=== PATIENT | male | born 1955 | race Caucasian/White ===

== ENCOUNTER 2017-04-02 08:38 | Inpatient (IN) | payer MEDICAID ==
[~2017-04-02] VITALS: Ht 185.4 cm; Wt 129.0 kg
[2017-04-02] MEDS ORDERED: SODIUM CHLORIDE 0.9% 1,000 ML IV ONE (10:44)
[2017-04-02] MEDS ORDERED: MORPHINE SULFATE 4 MG/ML SYRG IV ONE (11:00)
[2017-04-02] MEDS ORDERED: ONDANSETRON HCL 4 MG/2 ML VIAL IV ONE (11:00)
[2017-04-02 11:12] LABS: Basophils # (auto) 0 uL; Basophils % (auto) 0.5 % (0.0-2.0); Eosinophils # (auto) 0 uL; Eosinophils % (auto) 0.2 % (0.0-7.0); Hematocrit 55.8 % (41.0-53.0); Hemoglobin 18.6 g/dL (13.5-17.5); Lymphocytes # (auto) 0.9 uL; Lymphocytes % (auto) 9.1 % (10.0-50.0); Mean Corpuscular Hemoglobin 31.9 pg (28.0-32.0); Mean Corpuscular Hgb Conc. 33.4 g/dL (32.0-36.0); Mean Corpuscular Volume 95.6 fL (80.0-100.0); Mean Platelet Volume 10.1 fL (7.4-10.4); Monocytes % (auto) 10.4 % (0.0-12.0); Neutrophils # (auto) 7.5 uL; Neutrophils % (auto) 79.8 % (37.0-80.0); Red Cell Distribution Width 17.1 % (11.6-16.0); SUSPECT VIEW TRANSMISSION; White Blood Cell 9.4 10^3/uL (4.4-10.8)
[2017-04-02 11:14] LABS: Platelet Count (auto) 205 10^3/uL (140-450)
[2017-04-02 11:28] LABS: INR 1.14 (0.9-1.15); Partial Thromboplastin Time 24.6 sec (22.64-33.71)
[2017-04-02 11:29] LABS: Prothrombin Time 12.4 sec (9.37-12.3)
[2017-04-02 11:34] LABS: Albumin 2.7 g/dL (3.4-5.0); BUN/Creatinine Ratio 13.2; Bilirubin, Total 1.6 mg/dL (0.2-1.0); Calcium 8.8 mg/dL (8.5-10.1); Potassium 4.3 mmol/L (3.5-5.1); Total Protein 6.7 g/dL (6.4-8.2)
[2017-04-02 11:37] LABS: B-Type Natriuretic Peptide 574.73 pg/mL (0-100); Temperature: 23.7 C (20.0-25.0)
[2017-04-02] MEDS ORDERED: PIPERACILLIN-TAZOB 3.375GM 100 ML IV ONE (11:45)
[2017-04-02] MEDS ORDERED: NITROGLYCERIN 0.4 MG SL TAB SL PRN (14:45)
[2017-04-02] MEDS ORDERED: MORPHINE SULF INJ 2 MG/ML SYRINGE 1ML IV PRN (14:45)
[2017-04-02] MEDS ORDERED: DEXTROSE (50%) 50ML SYRG IV PRN (14:45)
[2017-04-02] MEDS ORDERED: FUROSEMIDE 40 MG/4 ML VIAL IV ONE (14:45)
[2017-04-02] MEDS ORDERED: ONDANSETRON HCL 4 MG/2 ML VIAL IV PRN (14:45)
[2017-04-02] MEDS ORDERED: POTASSIUM CHLORIDE 8 MEQ TAB PO ONE (14:45)
[2017-04-02] MEDS ORDERED: ENALAPRIL MALEATE 10 MG TAB PO ONE (15:00)
[2017-04-02 15:14] LABS: Allen Test Modified; Base Excess 3.7 mmol/L (-2.0-2.0); Blood 02Sat 98.6 % (96-100); Blood COHb 0.3 % (0.5-1.5); Blood MetHb 0.6 % (0.0-1.5); HCO3 34.4 mmol/L (22-26.0); HHb 1.4 % (0.0-5.0); MODE MASK - NRB; O2Hb 97.7 % (94.0-97.0); PCO2 75.6 mmHg (35.0-45.0); PCO2(T) 75.6 mmHg (35.0-45.0); Sample Type Arterial; pH 7.276 (7.350-7.450)
[2017-04-02] MEDS: ACCU-CHEK COMFORT CURVE STRIP VI SCH ×2 (17:58→23:45)
[2017-04-02 17:59] LABS: Allen Test Yes; Base Excess 2.1 mmol/L (-2.0-2.0); Blood COHb 0.5 % (0.5-1.5); Blood MetHb 0.5 % (0.0-1.5); HCO3 32.2 mmol/L (22-26.0); HHb 6.9 % (0.0-5.0); MODE NASAL CANNULA; O2Hb 92.1 % (94.0-97.0); PCO2 70.5 mmHg (35.0-45.0); PCO2(T) 70.5 mmHg (35.0-45.0); PO2 79.2 mmHg (80.0-100.0); PO2(T) 79.2 mmHg (80.0-100.0); Room 1009-ERT; Sample Type Arterial; pH 7.277 (7.350-7.450)
[2017-04-02] MEDS: InsuLIN REG 1unit/0.01ml Soln (100units/ml) SC SCH ×2 (18:02→23:46)
[2017-04-02 18:33] VITALS: BP 131/44
[2017-04-02 20:00] VITALS: BP 114/70
[2017-04-02] MEDS: HYDROcodone-ACET 5/325MG TAB PO PRN (20:29)
[2017-04-02] MEDS: ENALAPRIL MALEATE 10 MG TAB PO SCH (22:21)
[2017-04-03] VITALS (57 sets, daily range): BP systolic 57–163; BP diastolic 27–101
[2017-04-03] MEDS ORDERED: LEVO175T31 PO (00:41)
[2017-04-03] MEDS ORDERED: METO10TA3 PO (00:41)
[2017-04-03] MEDS ORDERED: [UNRECOGNIZED DRUG - CODE] PO (00:41)
[2017-04-03] MEDS ORDERED: SIMV-8 PO (00:41)
[2017-04-03] MEDS ORDERED: CHOL1TAB42 PO (00:41)
[2017-04-03] MEDS ORDERED: LORA-154 PO (00:41)
[2017-04-03] MEDS ORDERED: ESCI10TA53 PO (00:41)
[2017-04-03] MEDS ORDERED: ENA10T PO (00:41)
[2017-04-03] MEDS ORDERED: METF-372 PO (00:41)
[2017-04-03] MEDS: ACCU-CHEK COMFORT CURVE STRIP VI SCH ×3 (06:00→18:26)
[2017-04-03] MEDS: LEVOTHYROXINE SODIUM 50 MCG TAB PO SCH (06:36)
[2017-04-03] MEDS: HYDROcodone-ACET 5/325MG TAB PO PRN (06:37)
[2017-04-03] MEDS: InsuLIN REG 1unit/0.01ml Soln (100units/ml) SC SCH ×3 (06:37→18:27)
[2017-04-03 07:00] LABS: BUN/Creatinine Ratio 15.2; Calcium 8.8 mg/dL (8.5-10.1); Potassium 4.3 mmol/L (3.5-5.1)
[2017-04-03 07:09] LABS: Basophils # (auto) 0 uL; Eosinophils # (auto) 0.1 uL; Eosinophils % (auto) 0.7 % (0.0-7.0); Hematocrit 55.7 % (41.0-53.0); Hemoglobin 18.2 g/dL (13.5-17.5); Lymphocytes # (auto) 0.9 uL; Lymphocytes % (auto) 9.3 % (10.0-50.0); Mean Corpuscular Hemoglobin 31.9 pg (28.0-32.0); Mean Corpuscular Hgb Conc. 32.8 g/dL (32.0-36.0); Mean Corpuscular Volume 97.4 fL (80.0-100.0); Mean Platelet Volume 9.9 fL (7.4-10.4); Monocytes # (auto) 1.4 uL; Monocytes % (auto) 14.9 % (0.0-12.0); Neutrophils # (auto) 7.2 uL; Neutrophils % (auto) 75.1 % (37.0-80.0); Platelet Count (auto) 245 10^3/uL (140-450); Red Cell Distribution Width 17.8 % (11.6-16.0); White Blood Cell 9.6 10^3/uL (4.4-10.8)
[2017-04-03] MEDS ORDERED: ETOMIDATE (2MG/ML) 20ML VIAL IV ONE (08:29)
[2017-04-03] MEDS ORDERED: SUCCINYLCHOLINE CHLORIDE 20 MG/ML 10ML VIAL IV ONE (08:29)
[2017-04-03] MEDS ORDERED: PROPOFOL 100 ML IV ONE (08:30)
[2017-04-03] MEDS ORDERED: LEVOTHYROXINE SODIUM 100 MCG/5 ML INJ IV ONE ×2 (08:51→09:00)
[2017-04-03] MEDS: PROPOFOL 100 ML IV SCH (08:52)
[2017-04-03] MEDS ORDERED: cefTRIAXone 1GM/50ML D5W 50 ML IV ONE (09:00)
[2017-04-03 09:41] LABS: Allen Test Modified; Base Excess 0.9 mmol/L (-2.0-2.0); Blood 02Sat 96.7 % (96-100); Blood COHb 1.1 % (0.5-1.5); Blood MetHb 0.7 % (0.0-1.5); HCO3 30.8 mmol/L (22-26.0); HHb 3.2 % (0.0-5.0); MODE VENT - A/C; PCO2 69.3 mmHg (35.0-45.0); PCO2(T) 69.3 mmHg (35.0-45.0); PIP 42; PO2 96.1 mmHg (80.0-100.0); PO2(T) 96.1 mmHg (80.0-100.0); Room 0264D; Sample Type Arterial; pH 7.266 (7.350-7.450)
[2017-04-03] MEDS: FUROSEMIDE 40 MG/4 ML VIAL IV SCH (10:00)
[2017-04-03] MEDS: ENALAPRIL MALEATE 10 MG TAB PO SCH ×2 (10:00→22:00)
[2017-04-03] MEDS ORDERED: POTASSIUM CHLORIDE 8 MEQ TAB PO SCH (10:00)
[2017-04-03] MEDS: MIDAZOLAM DRIP 100 mg/100mL NS 100 ML IV SCH (11:33)
[2017-04-03] MEDS: cefTRIAXone 1GM/50ML D5W 50 ML IV SCH (13:20)
[2017-04-03] MEDS: POTASSIUM CHL 10% (20 MEQ/15ML) ORAL SOLN PO SCH (13:30)
[2017-04-03] MEDS: CLINDAMYCIN 600MG IV 50 ML IV SCH ×2 (13:50→23:00)
[2017-04-03] MEDS: NOREPINEPHRINE BITARTRATE 250 ML IV SCH (15:37)
[2017-04-03] MEDS ORDERED: LIDOCAINE 1% HCL (LOCAL ANESTH.) INJ 20ML MDV ID ONE (16:15)
[2017-04-03 18:25] LABS: Allen Test Modified; Base Excess 2.9 mmol/L (-2.0-2.0); Blood 02Sat 90.2 % (96-100); Blood COHb 0.5 % (0.5-1.5); Blood MetHb 0.5 % (0.0-1.5); HCO3 31.5 mmol/L (22-26.0); HHb 9.7 % (0.0-5.0); MODE VENT - A/C; O2Hb 89.3 % (94.0-97.0); PCO2 61.6 mmHg (35.0-45.0); PCO2(T) 61.6 mmHg (35.0-45.0); PO2 61.9 mmHg (80.0-100.0); PO2(T) 61.9 mmHg (80.0-100.0); Sample Type Arterial; pH 7.326 (7.350-7.450)
[2017-04-03] MEDS: IPRATROPIUM BROM 0.5 MG/2.5ML INH SOL NEB SCH (18:39)
[2017-04-03] MEDS: ALBUTEROL SULF 2.5 MG/0.5ML(0.5%) NEB SOLN NEB SCH (18:41)
[2017-04-03] MEDS: SODIUM CHLOR 0.9% PF (SALINE LOCK) 10ML VIAL IV SCH (23:00)
[2017-04-04] VITALS (92 sets, daily range): BP systolic 71–140; BP diastolic 50–99
[2017-04-04] MEDS: ALBUTEROL SULF 2.5 MG/0.5ML(0.5%) NEB SOLN NEB SCH ×3 (00:13→18:32)
[2017-04-04] MEDS: IPRATROPIUM BROM 0.5 MG/2.5ML INH SOL NEB SCH ×3 (00:13→18:32)
[2017-04-04] MEDS: InsuLIN REG 1unit/0.01ml Soln (100units/ml) SC SCH ×5 (00:30→23:56)
[2017-04-04] MEDS: ACCU-CHEK COMFORT CURVE STRIP VI SCH ×5 (00:30→23:56)
[2017-04-04 03:59] LABS: Basophils # (auto) 0 uL; Basophils % (auto) 0.2 % (0.0-2.0); Eosinophils # (auto) 0 uL; Eosinophils % (auto) 0.1 % (0.0-7.0); Hematocrit 55.6 % (41.0-53.0); Hemoglobin 17.9 g/dL (13.5-17.5); Lymphocytes # (auto) 0.8 uL; Lymphocytes % (auto) 6.8 % (10.0-50.0); Mean Corpuscular Hemoglobin 31.4 pg (28.0-32.0); Mean Corpuscular Hgb Conc. 32.2 g/dL (32.0-36.0); Mean Corpuscular Volume 97.5 fL (80.0-100.0); Mean Platelet Volume 9.3 fL (7.4-10.4); Monocytes # (auto) 1.4 uL; Monocytes % (auto) 11.5 % (0.0-12.0); Neutrophils % (auto) 81.4 % (37.0-80.0); Platelet Count (auto) 228 10^3/uL (140-450); Red Cell Distribution Width 17.7 % (11.6-16.0); White Blood Cell 12.3 10^3/uL (4.4-10.8)
[2017-04-04 04:16] LABS: Albumin 2.1 g/dL (3.4-5.0); Calcium 8.9 mg/dL (8.5-10.1); Potassium 4.2 mmol/L (3.5-5.1)
[2017-04-04 04:21] LABS: BUN/Creatinine Ratio 15.8
[2017-04-04 04:34] LABS: Bilirubin, Total 1.6 mg/dL (0.2-1.0); Total Protein 6.2 g/dL (6.4-8.2)
[2017-04-04] MEDS: CLINDAMYCIN 600MG IV 50 ML IV SCH ×3 (06:00→21:36)
[2017-04-04] MEDS: PROPOFOL 100 ML IV SCH (06:14)
[2017-04-04 07:35] LABS: Allen Test Yes; Base Excess 1.7 mmol/L (-2.0-2.0); Blood 02Sat 93.8 % (96-100); Blood COHb 0.8 % (0.5-1.5); Blood MetHb 0.4 % (0.0-1.5); HCO3 27.8 mmol/L (22-26.0); HHb 6.1 % (0.0-5.0); MODE VENT - A/C; O2Hb 92.7 % (94.0-97.0); PO2 72.1 mmHg (80.0-100.0); PO2(T) 72.1 mmHg (80.0-100.0); Sample Type Arterial
[2017-04-04] MEDS: cefTRIAXone 1GM/50ML D5W 50 ML IV SCH (09:06)
[2017-04-04] MEDS: FUROSEMIDE 40 MG/4 ML VIAL IV SCH (09:06)
[2017-04-04] MEDS: SODIUM CHLOR 0.9% PF (SALINE LOCK) 10ML VIAL IV SCH ×2 (09:07→21:37)
[2017-04-04] MEDS: ENALAPRIL MALEATE 10 MG TAB PO SCH (09:07)
[2017-04-04] MEDS: LEVOTHYROXINE SODIUM 50 MCG TAB PO SCH (09:07)
[2017-04-04] MEDS: POTASSIUM CHL 10% (20 MEQ/15ML) ORAL SOLN PO SCH (09:07)
[2017-04-04] MEDS: HYDROmorphone HCL 2 MG/ML VL IV PRN ×3 (09:13→20:09)
[2017-04-04] MEDS: MIDAZOLAM DRIP 100 mg/100mL NS 100 ML IV SCH (10:48)
[2017-04-04] MEDS: NOREPINEPHRINE BITARTRATE 250 ML IV SCH (10:49)
[2017-04-04] MEDS ORDERED: Diabetisource AC 1 Liter GT SCH (11:00)
[2017-04-04] MEDS ORDERED: ENOXAPARIN SOD 40 MG/0.4 ML SYRINGE SC ONE (11:30)
[2017-04-04] MEDS ORDERED: PANTOPRAZOLE SODIUM 40 MG/10 ML VIAL IV ONE (11:45)
[2017-04-05] VITALS (100 sets, daily range): BP systolic 92–146; BP diastolic 58–100
[2017-04-05] MEDS: MIDAZOLAM DRIP 100 mg/100mL NS 100 ML IV SCH
[2017-04-05] MEDS: IPRATROPIUM BROM 0.5 MG/2.5ML INH SOL NEB SCH ×4 (00:27→18:21)
[2017-04-05] MEDS: ALBUTEROL SULF 2.5 MG/0.5ML(0.5%) NEB SOLN NEB SCH ×4 (00:27→18:21)
[2017-04-05] MEDS: HYDROmorphone HCL 2 MG/ML VL IV PRN ×3 (01:33→11:08)
[2017-04-05 01:59] LABS: Allen Test Yes; Base Excess 1.4 mmol/L (-2.0-2.0); Blood 02Sat 89.7 % (96-100); Blood COHb 0.3 % (0.5-1.5); Blood MetHb 0.5 % (0.0-1.5); HCO3 27.3 mmol/L (22-26.0); HHb 10.2 % (0.0-5.0); MODE VENT - A/C; PCO2 46.8 mmHg (35.0-45.0); PCO2(T) 46.8 mmHg (35.0-45.0); PO2 60.2 mmHg (80.0-100.0); PO2(T) 60.2 mmHg (80.0-100.0); Sample Type Arterial; pH 7.384 (7.350-7.450)
[2017-04-05] MEDS: PROPOFOL 100 ML IV SCH (03:36)
[2017-04-05 04:17] LABS: Basophils # (auto) 0 uL; Basophils % (auto) 0.2 % (0.0-2.0); Eosinophils # (auto) 0 uL; Eosinophils % (auto) 0.2 % (0.0-7.0); Hemoglobin 17.8 g/dL (13.5-17.5); Lymphocytes # (auto) 0.7 uL; Lymphocytes % (auto) 6.2 % (10.0-50.0); Mean Corpuscular Hemoglobin 31.6 pg (28.0-32.0); Mean Corpuscular Hgb Conc. 32.3 g/dL (32.0-36.0); Mean Corpuscular Volume 97.9 fL (80.0-100.0); Mean Platelet Volume 8.8 fL (7.4-10.4); Monocytes # (auto) 1.3 uL; Neutrophils # (auto) 8.5 uL; Neutrophils % (auto) 81.4 % (37.0-80.0); Platelet Count (auto) 213 10^3/uL (140-450); Red Cell Distribution Width 17.7 % (11.6-16.0); White Blood Cell 10.5 10^3/uL (4.4-10.8)
[2017-04-05 04:45] LABS: BUN/Creatinine Ratio 21.2; Calcium 8.8 mg/dL (8.5-10.1); Potassium 4.5 mmol/L (3.5-5.1)
[2017-04-05] MEDS: CLINDAMYCIN 600MG IV 50 ML IV SCH ×3 (05:41→21:40)
[2017-04-05] MEDS: ACCU-CHEK COMFORT CURVE STRIP VI SCH ×3 (05:42→17:39)
[2017-04-05] MEDS: InsuLIN REG 1unit/0.01ml Soln (100units/ml) SC SCH ×3 (05:42→18:06)
[2017-04-05] MEDS: LEVOTHYROXINE SODIUM 50 MCG TAB PO SCH (06:30)
[2017-04-05 08:57] LABS: Urine Bilirubin Negative (Negative); Urine Color Yellow (Yellow); Urine Glucose TRACE mg/dL (Normal); Urine Nitrite Negative (Negative); Urine RBC 75 /hpf (0 - 3); Urine Squamous Epithelial Cell FEW /hpf (<5)
[2017-04-05 08:58] LABS: Urine Blood 3+ /uL (Negative); Urine Ketone 1+ (Negative)
[2017-04-05] MEDS ORDERED: ENOXAPARIN SOD 40 MG/0.4 ML SYRINGE SC SCH (10:00)
[2017-04-05] MEDS ORDERED: ENOXAPARIN SOD 100 MG/1 ML SYRINGE SC SCH (10:00)
[2017-04-05] MEDS: cefTRIAXone 1GM/50ML D5W 50 ML IV SCH (10:14)
[2017-04-05] MEDS: PANTOPRAZOLE SODIUM 40 MG/10 ML VIAL IV SCH (10:15)
[2017-04-05] MEDS: FUROSEMIDE 40 MG/4 ML VIAL IV SCH (10:15)
[2017-04-05] MEDS: POTASSIUM CHL 10% (20 MEQ/15ML) ORAL SOLN PO SCH (10:15)
[2017-04-05] MEDS: SODIUM CHLOR 0.9% PF (SALINE LOCK) 10ML VIAL IV SCH ×2 (10:15→21:40)
[2017-04-05 10:45] LABS: Allen Test Yes; Base Excess 4.2 mmol/L (-2.0-2.0); Blood 02Sat 92.3 % (96-100); Blood COHb 0.3 % (0.5-1.5); Blood MetHb 0.5 % (0.0-1.5); HCO3 28.7 mmol/L (22-26.0); HHb 7.6 % (0.0-5.0); MODE VENT - A/C; O2Hb 91.6 % (94.0-97.0); PCO2 41.9 mmHg (35.0-45.0); PCO2(T) 41.9 mmHg (35.0-45.0); PO2 64.9 mmHg (80.0-100.0); PO2(T) 64.9 mmHg (80.0-100.0); Sample Type Arterial; pH 7.453 (7.350-7.450)
[2017-04-05] MEDS ORDERED: ENOXAPARIN SOD 120 MG/0.8 ML SYRINGE SC ONE (12:15)
[2017-04-05] MEDS ORDERED: Diabetisource AC 1 Liter GT SCH ×3 (13:00)
[2017-04-05 14:42] LABS: Allen Test Yes; Base Excess 3.2 mmol/L (-2.0-2.0); Blood 02Sat 91.2 % (96-100); Blood COHb 0.3 % (0.5-1.5); Blood MetHb 0.5 % (0.0-1.5); HCO3 28.7 mmol/L (22-26.0); HHb 8.7 % (0.0-5.0); MODE VENT - A/C; O2Hb 90.5 % (94.0-97.0); PCO2 45.7 mmHg (35.0-45.0); PCO2(T) 45.7 mmHg (35.0-45.0); PO2 63.5 mmHg (80.0-100.0); PO2(T) 63.5 mmHg (80.0-100.0); Sample Type Arterial; pH 7.416 (7.350-7.450)
[2017-04-05] MEDS: INSULIN DETEMIR(LEVEMIR) 1unit/0.01ml Soln (100units/ml) SC SCH ×2 (14:58→21:44)
[2017-04-05] MEDS: NOREPINEPHRINE BITARTRATE 250 ML IV SCH (15:00)
[2017-04-05] MEDS: ENOXAPARIN SOD 120 MG/0.8 ML SYRINGE SC SCH (21:49)
[2017-04-06] VITALS (109 sets, daily range): BP systolic 70–142; BP diastolic 38–98
[2017-04-06] MEDS: MIDAZOLAM DRIP 100 mg/100mL NS 100 ML IV SCH ×3 (00:20→23:00)
[2017-04-06] MEDS: InsuLIN REG 1unit/0.01ml Soln (100units/ml) SC SCH ×5 (00:21→23:43)
[2017-04-06] MEDS: ACCU-CHEK COMFORT CURVE STRIP VI SCH ×5 (00:21→23:42)
[2017-04-06] MEDS: IPRATROPIUM BROM 0.5 MG/2.5ML INH SOL NEB SCH ×4 (00:53→18:55)
[2017-04-06] MEDS: ALBUTEROL SULF 2.5 MG/0.5ML(0.5%) NEB SOLN NEB SCH ×4 (00:53→18:55)
[2017-04-06] MEDS: PROPOFOL 100 ML IV SCH ×2 (00:58→22:20)
[2017-04-06] MEDS: HYDROcodone-ACET 5/325MG TAB PO PRN ×2 (04:42→22:12)
[2017-04-06 04:43] LABS: Basophils # (auto) 0 uL; Basophils % (auto) 0.3 % (0.0-2.0); Eosinophils # (auto) 0 uL; Eosinophils % (auto) 0.5 % (0.0-7.0); Hematocrit 54.1 % (41.0-53.0); Hemoglobin 17.5 g/dL (13.5-17.5); Lymphocytes # (auto) 0.8 uL; Lymphocytes % (auto) 8.3 % (10.0-50.0); Mean Corpuscular Hemoglobin 31.6 pg (28.0-32.0); Mean Corpuscular Hgb Conc. 32.4 g/dL (32.0-36.0); Mean Corpuscular Volume 97.6 fL (80.0-100.0); Mean Platelet Volume 9.6 fL (7.4-10.4); Monocytes # (auto) 1.2 uL; Neutrophils # (auto) 7.1 uL; Neutrophils % (auto) 77.9 % (37.0-80.0); Platelet Count (auto) 177 10^3/uL (140-450); Red Cell Distribution Width 17.3 % (11.6-16.0); White Blood Cell 9.1 10^3/uL (4.4-10.8)
[2017-04-06] MEDS: Diabetisource AC 1 Liter GT SCH (04:43)
[2017-04-06 05:01] LABS: BUN/Creatinine Ratio 22.8; Potassium 4.3 mmol/L (3.5-5.1)
[2017-04-06] MEDS: CLINDAMYCIN 600MG IV 50 ML IV SCH ×3 (06:19→22:07)
[2017-04-06] MEDS: LEVOTHYROXINE SODIUM 50 MCG TAB PO SCH (06:20)
[2017-04-06 07:00] LABS: Base Excess 3.2 mmol/L (-2.0-2.0); Blood 02Sat 97.6 % (96-100); Blood COHb 1.2 % (0.5-1.5); Blood MetHb 0.4 % (0.0-1.5); HCO3 27.4 mmol/L (22-26.0); HHb 2.4 % (0.0-5.0); MODE VENT - A/C; PCO2 40.1 mmHg (35.0-45.0); PCO2(T) 40.1 mmHg (35.0-45.0); PO2 100.8 mmHg (80.0-100.0); PO2(T) 100.8 mmHg (80.0-100.0); Sample Type Arterial; pH 7.452 (7.350-7.450)
[2017-04-06] MEDS: cefTRIAXone 1GM/50ML D5W 50 ML IV SCH (08:54)
[2017-04-06] MEDS: HYDROmorphone HCL 2 MG/ML VL IV PRN ×2 (08:55→14:05)
[2017-04-06] MEDS: PANTOPRAZOLE SODIUM 40 MG/10 ML VIAL IV SCH (10:07)
[2017-04-06] MEDS: ENOXAPARIN SOD 120 MG/0.8 ML SYRINGE SC SCH ×2 (10:07→22:08)
[2017-04-06] MEDS: POTASSIUM CHL 10% (20 MEQ/15ML) ORAL SOLN PO SCH (10:08)
[2017-04-06] MEDS: SODIUM CHLOR 0.9% PF (SALINE LOCK) 10ML VIAL IV SCH ×2 (10:08→22:07)
[2017-04-06] MEDS: FUROSEMIDE 40 MG TAB PO SCH (10:20)
[2017-04-06] MEDS: INSULIN DETEMIR(LEVEMIR) 1unit/0.01ml Soln (100units/ml) SC SCH ×2 (10:30→22:08)
[2017-04-06] MEDS: NOREPINEPHRINE BITARTRATE 250 ML IV SCH (15:40)
[2017-04-06 16:47] LABS: Base Excess 1.2 mmol/L (-2.0-2.0); Blood 02Sat 91.6 % (96-100); Blood COHb 0.9 % (0.5-1.5); Blood MetHb 0.3 % (0.0-1.5); HCO3 26.5 mmol/L (22-26.0); HHb 8.3 % (0.0-5.0); MODE VENT - A/C; O2Hb 90.5 % (94.0-97.0); Sample Type Arterial; pH 7.397 (7.350-7.450)
[2017-04-07] VITALS (96 sets, daily range): BP systolic 76–127; BP diastolic 48–100
[2017-04-07] MEDS: IPRATROPIUM BROM 0.5 MG/2.5ML INH SOL NEB SCH ×4 (00:15→18:11)
[2017-04-07] MEDS: ALBUTEROL SULF 2.5 MG/0.5ML(0.5%) NEB SOLN NEB SCH ×4 (00:15→18:11)
[2017-04-07] MEDS: MIDAZOLAM DRIP 100 mg/100mL NS 100 ML IV SCH ×3 (05:00→23:57)
[2017-04-07] MEDS: Diabetisource AC 1 Liter GT SCH (05:00)
[2017-04-07] MEDS: HYDROcodone-ACET 5/325MG TAB PO PRN ×3 (05:01→22:31)
[2017-04-07 05:40] LABS: Basophils # (auto) 0 uL; Basophils % (auto) 0.3 % (0.0-2.0); Eosinophils # (auto) 0.1 uL; Eosinophils % (auto) 1.6 % (0.0-7.0); Hematocrit 51.3 % (41.0-53.0); Hemoglobin 16.5 g/dL (13.5-17.5); Lymphocytes # (auto) 0.9 uL; Lymphocytes % (auto) 10.6 % (10.0-50.0); Mean Corpuscular Hemoglobin 31.5 pg (28.0-32.0); Mean Corpuscular Hgb Conc. 32.2 g/dL (32.0-36.0); Mean Corpuscular Volume 97.8 fL (80.0-100.0); Mean Platelet Volume 9.9 fL (7.4-10.4); Monocytes # (auto) 1.1 uL; Monocytes % (auto) 13.7 % (0.0-12.0); Neutrophils # (auto) 6.1 uL; Neutrophils % (auto) 73.8 % (37.0-80.0); Platelet Count (auto) 179 10^3/uL (140-450); Red Cell Distribution Width 18.1 % (11.6-16.0); White Blood Cell 8.2 10^3/uL (4.4-10.8)
[2017-04-07 06:01] LABS: Albumin 2.3 g/dL (3.4-5.0); BUN/Creatinine Ratio 24.6; Potassium 4.7 mmol/L (3.5-5.1)
[2017-04-07 06:03] LABS: Bilirubin, Total 1.2 mg/dL (0.2-1.0); Total Protein 6.9 g/dL (6.4-8.2)
[2017-04-07] MEDS: ACCU-CHEK COMFORT CURVE STRIP VI SCH ×3 (06:30→18:26)
[2017-04-07] MEDS: CLINDAMYCIN 600MG IV 50 ML IV SCH ×3 (06:30→21:34)
[2017-04-07] MEDS: InsuLIN REG 1unit/0.01ml Soln (100units/ml) SC SCH ×4 (06:31→23:57)
[2017-04-07] MEDS: LEVOTHYROXINE SODIUM 50 MCG TAB PO SCH (06:32)
[2017-04-07] MEDS: cefTRIAXone 1GM/50ML D5W 50 ML IV SCH (08:43)
[2017-04-07] MEDS: INSULIN DETEMIR(LEVEMIR) 1unit/0.01ml Soln (100units/ml) SC SCH ×2 (10:00→21:36)
[2017-04-07] MEDS: SODIUM CHLOR 0.9% PF (SALINE LOCK) 10ML VIAL IV SCH ×2 (10:12→21:36)
[2017-04-07] MEDS: PANTOPRAZOLE SODIUM 40 MG/10 ML VIAL IV SCH (10:12)
[2017-04-07] MEDS: ENOXAPARIN SOD 120 MG/0.8 ML SYRINGE SC SCH ×2 (10:12→21:34)
[2017-04-07] MEDS: POTASSIUM CHL 10% (20 MEQ/15ML) ORAL SOLN PO SCH (10:12)
[2017-04-07] MEDS: FUROSEMIDE 40 MG TAB PO SCH (10:12)
[2017-04-07 12:50] LABS: Allen Test Modified; Base Excess 6.2 mmol/L (-2.0-2.0); Blood 02Sat 92.9 % (96-100); Blood COHb 0.9 % (0.5-1.5); Blood MetHb 0.3 % (0.0-1.5); HCO3 32.3 mmol/L (22-26.0); MODE VENT - A/C; O2Hb 91.8 % (94.0-97.0); PCO2 50.8 mmHg (35.0-45.0); PCO2(T) 52.6 mmHg (35.0-45.0); PO2 70.1 mmHg (80.0-100.0); Sample Type Arterial; pH 7.421 (7.350-7.450)
[2017-04-07] MEDS: NOREPINEPHRINE BITARTRATE 250 ML IV SCH (15:00)
[2017-04-07 15:56] LABS: BUN/Creatinine Ratio 27.7; Calcium 8.5 mg/dL (8.5-10.1); Potassium 4.1 mmol/L (3.5-5.1)
[2017-04-07] MEDS: FREE WATER GT SCH (18:26)
[2017-04-07] MEDS: PROPOFOL 100 ML IV SCH (19:42)
[2017-04-08] VITALS (105 sets, daily range): BP systolic 83–145; BP diastolic 52–97
[2017-04-08] MEDS: ACCU-CHEK COMFORT CURVE STRIP VI SCH ×4 (00:04→17:59)
[2017-04-08] MEDS: FREE WATER GT SCH ×4 (00:04→18:00)
[2017-04-08] MEDS: ALBUTEROL SULF 2.5 MG/0.5ML(0.5%) NEB SOLN NEB SCH ×4 (00:15→18:24)
[2017-04-08] MEDS: IPRATROPIUM BROM 0.5 MG/2.5ML INH SOL NEB SCH ×4 (00:15→18:24)
[2017-04-08] MEDS: HYDROcodone-ACET 5/325MG TAB PO PRN (05:04)
[2017-04-08] MEDS: CLINDAMYCIN 600MG IV 50 ML IV SCH ×3 (06:22→22:00)
[2017-04-08] MEDS: LEVOTHYROXINE SODIUM 50 MCG TAB PO SCH (06:23)
[2017-04-08] MEDS: InsuLIN REG 1unit/0.01ml Soln (100units/ml) SC SCH ×3 (06:23→17:59)
[2017-04-08 07:29] LABS: Base Excess 6.8 mmol/L (-2.0-2.0); Blood 02Sat 94.6 % (96-100); Blood COHb 1.5 % (0.5-1.5); Blood MetHb 0.3 % (0.0-1.5); HCO3 32.6 mmol/L (22-26.0); HHb 5.3 % (0.0-5.0); MODE VENT - A/C; O2Hb 92.9 % (94.0-97.0); PCO2 49.6 mmHg (35.0-45.0); PCO2(T) 49.6 mmHg (35.0-45.0); PO2 74.6 mmHg (80.0-100.0); PO2(T) 74.6 mmHg (80.0-100.0); Sample Type Arterial; pH 7.435 (7.350-7.450)
[2017-04-08] MEDS: MIDAZOLAM DRIP 100 mg/100mL NS 100 ML IV SCH ×2 (07:32→21:35)
[2017-04-08] MEDS: cefTRIAXone 1GM/50ML D5W 50 ML IV SCH (09:13)
[2017-04-08] MEDS: PANTOPRAZOLE SODIUM 40 MG/10 ML VIAL IV SCH (09:52)
[2017-04-08] MEDS: SODIUM CHLOR 0.9% PF (SALINE LOCK) 10ML VIAL IV SCH ×2 (09:52→22:00)
[2017-04-08] MEDS: FUROSEMIDE 40 MG TAB PO SCH (09:53)
[2017-04-08] MEDS: POTASSIUM CHL 10% (20 MEQ/15ML) ORAL SOLN PO SCH (09:53)
[2017-04-08] MEDS: ENOXAPARIN SOD 120 MG/0.8 ML SYRINGE SC SCH ×2 (09:53→22:00)
[2017-04-08] MEDS: INSULIN DETEMIR(LEVEMIR) 1unit/0.01ml Soln (100units/ml) SC SCH ×2 (10:18→22:00)
[2017-04-08] MEDS ORDERED: FUROSEMIDE 40 MG/4 ML VIAL IV ONE (12:30)
[2017-04-08] MEDS ORDERED: LEVOTHYROXINE SODIUM 100 MCG/5 ML INJ IV ONE (12:30)
[2017-04-08] MEDS ORDERED: POTASSIUM CHL 10% (20 MEQ/15ML) ORAL SOLN PO ONE (12:30)
[2017-04-08] MEDS: NOREPINEPHRINE BITARTRATE 250 ML IV SCH (15:00)
[2017-04-08] MEDS: PROPOFOL 100 ML IV SCH ×2 (17:04→21:35)
[2017-04-09] VITALS (105 sets, daily range): BP systolic 82–156; BP diastolic 48–95
[2017-04-09] MEDS: ALBUTEROL SULF 2.5 MG/0.5ML(0.5%) NEB SOLN NEB SCH ×4 (00:19→18:14)
[2017-04-09] MEDS: IPRATROPIUM BROM 0.5 MG/2.5ML INH SOL NEB SCH ×4 (00:19→18:14)
[2017-04-09 04:01] LABS: Basophils # (auto) 0 uL; Eosinophils # (auto) 0.2 uL; Hematocrit 50.4 % (41.0-53.0); Lymphocytes # (auto) 0.8 uL; Lymphocytes % (auto) 9.9 % (10.0-50.0); Mean Corpuscular Hemoglobin 31.6 pg (28.0-32.0); Mean Corpuscular Hgb Conc. 31.8 g/dL (32.0-36.0); Mean Corpuscular Volume 99.3 fL (80.0-100.0); Mean Platelet Volume 10.2 fL (7.4-10.4); Monocytes % (auto) 12.3 % (0.0-12.0); Neutrophils # (auto) 5.9 uL; Neutrophils % (auto) 75.8 % (37.0-80.0); Platelet Count (auto) 161 10^3/uL (140-450); Red Cell Distribution Width 17.5 % (11.6-16.0); SUSPECT VIEW TRANSMISSION; White Blood Cell 7.8 10^3/uL (4.4-10.8)
[2017-04-09 04:18] LABS: BUN/Creatinine Ratio 27.9; Calcium 9.1 mg/dL (8.5-10.1); Potassium 4.2 mmol/L (3.5-5.1)
[2017-04-09] MEDS: InsuLIN REG 1unit/0.01ml Soln (100units/ml) SC SCH ×4 (06:00→17:58)
[2017-04-09] MEDS: ACCU-CHEK COMFORT CURVE STRIP VI SCH ×4 (06:19→17:58)
[2017-04-09] MEDS: LEVOTHYROXINE SODIUM 50 MCG TAB PO SCH (06:19)
[2017-04-09] MEDS: FREE WATER GT SCH ×5 (06:19→22:02)
[2017-04-09] MEDS: CLINDAMYCIN 600MG IV 50 ML IV SCH ×3 (06:19→22:01)
[2017-04-09] MEDS: PROPOFOL 100 ML IV SCH ×2 (06:58→20:14)
[2017-04-09 07:10] LABS: Allen Test Yes; Base Excess 8.3 mmol/L (-2.0-2.0); Blood 02Sat 92.2 % (96-100); Blood COHb 1.2 % (0.5-1.5); Blood MetHb 0.3 % (0.0-1.5); HCO3 34.1 mmol/L (22-26.0); HHb 7.7 % (0.0-5.0); MODE VENT - A/C; O2Hb 90.8 % (94.0-97.0); PCO2 49.9 mmHg (35.0-45.0); PCO2(T) 49.9 mmHg (35.0-45.0); PO2 64.2 mmHg (80.0-100.0); PO2(T) 64.2 mmHg (80.0-100.0); Sample Type Arterial; pH 7.452 (7.350-7.450)
[2017-04-09] MEDS: cefTRIAXone 1GM/50ML D5W 50 ML IV SCH (09:18)
[2017-04-09] MEDS: SODIUM CHLOR 0.9% PF (SALINE LOCK) 10ML VIAL IV SCH ×2 (09:35→20:14)
[2017-04-09] MEDS: PANTOPRAZOLE SODIUM 40 MG/10 ML VIAL IV SCH (09:35)
[2017-04-09] MEDS: FUROSEMIDE 40 MG TAB PO SCH (09:36)
[2017-04-09] MEDS: ENOXAPARIN SOD 120 MG/0.8 ML SYRINGE SC SCH ×2 (09:36→22:01)
[2017-04-09] MEDS: HYDROcodone-ACET 5/325MG TAB PO PRN ×2 (09:36→16:41)
[2017-04-09] MEDS: POTASSIUM CHL 10% (20 MEQ/15ML) ORAL SOLN PO SCH (09:36)
[2017-04-09] MEDS: INSULIN DETEMIR(LEVEMIR) 1unit/0.01ml Soln (100units/ml) SC SCH ×2 (09:42→22:04)
[2017-04-09] MEDS: Diabetisource AC 1 Liter GT SCH (12:46)
[2017-04-09] MEDS ORDERED: MORPHINE SULF INJ 2 MG/ML SYRINGE 1ML IV PRN (13:00)
[2017-04-09] MEDS ORDERED: FUROSEMIDE 40 MG/4 ML VIAL IV ONE (13:00)
[2017-04-09] MEDS ORDERED: POTASSIUM CHL 10% (20 MEQ/15ML) ORAL SOLN PO ONE (13:00)
[2017-04-09] MEDS ORDERED: LEVOTHYROXINE SODIUM 100 MCG/5 ML INJ IV ONE (13:00)
[2017-04-09] MEDS: NOREPINEPHRINE BITARTRATE 250 ML IV SCH (15:00)
[2017-04-09] MEDS: HYDROmorphone HCL 2 MG/ML VL IV PRN (22:45)
[2017-04-09 23:13] LABS: Allen Test Modified; Base Excess 9.6 mmol/L (-2.0-2.0); Blood 02Sat 96.3 % (96-100); Blood COHb 1.2 % (0.5-1.5); Blood MetHb 0.3 % (0.0-1.5); HCO3 35.5 mmol/L (22-26.0); HHb 3.6 % (0.0-5.0); MODE VENT - A/C; O2Hb 94.9 % (94.0-97.0); PCO2 51.3 mmHg (35.0-45.0); PCO2(T) 51.3 mmHg (35.0-45.0); PO2 86.9 mmHg (80.0-100.0); PO2(T) 86.9 mmHg (80.0-100.0); Sample Type Arterial; pH 7.458 (7.350-7.450)
[2017-04-10] VITALS (105 sets, daily range): BP systolic 79–143; BP diastolic 41–96
[2017-04-10] MEDS: ACCU-CHEK COMFORT CURVE STRIP VI SCH ×4 (00:14→18:28)
[2017-04-10] MEDS: InsuLIN REG 1unit/0.01ml Soln (100units/ml) SC SCH ×4 (00:15→18:28)
[2017-04-10] MEDS: IPRATROPIUM BROM 0.5 MG/2.5ML INH SOL NEB SCH ×4 (00:57→18:24)
[2017-04-10] MEDS: ALBUTEROL SULF 2.5 MG/0.5ML(0.5%) NEB SOLN NEB SCH ×4 (00:57→18:24)
[2017-04-10] MEDS: PROPOFOL 100 ML IV SCH ×3 (02:52→14:38)
[2017-04-10] MEDS: CLINDAMYCIN 600MG IV 50 ML IV SCH ×2 (05:59→14:37)
[2017-04-10] MEDS: LEVOTHYROXINE SODIUM 50 MCG TAB PO SCH (05:59)
[2017-04-10] MEDS: FREE WATER GT SCH ×3 (05:59→18:28)
[2017-04-10 06:33] LABS: Calcium 8.9 mg/dL (8.5-10.1); Potassium 3.9 mmol/L (3.5-5.1)
[2017-04-10 06:35] LABS: BUN/Creatinine Ratio 25.6
[2017-04-10 07:40] LABS: Allen Test Yes; Base Excess 6.8 mmol/L (-2.0-2.0); Blood 02Sat 95.3 % (96-100); Blood COHb 0.9 % (0.5-1.5); Blood MetHb 0.4 % (0.0-1.5); HCO3 32.5 mmol/L (22-26.0); HHb 4.6 % (0.0-5.0); MODE VENT - A/C; O2Hb 94.1 % (94.0-97.0); PCO2 49.5 mmHg (35.0-45.0); PCO2(T) 49.5 mmHg (35.0-45.0); PO2 81.7 mmHg (80.0-100.0); PO2(T) 81.7 mmHg (80.0-100.0); Sample Type Arterial; pH 7.435 (7.350-7.450)
[2017-04-10] MEDS: NOREPINEPHRINE BITARTRATE 250 ML IV SCH ×2 (08:10→14:37)
[2017-04-10] MEDS: HYDROmorphone HCL 2 MG/ML VL IV PRN (08:36)
[2017-04-10] MEDS: MIDAZOLAM DRIP 100 mg/100mL NS 100 ML IV SCH ×2 (08:52→23:19)
[2017-04-10] MEDS: cefTRIAXone 1GM/50ML D5W 50 ML IV SCH (08:56)
[2017-04-10] MEDS: SODIUM CHLOR 0.9% PF (SALINE LOCK) 10ML VIAL IV SCH ×2 (10:08→21:07)
[2017-04-10] MEDS: PANTOPRAZOLE SODIUM 40 MG/10 ML VIAL IV SCH (10:08)
[2017-04-10] MEDS: FUROSEMIDE 40 MG TAB PO SCH (10:09)
[2017-04-10] MEDS: POTASSIUM CHL 10% (20 MEQ/15ML) ORAL SOLN PO SCH (10:09)
[2017-04-10] MEDS: ENOXAPARIN SOD 120 MG/0.8 ML SYRINGE SC SCH (10:09)
[2017-04-10] MEDS: INSULIN DETEMIR(LEVEMIR) 1unit/0.01ml Soln (100units/ml) SC SCH ×2 (10:38→21:10)
[2017-04-10] MEDS: D5W 5% 1,000 ML IV SCH (13:10)
[2017-04-10] MEDS ORDERED: IOHEXOL 350 MG/ML 100ML IJ ONE (16:12)
[2017-04-10] MEDS: LACTULOSE 20Gm/30ML SOLN PO SCH (18:28)
[2017-04-10] MEDS: PIPERACILLIN-TAZOB 3.375GM 100 ML IV SCH (18:28)
[2017-04-10] MEDS: ENOXAPARIN SOD 150 MG/1 ML SYRINGE SC SCH (21:07)
[2017-04-10] MEDS ORDERED: MIDAZOLAM DRIP 100 mg/100mL NS 100 ML IV ONE (23:13)
[2017-04-11] VITALS (104 sets, daily range): BP systolic 84–128; BP diastolic 49–91
[2017-04-11] MEDS: ALBUTEROL SULF 2.5 MG/0.5ML(0.5%) NEB SOLN NEB SCH ×4 (00:10→18:18)
[2017-04-11] MEDS: IPRATROPIUM BROM 0.5 MG/2.5ML INH SOL NEB SCH ×4 (00:10→18:18)
[2017-04-11] MEDS: PROPOFOL 100 ML IV SCH (00:37)
[2017-04-11 04:07] LABS: Basophils # (auto) 0 uL; Basophils % (auto) 0.3 % (0.0-2.0); Eosinophils # (auto) 0.2 uL; Eosinophils % (auto) 2.8 % (0.0-7.0); Hematocrit 48.9 % (41.0-53.0); Hemoglobin 15.6 g/dL (13.5-17.5); Lymphocytes # (auto) 1.2 uL; Lymphocytes % (auto) 17.2 % (10.0-50.0); Mean Corpuscular Hemoglobin 31.5 pg (28.0-32.0); Mean Corpuscular Volume 98.6 fL (80.0-100.0); Mean Platelet Volume 10.9 fL (7.4-10.4); Monocytes # (auto) 0.8 uL; Monocytes % (auto) 12.6 % (0.0-12.0); Neutrophils # (auto) 4.5 uL; Neutrophils % (auto) 67.1 % (37.0-80.0); Platelet Count (auto) 243 10^3/uL (140-450); Red Cell Distribution Width 17.1 % (11.6-16.0); SUSPECT VIEW TRANSMISSION; White Blood Cell 6.7 10^3/uL (4.4-10.8)
[2017-04-11 04:22] LABS: Calcium 8.9 mg/dL (8.5-10.1); Potassium 3.9 mmol/L (3.5-5.1)
[2017-04-11 04:24] LABS: Albumin 2.2 g/dL (3.4-5.0)
[2017-04-11 04:38] LABS: Bilirubin, Total 0.7 mg/dL (0.2-1.0); Total Protein 6.7 g/dL (6.4-8.2)
[2017-04-11] MEDS: HYDROcodone-ACET 5/325MG TAB PO PRN ×2 (05:55→12:53)
[2017-04-11] MEDS: FREE WATER GT SCH ×4 (06:25→17:57)
[2017-04-11] MEDS: PIPERACILLIN-TAZOB 3.375GM 100 ML IV SCH ×4 (06:25→18:00)
[2017-04-11] MEDS: LACTULOSE 20Gm/30ML SOLN PO SCH ×4 (06:25→17:58)
[2017-04-11] MEDS: InsuLIN REG 1unit/0.01ml Soln (100units/ml) SC SCH ×4 (06:26→17:58)
[2017-04-11] MEDS: LEVOTHYROXINE SODIUM 50 MCG TAB PO SCH (06:26)
[2017-04-11] MEDS: ACCU-CHEK COMFORT CURVE STRIP VI SCH ×4 (06:26→17:58)
[2017-04-11 08:04] LABS: Allen Test Modified; Base Excess 3.7 mmol/L (-2.0-2.0); Blood 02Sat 93.4 % (96-100); Blood COHb 1.1 % (0.5-1.5); Blood MetHb 0.4 % (0.0-1.5); HCO3 28.7 mmol/L (22-26.0); HHb 6.5 % (0.0-5.0); MODE VENT - A/C; PIP 31; PO2 70.8 mmHg (80.0-100.0); PO2(T) 70.8 mmHg (80.0-100.0); Sample Type Arterial; pH 7.432 (7.350-7.450)
[2017-04-11] MEDS: INSULIN DETEMIR(LEVEMIR) 1unit/0.01ml Soln (100units/ml) SC SCH ×2 (10:00→21:44)
[2017-04-11] MEDS: ENOXAPARIN SOD 150 MG/1 ML SYRINGE SC SCH ×2 (10:02→21:44)
[2017-04-11] MEDS: SODIUM CHLOR 0.9% PF (SALINE LOCK) 10ML VIAL IV SCH ×2 (10:02→21:33)
[2017-04-11] MEDS: PANTOPRAZOLE SODIUM 40 MG/10 ML VIAL IV SCH (10:02)
[2017-04-11] MEDS: D5W 5% 1,000 ML IV SCH (10:02)
[2017-04-11] MEDS ORDERED: FLUCONAZOLE 200MG/100ML 100 ML IV ONE (11:15)
[2017-04-11] MEDS: NOREPINEPHRINE BITARTRATE 250 ML IV SCH (15:00)
[2017-04-11 19:02] LABS: B-Type Natriuretic Peptide 92.19 pg/mL (0-100)
[2017-04-11] MEDS: ACETAMINOPHEN 500 MG TAB PO PRN (19:20)
[2017-04-11 19:24] LABS: Temperature: 23.1 C (20.0-25.0)
[2017-04-12] VITALS (97 sets, daily range): BP systolic 84–124; BP diastolic 51–80
[2017-04-12] MEDS: PROPOFOL 100 ML IV SCH (00:05)
[2017-04-12] MEDS: D5W 5% 1,000 ML IV SCH (04:13)
[2017-04-12 04:20] LABS: Calcium 8.6 mg/dL (8.5-10.1); Potassium 3.3 mmol/L (3.5-5.1)
[2017-04-12] MEDS: LACTULOSE 20Gm/30ML SOLN PO SCH ×2 (06:00)
[2017-04-12] MEDS: PIPERACILLIN-TAZOB 3.375GM 100 ML IV SCH ×4 (06:00→17:27)
[2017-04-12] MEDS: FREE WATER GT SCH ×5 (06:19→23:21)
[2017-04-12] MEDS: ACCU-CHEK COMFORT CURVE STRIP VI SCH ×4 (06:20→17:27)
[2017-04-12] MEDS: InsuLIN REG 1unit/0.01ml Soln (100units/ml) SC SCH ×4 (06:20→17:27)
[2017-04-12] MEDS: LEVOTHYROXINE SODIUM 50 MCG TAB PO SCH (06:20)
[2017-04-12] MEDS: ALBUTEROL SULF 2.5 MG/0.5ML(0.5%) NEB SOLN NEB SCH ×4 (06:44→18:44)
[2017-04-12] MEDS: IPRATROPIUM BROM 0.5 MG/2.5ML INH SOL NEB SCH ×4 (06:44→18:44)
[2017-04-12 08:14] LABS: Allen Test Yes; Base Excess 6.6 mmol/L (-2.0-2.0); Blood 02Sat 91.8 % (96-100); Blood COHb 1.1 % (0.5-1.5); Blood MetHb 0.1 % (0.0-1.5); HCO3 31.7 mmol/L (22-26.0); HHb 8.1 % (0.0-5.0); MODE VENT - A/C; O2Hb 90.7 % (94.0-97.0); PCO2 46.3 mmHg (35.0-45.0); PCO2(T) 46.3 mmHg (35.0-45.0); PO2 63.2 mmHg (80.0-100.0); PO2(T) 63.2 mmHg (80.0-100.0); Sample Type Arterial; Spont Vt 466; pH 7.453 (7.350-7.450)
[2017-04-12] MEDS: MIDAZOLAM DRIP 100 mg/100mL NS 100 ML IV SCH (08:52)
[2017-04-12] MEDS: SODIUM CHLOR 0.9% PF (SALINE LOCK) 10ML VIAL IV SCH ×2 (10:00→22:00)
[2017-04-12] MEDS: PANTOPRAZOLE SODIUM 40 MG/10 ML VIAL IV SCH (11:21)
[2017-04-12] MEDS: ENOXAPARIN SOD 150 MG/1 ML SYRINGE SC SCH ×2 (11:22→22:00)
[2017-04-12] MEDS: FLUCONAZOLE 200MG/100ML 100 ML IV SCH (11:22)
[2017-04-12] MEDS: INSULIN DETEMIR(LEVEMIR) 1unit/0.01ml Soln (100units/ml) SC SCH ×2 (11:33→22:00)
[2017-04-12] MEDS ORDERED: POTASSIUM CHL 10% (20 MEQ/15ML) ORAL SOLN GT ONE (12:00)
[2017-04-12] MEDS ORDERED: VANCOMYCIN PER PHARMACY 0 MG IV SCH (12:00)
[2017-04-12] MEDS: NOREPINEPHRINE BITARTRATE 250 ML IV SCH (15:00)
[2017-04-12] MEDS: VANCOMYCIN 1GM/250ML D5W 250 ML IV SCH ×2 (15:00→22:00)
[2017-04-13] VITALS (99 sets, daily range): BP systolic 84–124; BP diastolic 45–87
[2017-04-13] MEDS: PROPOFOL 100 ML IV SCH ×3 (00:15→22:15)
[2017-04-13] MEDS: ALBUTEROL SULF 2.5 MG/0.5ML(0.5%) NEB SOLN NEB SCH ×4 (00:20→18:22)
[2017-04-13] MEDS: IPRATROPIUM BROM 0.5 MG/2.5ML INH SOL NEB SCH ×4 (00:20→18:22)
[2017-04-13] MEDS: VANCOMYCIN 1GM/250ML D5W 250 ML IV SCH ×3 (06:00→22:00)
[2017-04-13] MEDS: ACCU-CHEK COMFORT CURVE STRIP VI SCH ×3 (06:00→18:26)
[2017-04-13] MEDS: InsuLIN REG 1unit/0.01ml Soln (100units/ml) SC SCH ×3 (06:00→18:26)
[2017-04-13] MEDS: PIPERACILLIN-TAZOB 3.375GM 100 ML IV SCH ×4 (06:00→18:31)
[2017-04-13] MEDS: FREE WATER GT SCH ×3 (06:00→18:31)
[2017-04-13 06:20] LABS: Basophils # (auto) 0 uL; Basophils % (auto) 0.4 % (0.0-2.0); Eosinophils # (auto) 0.3 uL; Eosinophils % (auto) 3.2 % (0.0-7.0); Hematocrit 45.6 % (41.0-53.0); Hemoglobin 15.1 g/dL (13.5-17.5); Lymphocytes # (auto) 0.9 uL; Lymphocytes % (auto) 10.5 % (10.0-50.0); Mean Corpuscular Hemoglobin 31.9 pg (28.0-32.0); Mean Corpuscular Hgb Conc. 33.1 g/dL (32.0-36.0); Mean Corpuscular Volume 96.5 fL (80.0-100.0); Monocytes # (auto) 0.9 uL; Monocytes % (auto) 10.9 % (0.0-12.0); Neutrophils # (auto) 6.5 uL; Platelet Count (auto) 252 10^3/uL (140-450); SUSPECT VIEW TRANSMISSION; White Blood Cell 8.6 10^3/uL (4.4-10.8)
[2017-04-13] MEDS: LEVOTHYROXINE SODIUM 50 MCG TAB PO SCH (06:31)
[2017-04-13 06:38] LABS: BUN/Creatinine Ratio 21.6; Calcium 8.6 mg/dL (8.5-10.1)
[2017-04-13 07:24] LABS: Allen Test Yes; Base Excess 8.7 mmol/L (-2.0-2.0); Blood 02Sat 89.3 % (96-100); Blood COHb 0.3 % (0.5-1.5); Blood MetHb 0.2 % (0.0-1.5); HCO3 33.6 mmol/L (22-26.0); HHb 10.6 % (0.0-5.0); MODE VENT - A/C; O2Hb 88.9 % (94.0-97.0); PCO2 46.4 mmHg (35.0-45.0); PCO2(T) 46.4 mmHg (35.0-45.0); PO2 54.9 mmHg (80.0-100.0); PO2(T) 54.9 mmHg (80.0-100.0); Sample Type Arterial; pH 7.478 (7.350-7.450)
[2017-04-13] MEDS: MIDAZOLAM DRIP 100 mg/100mL NS 100 ML IV SCH (08:52)
[2017-04-13] MEDS: SODIUM CHLOR 0.9% PF (SALINE LOCK) 10ML VIAL IV SCH ×2 (10:18→22:00)
[2017-04-13] MEDS: PANTOPRAZOLE SODIUM 40 MG/10 ML VIAL IV SCH (10:18)
[2017-04-13] MEDS: FLUCONAZOLE 200MG/100ML 100 ML IV SCH (10:18)
[2017-04-13] MEDS: ENOXAPARIN SOD 150 MG/1 ML SYRINGE SC SCH ×2 (10:18→22:00)
[2017-04-13] MEDS: INSULIN DETEMIR(LEVEMIR) 1unit/0.01ml Soln (100units/ml) SC SCH ×2 (11:12→22:00)
[2017-04-13] MEDS ORDERED: FUROSEMIDE 40 MG/4 ML VIAL ONE (12:23)
[2017-04-13] MEDS ORDERED: DEXTROSE (50%) 50ML SYRG IV PRN (12:30)
[2017-04-13] MEDS: NOREPINEPHRINE BITARTRATE 250 ML IV SCH ×2 (15:00→20:10)
[2017-04-13] MEDS: BUDESONIDE (INHALATION) 0.5 MG/2 ML NEB NEB SCH (18:22)
[2017-04-13] MEDS: FUROSEMIDE 40 MG/4 ML VIAL IV SCH (18:31)
[2017-04-14] VITALS (80 sets, daily range): BP systolic 97–142; BP diastolic 51–94
[2017-04-14] MEDS: IPRATROPIUM BROM 0.5 MG/2.5ML INH SOL NEB SCH ×5 (00:04→23:52)
[2017-04-14] MEDS: ALBUTEROL SULF 2.5 MG/0.5ML(0.5%) NEB SOLN NEB SCH ×5 (00:04→23:52)
[2017-04-14] MEDS: PROPOFOL 100 ML IV SCH ×8 (01:15→21:12)
[2017-04-14 04:51] LABS: BUN/Creatinine Ratio 21.6; Calcium 8.6 mg/dL (8.5-10.1); Potassium 4.1 mmol/L (3.5-5.1)
[2017-04-14 04:54] LABS: Bilirubin, Total 0.6 mg/dL (0.2-1.0); Total Protein 6.6 g/dL (6.4-8.2)
[2017-04-14] MEDS: BUDESONIDE (INHALATION) 0.5 MG/2 ML NEB NEB SCH ×2 (05:50→22:23)
[2017-04-14] MEDS: FREE WATER GT SCH ×4 (05:58→18:04)
[2017-04-14] MEDS: PIPERACILLIN-TAZOB 3.375GM 100 ML IV SCH ×4 (06:00→19:00)
[2017-04-14] MEDS: VANCOMYCIN 1GM/250ML D5W 250 ML IV SCH ×2 (06:00→18:00)
[2017-04-14] MEDS: InsuLIN REG 1unit/0.01ml Soln (100units/ml) SC SCH ×4 (06:00→18:11)
[2017-04-14] MEDS: ACCU-CHEK COMFORT CURVE STRIP VI SCH ×4 (06:00→18:04)
[2017-04-14] MEDS: LEVOTHYROXINE SODIUM 50 MCG TAB PO SCH (06:47)
[2017-04-14 08:51] LABS: Basophils # (auto) 0 uL; Basophils % (auto) 0.2 % (0.0-2.0); Eosinophils # (auto) 0.2 uL; Eosinophils % (auto) 2.9 % (0.0-7.0); Hematocrit 46.9 % (41.0-53.0); Hemoglobin 15.1 g/dL (13.5-17.5); Lymphocytes # (auto) 1.3 uL; Lymphocytes % (auto) 16.2 % (10.0-50.0); Mean Corpuscular Hemoglobin 31.7 pg (28.0-32.0); Mean Corpuscular Hgb Conc. 32.2 g/dL (32.0-36.0); Mean Corpuscular Volume 98.6 fL (80.0-100.0); Mean Platelet Volume 11.4 fL (7.4-10.4); Monocytes # (auto) 0.9 uL; Monocytes % (auto) 11.5 % (0.0-12.0); Neutrophils # (auto) 5.6 uL; Neutrophils % (auto) 69.2 % (37.0-80.0); Platelet Count (auto) 256 10^3/uL (140-450); Red Cell Distribution Width 16.7 % (11.6-16.0); SUSPECT VIEW TRANSMISSION
[2017-04-14] MEDS: MIDAZOLAM DRIP 100 mg/100mL NS 100 ML IV SCH (08:52)
[2017-04-14 09:17] LABS: Allen Test Modified; Base Excess 8.2 mmol/L (-2.0-2.0); Blood 02Sat 92.9 % (96-100); Blood COHb 0.5 % (0.5-1.5); Blood MetHb 0.3 % (0.0-1.5); HCO3 33.1 mmol/L (22-26.0); MODE VENT - A/C; O2Hb 92.2 % (94.0-97.0); PCO2 46.3 mmHg (35.0-45.0); PCO2(T) 46.3 mmHg (35.0-45.0); PO2 66.6 mmHg (80.0-100.0); PO2(T) 66.6 mmHg (80.0-100.0); Sample Type Arterial; pH 7.472 (7.350-7.450)
[2017-04-14] MEDS: FLUCONAZOLE 200MG/100ML 100 ML IV SCH (09:45)
[2017-04-14] MEDS: PANTOPRAZOLE SODIUM 40 MG/10 ML VIAL IV SCH (11:01)
[2017-04-14] MEDS: FUROSEMIDE 40 MG/4 ML VIAL IV SCH (11:01)
[2017-04-14] MEDS: SODIUM CHLOR 0.9% PF (SALINE LOCK) 10ML VIAL IV SCH ×2 (11:02→22:19)
[2017-04-14] MEDS: INSULIN DETEMIR(LEVEMIR) 1unit/0.01ml Soln (100units/ml) SC SCH ×2 (11:06→22:19)
[2017-04-14] MEDS: ENOXAPARIN SOD 150 MG/1 ML SYRINGE SC SCH ×2 (11:07→22:00)
[2017-04-15] VITALS (107 sets, daily range): BP systolic 95–167; BP diastolic 55–118
[2017-04-15] MEDS: PROPOFOL 100 ML IV SCH ×8 (00:30→20:15)
[2017-04-15] MEDS: VANCOMYCIN 1GM/250ML D5W 250 ML IV SCH ×3 (02:30→18:35)
[2017-04-15 04:22] LABS: Basophils # (auto) 0 uL; Basophils % (auto) 0.4 % (0.0-2.0); Eosinophils # (auto) 0.2 uL; Eosinophils % (auto) 2.8 % (0.0-7.0); Hematocrit 44.8 % (41.0-53.0); Hemoglobin 14.5 g/dL (13.5-17.5); Lymphocytes # (auto) 1.2 uL; Lymphocytes % (auto) 17.2 % (10.0-50.0); Mean Corpuscular Hemoglobin 31.8 pg (28.0-32.0); Mean Corpuscular Hgb Conc. 32.4 g/dL (32.0-36.0); Mean Corpuscular Volume 98.3 fL (80.0-100.0); Mean Platelet Volume 10.8 fL (7.4-10.4); Monocytes # (auto) 0.7 uL; Monocytes % (auto) 10.9 % (0.0-12.0); Neutrophils # (auto) 4.6 uL; Neutrophils % (auto) 68.7 % (37.0-80.0); Platelet Count (auto) 237 10^3/uL (140-450); Red Cell Distribution Width 16.8 % (11.6-16.0); SUSPECT VIEW TRANSMISSION; White Blood Cell 6.7 10^3/uL (4.4-10.8)
[2017-04-15 04:42] LABS: Calcium 8.4 mg/dL (8.5-10.1); Potassium 3.7 mmol/L (3.5-5.1)
[2017-04-15] MEDS: FREE WATER GT SCH ×3 (05:39→18:00)
[2017-04-15] MEDS: ACCU-CHEK COMFORT CURVE STRIP VI SCH ×4 (06:00→18:35)
[2017-04-15] MEDS: PIPERACILLIN-TAZOB 3.375GM 100 ML IV SCH ×4 (06:00→20:18)
[2017-04-15] MEDS: InsuLIN REG 1unit/0.01ml Soln (100units/ml) SC SCH ×4 (06:00→18:50)
[2017-04-15] MEDS: ALBUTEROL SULF 2.5 MG/0.5ML(0.5%) NEB SOLN NEB SCH ×3 (06:11→19:03)
[2017-04-15] MEDS: IPRATROPIUM BROM 0.5 MG/2.5ML INH SOL NEB SCH ×3 (06:11→19:03)
[2017-04-15] MEDS: BUDESONIDE (INHALATION) 0.5 MG/2 ML NEB NEB SCH ×2 (06:11→22:11)
[2017-04-15] MEDS: LEVOTHYROXINE SODIUM 50 MCG TAB PO SCH (07:00)
[2017-04-15 08:30] LABS: Allen Test Modified; Base Excess 10.2 mmol/L (-2.0-2.0); Blood 02Sat 92.3 % (96-100); Blood MetHb 0.3 % (0.0-1.5); HCO3 35.6 mmol/L (22-26.0); HHb 7.7 % (0.0-5.0); MODE VENT - A/C; PCO2 49.2 mmHg (35.0-45.0); PCO2(T) 49.2 mmHg (35.0-45.0); PO2 66.5 mmHg (80.0-100.0); PO2(T) 66.5 mmHg (80.0-100.0); Sample Type Arterial; pH 7.477 (7.350-7.450)
[2017-04-15] MEDS: MIDAZOLAM DRIP 100 mg/100mL NS 100 ML IV SCH (08:52)
[2017-04-15] MEDS: FLUCONAZOLE 200MG/100ML 100 ML IV SCH (09:01)
[2017-04-15] MEDS: ENOXAPARIN SOD 150 MG/1 ML SYRINGE SC SCH (10:00)
[2017-04-15] MEDS: PANTOPRAZOLE SODIUM 40 MG/10 ML VIAL IV SCH (10:42)
[2017-04-15] MEDS: SODIUM CHLOR 0.9% PF (SALINE LOCK) 10ML VIAL IV SCH ×2 (10:43→21:55)
[2017-04-15] MEDS: FUROSEMIDE 40 MG/4 ML VIAL IV SCH (10:43)
[2017-04-15] MEDS: INSULIN DETEMIR(LEVEMIR) 1unit/0.01ml Soln (100units/ml) SC SCH ×2 (11:04→21:41)
[2017-04-15] MEDS ORDERED: NITROGLYCERIN 0.4 MG SL TAB SL PRN (12:30)
[2017-04-15] MEDS ORDERED: ONDANSETRON HCL 4 MG/2 ML VIAL IV PRN (12:30)
[2017-04-15] MEDS ORDERED: PROPOFOL 100 ML IV ONE ×2 (13:25→15:33)
[2017-04-15] MEDS: NOREPINEPHRINE BITARTRATE 250 ML IV SCH (14:30)
[2017-04-15] MEDS: ENOXAPARIN SOD 120 MG/0.8 ML SYRINGE SC SCH (21:41)
[2017-04-15] MEDS: PRO-STAT 64 30ML GT SCH (21:41)
[2017-04-16] VITALS (104 sets, daily range): BP systolic 76–155; BP diastolic 39–102
[2017-04-16] MEDS: ALBUTEROL SULF 2.5 MG/0.5ML(0.5%) NEB SOLN NEB SCH ×4 (00:07→18:28)
[2017-04-16] MEDS: IPRATROPIUM BROM 0.5 MG/2.5ML INH SOL NEB SCH ×4 (00:07→18:28)
[2017-04-16] MEDS: PROPOFOL 100 ML IV SCH ×3 (02:00→09:35)
[2017-04-16] MEDS: VANCOMYCIN 1GM/250ML D5W 250 ML IV SCH ×3 (02:00→17:32)
[2017-04-16 04:18] LABS: Basophils # (auto) 0 uL; Basophils % (auto) 0.4 % (0.0-2.0); Eosinophils # (auto) 0 uL; Eosinophils % (auto) 0.5 % (0.0-7.0); Hematocrit 47.2 % (41.0-53.0); Hemoglobin 15.3 g/dL (13.5-17.5); Lymphocytes # (auto) 0.8 uL; Lymphocytes % (auto) 9.2 % (10.0-50.0); Mean Corpuscular Hemoglobin 31.6 pg (28.0-32.0); Mean Corpuscular Hgb Conc. 32.5 g/dL (32.0-36.0); Mean Corpuscular Volume 97.2 fL (80.0-100.0); Mean Platelet Volume 10.7 fL (7.4-10.4); Monocytes % (auto) 10.8 % (0.0-12.0); Neutrophils % (auto) 79.1 % (37.0-80.0); Platelet Count (auto) 286 10^3/uL (140-450); Red Cell Distribution Width 16.1 % (11.6-16.0); SUSPECT VIEW TRANSMISSION; White Blood Cell 8.9 10^3/uL (4.4-10.8)
[2017-04-16 04:39] LABS: Potassium 3.5 mmol/L (3.5-5.1)
[2017-04-16 04:47] LABS: Albumin 2.1 g/dL (3.4-5.0); BUN/Creatinine Ratio 16.1; Calcium 8.4 mg/dL (8.5-10.1)
[2017-04-16] MEDS: InsuLIN REG 1unit/0.01ml Soln (100units/ml) SC SCH ×4 (05:52→17:43)
[2017-04-16 05:53] LABS: Bilirubin, Total 0.8 mg/dL (0.2-1.0)
[2017-04-16] MEDS: FREE WATER GT SCH ×2 (06:00)
[2017-04-16] MEDS: PRO-STAT 64 30ML GT SCH ×3 (06:00→22:00)
[2017-04-16] MEDS: BUDESONIDE (INHALATION) 0.5 MG/2 ML NEB NEB SCH (06:04)
[2017-04-16] MEDS: ACCU-CHEK COMFORT CURVE STRIP VI SCH ×4 (06:07→17:43)
[2017-04-16] MEDS: LEVOTHYROXINE SODIUM 50 MCG TAB PO SCH (06:07)
[2017-04-16 06:15] LABS: Total Protein 6.5 g/dL (6.4-8.2)
[2017-04-16] MEDS: PIPERACILLIN-TAZOB 3.375GM 100 ML IV SCH ×4 (06:26→17:32)
[2017-04-16 07:24] LABS: Allen Test Modified; Base Excess 7.6 mmol/L (-2.0-2.0); Blood 02Sat 88.3 % (96-100); Blood COHb 0.8 % (0.5-1.5); Blood MetHb 0.3 % (0.0-1.5); HCO3 31.6 mmol/L (22-26.0); HHb 11.6 % (0.0-5.0); MODE VENT - A/C; O2Hb 87.3 % (94.0-97.0); PCO2 41.9 mmHg (35.0-45.0); PCO2(T) 41.9 mmHg (35.0-45.0); PO2 54.8 mmHg (80.0-100.0); PO2(T) 54.8 mmHg (80.0-100.0); Sample Type Arterial; pH 7.496 (7.350-7.450)
[2017-04-16] MEDS: MIDAZOLAM DRIP 100 mg/100mL NS 100 ML IV SCH (08:52)
[2017-04-16] MEDS: PANTOPRAZOLE SODIUM 40 MG/10 ML VIAL IV SCH (09:33)
[2017-04-16] MEDS: FUROSEMIDE 40 MG/4 ML VIAL IV SCH (09:34)
[2017-04-16] MEDS: SODIUM CHLOR 0.9% PF (SALINE LOCK) 10ML VIAL IV SCH ×2 (09:34→22:00)
[2017-04-16] MEDS: ENOXAPARIN SOD 120 MG/0.8 ML SYRINGE SC SCH ×2 (09:34→22:00)
[2017-04-16] MEDS: INSULIN DETEMIR(LEVEMIR) 1unit/0.01ml Soln (100units/ml) SC SCH ×2 (09:35→22:00)
[2017-04-16] MEDS ORDERED: LEVOTHYROXINE SODIUM 100 MCG/5 ML INJ IV ONE (11:30)
[2017-04-16] MEDS ORDERED: MORPHINE SULF INJ 2 MG/ML SYRINGE 1ML IV PRN (11:30)
[2017-04-16] MEDS ORDERED: HYDROmorphone HCL 2 MG/ML VL IV PRN (11:30)
[2017-04-16] MEDS ORDERED: HYDROcodone-ACET 5/325MG TAB PO PRN (11:30)
[2017-04-16] MEDS: FLUCONAZOLE 200MG/100ML 100 ML IV SCH (11:34)
[2017-04-16] MEDS: fentaNYL Drip 2500mCg/250mlNS 250 ML IV SCH (12:04)
[2017-04-16] MEDS ORDERED: POTASSIUM CHL 10% (20 MEQ/15ML) ORAL SOLN PO ONE (12:30)
[2017-04-16] MEDS ORDERED: FUROSEMIDE 40 MG/4 ML VIAL IV ONE (12:30)
[2017-04-16 14:01] LABS: Allen Test Modified; Base Excess 9.7 mmol/L (-2.0-2.0); Blood 02Sat 90.4 % (96-100); Blood COHb 0.5 % (0.5-1.5); Blood MetHb 0.2 % (0.0-1.5); HCO3 35.7 mmol/L (22-26.0); HHb 9.5 % (0.0-5.0); MODE VENT - PCV; O2Hb 89.8 % (94.0-97.0); PCO2 52.3 mmHg (35.0-45.0); PCO2(T) 52.3 mmHg (35.0-45.0); PO2 62.4 mmHg (80.0-100.0); PO2(T) 62.4 mmHg (80.0-100.0); Pressure Support 30; Sample Type Arterial; pH 7.452 (7.350-7.450)
[2017-04-16] MEDS ORDERED: NOREPINEPHRINE BITARTRATE 250 ML IV ONE (18:04)
[2017-04-16] MEDS: NOREPINEPHRINE BITARTRATE 250 ML IV SCH (18:15)
[2017-04-16 20:39] LABS: Allen Test Yes; Base Excess 7.4 mmol/L (-2.0-2.0); Blood 02Sat 82.5 % (96-100); Blood COHb 0.8 % (0.5-1.5); Blood MetHb 0.3 % (0.0-1.5); HHb 17.3 % (0.0-5.0); MODE VENT - PCV; O2Hb 81.6 % (94.0-97.0); PCO2 49.3 mmHg (35.0-45.0); PCO2(T) 49.3 mmHg (35.0-45.0); PO2 48.9 mmHg (80.0-100.0); PO2(T) 48.9 mmHg (80.0-100.0); Sample Type Arterial; pH 7.444 (7.350-7.450)
[2017-04-16 22:18] LABS: Allen Test Yes; Base Excess 9.9 mmol/L (-2.0-2.0); Blood 02Sat 90.2 % (96-100); Blood COHb 0.8 % (0.5-1.5); Blood MetHb 0.2 % (0.0-1.5); HCO3 33.8 mmol/L (22-26.0); HHb 9.7 % (0.0-5.0); MODE VENT - PCV; O2Hb 89.3 % (94.0-97.0); PCO2 42.1 mmHg (35.0-45.0); PCO2(T) 42.1 mmHg (35.0-45.0); PO2 55.6 mmHg (80.0-100.0); PO2(T) 55.6 mmHg (80.0-100.0); Sample Type Arterial; pH 7.523 (7.350-7.450)
[2017-04-17] VITALS (98 sets, daily range): BP systolic 36–139; BP diastolic 22–84
[2017-04-17] MEDS: IPRATROPIUM BROM 0.5 MG/2.5ML INH SOL NEB SCH ×4 (00:02→18:31)
[2017-04-17] MEDS: ALBUTEROL SULF 2.5 MG/0.5ML(0.5%) NEB SOLN NEB SCH ×4 (00:02→18:31)
[2017-04-17 00:12] LABS: Allen Test Yes; Base Excess 8.6 mmol/L (-2.0-2.0); Blood COHb 1.2 % (0.5-1.5); Blood MetHb 0.1 % (0.0-1.5); HCO3 33.1 mmol/L (22-26.0); HHb 6.9 % (0.0-5.0); MODE VENT - PCV; O2Hb 91.8 % (94.0-97.0); PCO2 44.3 mmHg (35.0-45.0); PCO2(T) 44.3 mmHg (35.0-45.0); PO2 66.8 mmHg (80.0-100.0); PO2(T) 66.8 mmHg (80.0-100.0); Sample Type Arterial; pH 7.491 (7.350-7.450)
[2017-04-17] MEDS: InsuLIN REG 1unit/0.01ml Soln (100units/ml) SC SCH ×4 (01:26→18:18)
[2017-04-17] MEDS: ACCU-CHEK COMFORT CURVE STRIP VI SCH ×4 (01:26→18:18)
[2017-04-17] MEDS: VANCOMYCIN 1GM/250ML D5W 250 ML IV SCH ×2 (02:00→09:34)
[2017-04-17 03:51] LABS: Basophils # (auto) 0 uL; Basophils % (auto) 0.5 % (0.0-2.0); Eosinophils # (auto) 0.3 uL; Eosinophils % (auto) 2.6 % (0.0-7.0); Hematocrit 47.2 % (41.0-53.0); Hemoglobin 15.2 g/dL (13.5-17.5); Lymphocytes # (auto) 1.8 uL; Lymphocytes % (auto) 18.5 % (10.0-50.0); Mean Corpuscular Hemoglobin 31.6 pg (28.0-32.0); Mean Corpuscular Hgb Conc. 32.2 g/dL (32.0-36.0); Mean Corpuscular Volume 98.4 fL (80.0-100.0); Mean Platelet Volume 10.9 fL (7.4-10.4); Monocytes # (auto) 0.9 uL; Monocytes % (auto) 8.7 % (0.0-12.0); Neutrophils # (auto) 6.9 uL; Neutrophils % (auto) 69.7 % (37.0-80.0); Platelet Count (auto) 401 10^3/uL (140-450); Red Cell Distribution Width 16.5 % (11.6-16.0)
[2017-04-17 04:03] LABS: INR 0.99 (0.9-1.15); Partial Thromboplastin Time 26.1 sec (22.64-33.71); Prothrombin Time 10.8 sec (9.37-12.3)
[2017-04-17 04:05] LABS: BUN/Creatinine Ratio 15.9; Calcium 8.5 mg/dL (8.5-10.1); Potassium 3.1 mmol/L (3.5-5.1)
[2017-04-17] MEDS: PRO-STAT 64 30ML GT SCH ×3 (06:00→22:25)
[2017-04-17] MEDS: PIPERACILLIN-TAZOB 3.375GM 100 ML IV SCH ×4 (06:00→17:29)
[2017-04-17] MEDS: LEVOTHYROXINE SODIUM 50 MCG TAB PO SCH (07:06)
[2017-04-17 07:26] LABS: Allen Test Yes; Base Excess 10.2 mmol/L (-2.0-2.0); Blood COHb 0.5 % (0.5-1.5); Blood MetHb 0.2 % (0.0-1.5); HCO3 34.1 mmol/L (22-26.0); MODE VENT - PCV; O2Hb 94.3 % (94.0-97.0); PCO2 42.6 mmHg (35.0-45.0); PCO2(T) 42.6 mmHg (35.0-45.0); PO2 76.1 mmHg (80.0-100.0); PO2(T) 76.1 mmHg (80.0-100.0); Sample Type Arterial; pH 7.521 (7.350-7.450)
[2017-04-17] MEDS: MIDAZOLAM DRIP 100 mg/100mL NS 100 ML IV SCH (08:52)
[2017-04-17] MEDS: PROPOFOL 100 ML IV SCH ×2 (08:58→12:04)
[2017-04-17] MEDS: SODIUM CHLOR 0.9% PF (SALINE LOCK) 10ML VIAL IV SCH ×2 (09:34→22:25)
[2017-04-17] MEDS: PANTOPRAZOLE SODIUM 40 MG/10 ML VIAL IV SCH (09:34)
[2017-04-17] MEDS: FUROSEMIDE 40 MG/4 ML VIAL IV SCH (10:00)
[2017-04-17] MEDS: ENOXAPARIN SOD 120 MG/0.8 ML SYRINGE SC SCH ×2 (10:00→22:27)
[2017-04-17] MEDS: INSULIN DETEMIR(LEVEMIR) 1unit/0.01ml Soln (100units/ml) SC SCH ×2 (10:23→22:26)
[2017-04-17] MEDS: FLUCONAZOLE 200MG/100ML 100 ML IV SCH (10:31)
[2017-04-17] MEDS ORDERED: POTASSIUM CHL 10% (20 MEQ/15ML) ORAL SOLN GT ONE (10:45)
[2017-04-17] MEDS ORDERED: POTASSIUM CHL 10% (20 MEQ/15ML) ORAL SOLN ONE ×3 (11:12→14:38)
[2017-04-17] MEDS: fentaNYL Drip 2500mCg/250mlNS 250 ML IV SCH (11:25)
[2017-04-17] MEDS ORDERED: FUROSEMIDE 40 MG/4 ML VIAL ONE (14:38)
[2017-04-17] MEDS ORDERED: FUROSEMIDE 40 MG/4 ML VIAL IV ONE (14:45)
[2017-04-17] MEDS ORDERED: POTASSIUM CHL 10% (20 MEQ/15ML) ORAL SOLN PO ONE (14:45)
[2017-04-17 15:02] LABS: Base Excess 7.2 mmol/L (-2.0-2.0); Blood 02Sat 64.1 % (96-100); Blood COHb 0.4 % (0.5-1.5); Blood MetHb 0.3 % (0.0-1.5); HCO3 31.8 mmol/L (22-26.0); HHb 35.6 % (0.0-5.0); MODE VENT - PCV; O2Hb 63.7 % (94.0-97.0); PCO2 44.6 mmHg (35.0-45.0); PCO2(T) 44.6 mmHg (35.0-45.0); PO2 < 35.0 mmHg (80.0-100.0); Sample Type Arterial; pH 7.471 (7.350-7.450)
[2017-04-17 16:53] LABS: Allen Test Yes; Base Excess 9.3 mmol/L (-2.0-2.0); Blood 02Sat 92.6 % (96-100); Blood COHb 0.3 % (0.5-1.5); Blood MetHb 0.3 % (0.0-1.5); HCO3 32.8 mmol/L (22-26.0); HHb 7.4 % (0.0-5.0); MODE VENT - PCV; PCO2 40.2 mmHg (35.0-45.0); PCO2(T) 40.2 mmHg (35.0-45.0); Sample Type Arterial
[2017-04-17] MEDS: NOREPINEPHRINE BITARTRATE 250 ML IV SCH (18:18)
[2017-04-17 21:43] LABS: BUN/Creatinine Ratio 14.4; Calcium 8.6 mg/dL (8.5-10.1); Magnesium 2.1 mg/dL (1.6-2.6); Potassium 3.4 mmol/L (3.5-5.1)
[2017-04-17 21:55] LABS: B-Type Natriuretic Peptide 139.09 pg/mL (0-100); Temperature: 23.4 C (20.0-25.0)
[2017-04-17] MEDS: LINEZOLID 600MG/300ML 300 ML IV SCH (22:25)
[2017-04-17 22:53] LABS: Allen Test Modified; Blood 02Sat 69.6 % (96-100); MODE VENT - PCV; Sample Type Venous; Venous Blood COHb 0.3 % (0.5-1.5); Venous Blood MetHb 0.2 % (0.0-1.5); Venous Blood O2Hb 69.3 % (94.0-97.0); Venous Blood PO2 37.2 mmHg (38.0-42.0); Venous Deoxyhemoglobin 30.2 % (0.0-5.0)
[2017-04-18] VITALS (93 sets, daily range): BP systolic 38–177; BP diastolic 25–112
[2017-04-18] MEDS: InsuLIN REG 1unit/0.01ml Soln (100units/ml) SC SCH ×4 (00:35→18:00)
[2017-04-18] MEDS: PIPERACILLIN-TAZOB 3.375GM 100 ML IV SCH ×4 (00:35→18:05)
[2017-04-18] MEDS: ACCU-CHEK COMFORT CURVE STRIP VI SCH ×4 (00:35→18:00)
[2017-04-18] MEDS: IPRATROPIUM BROM 0.5 MG/2.5ML INH SOL NEB SCH ×4 (00:40→18:14)
[2017-04-18] MEDS: ALBUTEROL SULF 2.5 MG/0.5ML(0.5%) NEB SOLN NEB SCH ×4 (00:40→18:14)
[2017-04-18 04:09] LABS: Basophils # (auto) 0 uL; Basophils % (auto) 0.5 % (0.0-2.0); Eosinophils # (auto) 0.3 uL; Eosinophils % (auto) 2.7 % (0.0-7.0); Hematocrit 45.6 % (41.0-53.0); Hemoglobin 14.7 g/dL (13.5-17.5); Lymphocytes # (auto) 1.3 uL; Lymphocytes % (auto) 13.3 % (10.0-50.0); Mean Corpuscular Hemoglobin 31.7 pg (28.0-32.0); Mean Corpuscular Hgb Conc. 32.3 g/dL (32.0-36.0); Mean Corpuscular Volume 98.1 fL (80.0-100.0); Mean Platelet Volume 10.1 fL (7.4-10.4); Monocytes # (auto) 0.9 uL; Monocytes % (auto) 9.3 % (0.0-12.0); Neutrophils # (auto) 7.2 uL; Neutrophils % (auto) 74.2 % (37.0-80.0); Platelet Count (auto) 397 10^3/uL (140-450); Red Cell Distribution Width 16.5 % (11.6-16.0); SUSPECT VIEW TRANSMISSION; White Blood Cell 9.7 10^3/uL (4.4-10.8)
[2017-04-18 04:31] LABS: Albumin 1.9 g/dL (3.4-5.0); Calcium 8.4 mg/dL (8.5-10.1); Potassium 3.2 mmol/L (3.5-5.1)
[2017-04-18 04:37] LABS: Bilirubin, Total 0.9 mg/dL (0.2-1.0); Total Protein 6.5 g/dL (6.4-8.2)
[2017-04-18] MEDS ORDERED: PHENYLEPHRINE IV 0 ML IV ONE (04:38)
[2017-04-18] MEDS: PRO-STAT 64 30ML GT SCH ×3 (06:00→22:00)
[2017-04-18] MEDS ORDERED: POTASSIUM CHL 20MEQ/100ML 100 ML IV ONE (06:15)
[2017-04-18] MEDS: LEVOTHYROXINE SODIUM 50 MCG TAB PO SCH (07:00)
[2017-04-18 08:24] LABS: Allen Test Modified; Base Excess 6.5 mmol/L (-2.0-2.0); Blood 02Sat 93.5 % (96-100); Blood COHb 0.3 % (0.5-1.5); Blood MetHb 0.4 % (0.0-1.5); HCO3 31.4 mmol/L (22-26.0); HHb 6.5 % (0.0-5.0); MODE VENT - SIMV; O2Hb 92.8 % (94.0-97.0); PCO2 44.8 mmHg (35.0-45.0); PCO2(T) 44.8 mmHg (35.0-45.0); PIP 33; PO2 70.4 mmHg (80.0-100.0); PO2(T) 70.4 mmHg (80.0-100.0); Sample Type Arterial; Spont Vt 668; pH 7.464 (7.350-7.450)
[2017-04-18] MEDS: SODIUM CHLOR 0.9% PF (SALINE LOCK) 10ML VIAL IV SCH ×2 (10:00→22:50)
[2017-04-18] MEDS: fentaNYL Drip 2500mCg/250mlNS 250 ML IV SCH ×2 (10:23→22:44)
[2017-04-18] MEDS: MIDAZOLAM DRIP 100 mg/100mL NS 100 ML IV SCH ×2 (10:24→22:45)
[2017-04-18] MEDS: FUROSEMIDE 40 MG/4 ML VIAL IV SCH (10:30)
[2017-04-18] MEDS: ENOXAPARIN SOD 120 MG/0.8 ML SYRINGE SC SCH ×2 (10:30→22:00)
[2017-04-18] MEDS: PANTOPRAZOLE SODIUM 40 MG/10 ML VIAL IV SCH (10:31)
[2017-04-18] MEDS: LINEZOLID 600MG/300ML 300 ML IV SCH ×2 (10:32→22:00)
[2017-04-18] MEDS: INSULIN DETEMIR(LEVEMIR) 1unit/0.01ml Soln (100units/ml) SC SCH ×2 (10:34→22:00)
[2017-04-18] MEDS ORDERED: POTASSIUM CHL 10% (20 MEQ/15ML) ORAL SOLN GT ONE (12:15)
[2017-04-18] MEDS ORDERED: FUROSEMIDE 40 MG/4 ML VIAL IV ONE (12:15)
[2017-04-18 17:18] LABS: Venous Blood PO2(T) 38.5 mmHg (38.0-42.0)
[2017-04-18] MEDS: NOREPINEPHRINE BITARTRATE 250 ML IV SCH (18:15)
[2017-04-18] MEDS ORDERED: MIDAZOLAM DRIP 100 mg/100mL NS 100 ML IV ONE (22:16)
[2017-04-19] VITALS (104 sets, daily range): BP systolic 39–156; BP diastolic 24–110
[2017-04-19] MEDS: ALBUTEROL SULF 2.5 MG/0.5ML(0.5%) NEB SOLN NEB SCH ×4 (00:14→18:40)
[2017-04-19] MEDS: IPRATROPIUM BROM 0.5 MG/2.5ML INH SOL NEB SCH ×4 (00:14→18:40)
[2017-04-19] MEDS: PROPOFOL 100 ML IV SCH ×2 (01:20→21:25)
[2017-04-19 04:06] LABS: BUN/Creatinine Ratio 20.8; Calcium 7.9 mg/dL (8.5-10.1); Magnesium 1.6 mg/dL (1.6-2.6); Potassium 3.3 mmol/L (3.5-5.1)
[2017-04-19] MEDS: PRO-STAT 64 30ML GT SCH ×3 (06:00→22:00)
[2017-04-19] MEDS: ACCU-CHEK COMFORT CURVE STRIP VI SCH ×4 (06:00→18:21)
[2017-04-19] MEDS: InsuLIN REG 1unit/0.01ml Soln (100units/ml) SC SCH ×4 (06:00→18:21)
[2017-04-19] MEDS: PIPERACILLIN-TAZOB 3.375GM 100 ML IV SCH ×5 (06:00→23:34)
[2017-04-19] MEDS: LEVOTHYROXINE SODIUM 50 MCG TAB PO SCH (06:55)
[2017-04-19 07:00] LABS: Base Excess 6.1 mmol/L (-2.0-2.0); Blood 02Sat 86.9 % (96-100); Blood COHb 0.7 % (0.5-1.5); Blood MetHb 0.5 % (0.0-1.5); HHb 12.9 % (0.0-5.0); MODE VENT - PCV; O2Hb 85.9 % (94.0-97.0); PCO2 62.6 mmHg (35.0-45.0); PCO2(T) 62.6 mmHg (35.0-45.0); PIP 35; PO2 58.8 mmHg (80.0-100.0); PO2(T) 58.8 mmHg (80.0-100.0); Sample Type Arterial; pH 7.353 (7.350-7.450)
[2017-04-19 09:03] LABS: MODE VENT - PCV; PIP 34; Sample Type Venous; Venous Blood COHb 0.9 % (0.5-1.5); Venous Blood MetHb 0.3 % (0.0-1.5); Venous Blood O2Hb 60.3 % (94.0-97.0); Venous Blood PO2 < 35.0 mmHg (38.0-42.0); Venous Deoxyhemoglobin 38.5 % (0.0-5.0)
[2017-04-19] MEDS: NOREPINEPHRINE BITARTRATE 250 ML IV SCH (10:00)
[2017-04-19] MEDS: SODIUM CHLOR 0.9% PF (SALINE LOCK) 10ML VIAL IV SCH ×2 (10:00→22:00)
[2017-04-19] MEDS: PANTOPRAZOLE SODIUM 40 MG/10 ML VIAL IV SCH (10:42)
[2017-04-19] MEDS: ENOXAPARIN SOD 120 MG/0.8 ML SYRINGE SC SCH ×2 (10:43→22:00)
[2017-04-19] MEDS: FUROSEMIDE 40 MG/4 ML VIAL IV SCH (10:43)
[2017-04-19] MEDS: INSULIN DETEMIR(LEVEMIR) 1unit/0.01ml Soln (100units/ml) SC SCH ×2 (10:59→22:10)
[2017-04-19] MEDS: LINEZOLID 600MG/300ML 300 ML IV SCH ×2 (11:29→22:00)
[2017-04-19] MEDS ORDERED: FUROSEMIDE 40 MG/4 ML VIAL IV ONE (12:45)
[2017-04-19] MEDS ORDERED: POTASSIUM CHL 10% (20 MEQ/15ML) ORAL SOLN GT ONE (12:45)
[2017-04-19] MEDS: MAGNESIUM SULFATE 1GM/100ML 100 ML IV SCH ×2 (13:00→14:30)
[2017-04-19 14:49] LABS: Allen Test Modified; Blood 02Sat 88.2 % (96-100); Blood COHb 1.1 % (0.5-1.5); Blood MetHb 0.3 % (0.0-1.5); HCO3 29.2 mmol/L (22-26.0); HHb 11.6 % (0.0-5.0); MODE VENT - PCV; PCO2 50.3 mmHg (35.0-45.0); PCO2(T) 51.4 mmHg (35.0-45.0); PIP 34; PO2 57.6 mmHg (80.0-100.0); PO2(T) 59.6 mmHg (80.0-100.0); Sample Type Arterial; pH 7.382 (7.350-7.450)
[2017-04-19] MEDS: LACTULOSE 20Gm/30ML SOLN PO SCH (18:21)
[2017-04-19] MEDS: MIDAZOLAM DRIP 100 mg/100mL NS 100 ML IV SCH (19:46)
[2017-04-20] VITALS (107 sets, daily range): BP systolic 65–300; BP diastolic 22–300
[2017-04-20] MEDS: ALBUTEROL SULF 2.5 MG/0.5ML(0.5%) NEB SOLN NEB SCH ×4 (00:14→18:18)
[2017-04-20] MEDS: IPRATROPIUM BROM 0.5 MG/2.5ML INH SOL NEB SCH ×4 (00:14→18:18)
[2017-04-20] MEDS: ACETAMINOPHEN 500 MG TAB PO PRN (00:31)
[2017-04-20 04:02] LABS: Basophils # (auto) 0 uL; Basophils % (auto) 0.4 % (0.0-2.0); Eosinophils # (auto) 0.2 uL; Eosinophils % (auto) 2.2 % (0.0-7.0); Hematocrit 44.4 % (41.0-53.0); Hemoglobin 14.3 g/dL (13.5-17.5); Lymphocytes % (auto) 11.2 % (10.0-50.0); Mean Corpuscular Hemoglobin 31.4 pg (28.0-32.0); Mean Corpuscular Hgb Conc. 32.3 g/dL (32.0-36.0); Mean Corpuscular Volume 97.3 fL (80.0-100.0); Mean Platelet Volume 10.2 fL (7.4-10.4); Monocytes # (auto) 1.1 uL; Monocytes % (auto) 12.5 % (0.0-12.0); Neutrophils # (auto) 6.4 uL; Neutrophils % (auto) 73.7 % (37.0-80.0); Platelet Count (auto) 365 10^3/uL (140-450); Red Cell Distribution Width 16.3 % (11.6-16.0); SUSPECT VIEW TRANSMISSION; White Blood Cell 8.8 10^3/uL (4.4-10.8)
[2017-04-20 04:15] LABS: Albumin 1.9 g/dL (3.4-5.0); BUN/Creatinine Ratio 23.4; Bilirubin, Total 0.9 mg/dL (0.2-1.0); Calcium 8.8 mg/dL (8.5-10.1); Potassium 3.6 mmol/L (3.5-5.1); Total Protein 6.5 g/dL (6.4-8.2)
[2017-04-20] MEDS: fentaNYL Drip 2500mCg/250mlNS 250 ML IV SCH ×2 (04:15→20:40)
[2017-04-20] MEDS: LACTULOSE 20Gm/30ML SOLN PO SCH ×4 (05:36→18:20)
[2017-04-20] MEDS: LEVOTHYROXINE SODIUM 50 MCG TAB PO SCH (05:37)
[2017-04-20] MEDS: PRO-STAT 64 30ML GT SCH ×3 (05:38→22:00)
[2017-04-20] MEDS: InsuLIN REG 1unit/0.01ml Soln (100units/ml) SC SCH ×4 (05:38→18:25)
[2017-04-20] MEDS: ACCU-CHEK COMFORT CURVE STRIP VI SCH ×4 (05:38→18:20)
[2017-04-20] MEDS: PIPERACILLIN-TAZOB 3.375GM 100 ML IV SCH ×3 (06:26→18:20)
[2017-04-20 07:19] LABS: Allen Test Yes; Base Excess 9.1 mmol/L (-2.0-2.0); Blood 02Sat 87.7 % (96-100); Blood COHb 0.7 % (0.5-1.5); Blood MetHb 0.2 % (0.0-1.5); HCO3 33.6 mmol/L (22-26.0); HHb 12.2 % (0.0-5.0); MODE VENT - PCV; O2Hb 86.9 % (94.0-97.0); PCO2 44.7 mmHg (35.0-45.0); PCO2(T) 44.7 mmHg (35.0-45.0); PIP 36; PO2 51.2 mmHg (80.0-100.0); PO2(T) 51.2 mmHg (80.0-100.0); Sample Type Arterial; Spont Vt 610; pH 7.494 (7.350-7.450)
[2017-04-20] MEDS: PANTOPRAZOLE SODIUM 40 MG/10 ML VIAL IV SCH (10:00)
[2017-04-20] MEDS: FUROSEMIDE 40 MG/4 ML VIAL IV SCH (10:00)
[2017-04-20] MEDS: INSULIN DETEMIR(LEVEMIR) 1unit/0.01ml Soln (100units/ml) SC SCH ×2 (10:00→22:00)
[2017-04-20] MEDS: SODIUM CHLOR 0.9% PF (SALINE LOCK) 10ML VIAL IV SCH ×2 (10:00→22:00)
[2017-04-20] MEDS: LINEZOLID 600MG/300ML 300 ML IV SCH ×2 (10:00→22:00)
[2017-04-20] MEDS: ENOXAPARIN SOD 120 MG/0.8 ML SYRINGE SC SCH ×2 (10:00→22:00)
[2017-04-20] MEDS: ALBUMIN 25% 50 ML IV SCH ×2 (13:48→22:00)
[2017-04-20 13:56] LABS: Allen Test Yes; Base Excess 8.8 mmol/L (-2.0-2.0); Blood COHb 0.9 % (0.5-1.5); Blood MetHb 0.2 % (0.0-1.5); HCO3 33.3 mmol/L (22-26.0); HHb 9.9 % (0.0-5.0); MODE VENT - PCV; PCO2 44.5 mmHg (35.0-45.0); PCO2(T) 44.5 mmHg (35.0-45.0); PO2 56.8 mmHg (80.0-100.0); PO2(T) 56.8 mmHg (80.0-100.0); Sample Type Arterial; pH 7.492 (7.350-7.450)
[2017-04-20] MEDS: FUROSEMIDE INJECTION 250 MG in SODIUM CHL 0.9% 225 ML IV SCH (14:30)
[2017-04-20] MEDS: PROPOFOL 100 ML IV SCH (17:30)
[2017-04-20] MEDS: NOREPINEPHRINE BITARTRATE 250 ML IV SCH (18:15)
[2017-04-21] VITALS (101 sets, daily range): BP systolic 94–121; BP diastolic 51–73
[2017-04-21] MEDS: InsuLIN REG 1unit/0.01ml Soln (100units/ml) SC SCH ×4 (00:01→17:27)
[2017-04-21] MEDS: LACTULOSE 20Gm/30ML SOLN PO SCH ×4 (00:01→17:28)
[2017-04-21] MEDS: PIPERACILLIN-TAZOB 3.375GM 100 ML IV SCH ×4 (00:01→17:27)
[2017-04-21] MEDS: ACCU-CHEK COMFORT CURVE STRIP VI SCH ×4 (00:01→17:27)
[2017-04-21] MEDS: IPRATROPIUM BROM 0.5 MG/2.5ML INH SOL NEB SCH ×4 (00:09→18:09)
[2017-04-21] MEDS: ALBUTEROL SULF 2.5 MG/0.5ML(0.5%) NEB SOLN NEB SCH ×4 (00:09→18:09)
[2017-04-21 03:52] LABS: Calcium 8.8 mg/dL (8.5-10.1); Magnesium 2.1 mg/dL (1.6-2.6); Potassium 3.2 mmol/L (3.5-5.1)
[2017-04-21 03:55] LABS: BUN/Creatinine Ratio 23.7
[2017-04-21] MEDS: MIDAZOLAM DRIP 100 mg/100mL NS 100 ML IV SCH (04:00)
[2017-04-21] MEDS: POTASSIUM CHL 20MEQ/100ML 100 ML IV SCH ×2 (05:30→08:00)
[2017-04-21] MEDS: PRO-STAT 64 30ML GT SCH ×3 (05:40→21:46)
[2017-04-21] MEDS: ALBUMIN 25% 50 ML IV SCH ×3 (05:41→21:46)
[2017-04-21 06:42] LABS: Allen Test Modified; Base Excess 7.9 mmol/L (-2.0-2.0); Blood 02Sat 88.4 % (96-100); Blood COHb 0.8 % (0.5-1.5); Blood MetHb 0.3 % (0.0-1.5); HCO3 32.9 mmol/L (22-26.0); HHb 11.5 % (0.0-5.0); MODE VENT - PCV; O2Hb 87.4 % (94.0-97.0); PCO2 46.8 mmHg (35.0-45.0); PCO2(T) 46.8 mmHg (35.0-45.0); PIP 38; PO2 56.1 mmHg (80.0-100.0); PO2(T) 56.1 mmHg (80.0-100.0); Sample Type Arterial; Spont Vt 612; pH 7.465 (7.350-7.450)
[2017-04-21] MEDS: LEVOTHYROXINE SODIUM 50 MCG TAB PO SCH (07:00)
[2017-04-21] MEDS: ENOXAPARIN SOD 120 MG/0.8 ML SYRINGE SC SCH ×2 (09:48→21:47)
[2017-04-21] MEDS: PANTOPRAZOLE SODIUM 40 MG/10 ML VIAL IV SCH (09:48)
[2017-04-21] MEDS: LINEZOLID 600MG/300ML 300 ML IV SCH ×2 (09:49→21:46)
[2017-04-21] MEDS: SODIUM CHLOR 0.9% PF (SALINE LOCK) 10ML VIAL IV SCH ×2 (09:49→21:46)
[2017-04-21] MEDS: INSULIN DETEMIR(LEVEMIR) 1unit/0.01ml Soln (100units/ml) SC SCH ×2 (10:00→21:46)
[2017-04-21] MEDS: PROPOFOL 100 ML IV SCH (13:35)
[2017-04-21] MEDS: FUROSEMIDE INJECTION 250 MG in SODIUM CHL 0.9% 225 ML IV SCH (14:05)
[2017-04-21] MEDS: NOREPINEPHRINE BITARTRATE 250 ML IV SCH (17:28)
[2017-04-22] VITALS (102 sets, daily range): BP systolic 94–164; BP diastolic 56–118
[2017-04-22] MEDS: PIPERACILLIN-TAZOB 3.375GM 100 ML IV SCH ×4 (00:08→18:23)
[2017-04-22] MEDS: ACCU-CHEK COMFORT CURVE STRIP VI SCH ×4 (00:09→18:24)
[2017-04-22] MEDS: InsuLIN REG 1unit/0.01ml Soln (100units/ml) SC SCH ×4 (00:17→18:24)
[2017-04-22 04:26] LABS: Basophils # (auto) 0 uL; Basophils % (auto) 0.6 % (0.0-2.0); Eosinophils # (auto) 0.2 uL; Hematocrit 43.8 % (41.0-53.0); Hemoglobin 14.2 g/dL (13.5-17.5); Lymphocytes # (auto) 1.1 uL; Mean Corpuscular Hemoglobin 31.9 pg (28.0-32.0); Mean Corpuscular Hgb Conc. 32.5 g/dL (32.0-36.0); Mean Corpuscular Volume 98.1 fL (80.0-100.0); Mean Platelet Volume 9.8 fL (7.4-10.4); Monocytes # (auto) 0.8 uL; Monocytes % (auto) 12.3 % (0.0-12.0); Neutrophils # (auto) 4.2 uL; Neutrophils % (auto) 67.1 % (37.0-80.0); Platelet Count (auto) 407 10^3/uL (140-450); Red Cell Distribution Width 16.1 % (11.6-16.0); SUSPECT VIEW TRANSMISSION; White Blood Cell 6.2 10^3/uL (4.4-10.8)
[2017-04-22 04:48] LABS: INR 1.05 (0.9-1.15); Prothrombin Time 11.4 sec (9.37-12.3)
[2017-04-22 04:49] LABS: Albumin 2.5 g/dL (3.4-5.0); BUN/Creatinine Ratio 23.3; Bilirubin, Total 0.8 mg/dL (0.2-1.0); Calcium 8.8 mg/dL (8.5-10.1); Magnesium 1.9 mg/dL (1.6-2.6); Total Protein 6.9 g/dL (6.4-8.2)
[2017-04-22 05:06] LABS: Potassium 2.8 mmol/L (3.5-5.1)
[2017-04-22] MEDS: POTASSIUM CHL 20MEQ/100ML 100 ML IV SCH ×3 (05:30→09:00)
[2017-04-22] MEDS: PRO-STAT 64 30ML GT SCH ×3 (05:38→22:00)
[2017-04-22] MEDS: ALBUTEROL SULF 2.5 MG/0.5ML(0.5%) NEB SOLN NEB SCH ×4 (05:55→18:22)
[2017-04-22] MEDS: IPRATROPIUM BROM 0.5 MG/2.5ML INH SOL NEB SCH ×4 (05:55→18:22)
[2017-04-22] MEDS: LACTULOSE 20Gm/30ML SOLN PO SCH ×4 (06:29→17:51)
[2017-04-22] MEDS: ALBUMIN 25% 50 ML IV SCH ×3 (06:29→22:00)
[2017-04-22] MEDS: LEVOTHYROXINE SODIUM 50 MCG TAB PO SCH (06:30)
[2017-04-22] MEDS: MIDAZOLAM DRIP 100 mg/100mL NS 100 ML IV SCH (06:33)
[2017-04-22 07:20] LABS: Base Excess 9.6 mmol/L (-2.0-2.0); Blood 02Sat 84.2 % (96-100); Blood COHb 0.7 % (0.5-1.5); Blood MetHb 0.2 % (0.0-1.5); HCO3 35.3 mmol/L (22-26.0); HHb 15.7 % (0.0-5.0); MODE VENT - PCV; O2Hb 83.4 % (94.0-97.0); PCO2 50.6 mmHg (35.0-45.0); PCO2(T) 50.6 mmHg (35.0-45.0); PIP 24; PO2 50.4 mmHg (80.0-100.0); PO2(T) 50.4 mmHg (80.0-100.0); Sample Type Arterial; Spont Vt 677; pH 7.461 (7.350-7.450)
[2017-04-22] MEDS: fentaNYL Drip 2500mCg/250mlNS 250 ML IV SCH (08:00)
[2017-04-22] MEDS: PROPOFOL 100 ML IV SCH (09:40)
[2017-04-22] MEDS: PANTOPRAZOLE SODIUM 40 MG/10 ML VIAL IV SCH (11:30)
[2017-04-22] MEDS: ENOXAPARIN SOD 120 MG/0.8 ML SYRINGE SC SCH ×2 (11:30→22:00)
[2017-04-22] MEDS: SODIUM CHLOR 0.9% PF (SALINE LOCK) 10ML VIAL IV SCH ×2 (11:30→22:00)
[2017-04-22] MEDS: INSULIN DETEMIR(LEVEMIR) 1unit/0.01ml Soln (100units/ml) SC SCH ×2 (11:30→22:00)
[2017-04-22] MEDS: FUROSEMIDE INJECTION 250 MG in SODIUM CHL 0.9% 225 ML IV SCH (13:50)
[2017-04-22] MEDS: NOREPINEPHRINE BITARTRATE 250 ML IV SCH (18:15)
[2017-04-23] VITALS (107 sets, daily range): BP systolic 95–157; BP diastolic 51–98
[2017-04-23] MEDS: IPRATROPIUM BROM 0.5 MG/2.5ML INH SOL NEB SCH ×5 (00:13→23:54)
[2017-04-23] MEDS: ALBUTEROL SULF 2.5 MG/0.5ML(0.5%) NEB SOLN NEB SCH ×5 (00:13→23:54)
[2017-04-23 04:24] LABS: BUN/Creatinine Ratio 22.3; Calcium 9.1 mg/dL (8.5-10.1); Magnesium 1.8 mg/dL (1.6-2.6)
[2017-04-23 04:33] LABS: Potassium 2.8 mmol/L (3.5-5.1)
[2017-04-23] MEDS: PRO-STAT 64 30ML GT SCH ×3 (05:38→22:16)
[2017-04-23] MEDS: PROPOFOL 100 ML IV SCH (05:38)
[2017-04-23] MEDS: LEVOTHYROXINE SODIUM 50 MCG TAB PO SCH (05:39)
[2017-04-23] MEDS: LACTULOSE 20Gm/30ML SOLN PO SCH ×4 (05:39→18:00)
[2017-04-23] MEDS: InsuLIN REG 1unit/0.01ml Soln (100units/ml) SC SCH ×4 (05:39→18:32)
[2017-04-23] MEDS: PIPERACILLIN-TAZOB 3.375GM 100 ML IV SCH ×4 (05:39→18:32)
[2017-04-23] MEDS: ACCU-CHEK COMFORT CURVE STRIP VI SCH ×4 (05:39→18:26)
[2017-04-23] MEDS: ALBUMIN 25% 50 ML IV SCH ×3 (05:39→22:53)
[2017-04-23] MEDS: POTASSIUM CHL 20MEQ/100ML 100 ML IV SCH ×4 (05:46→12:00)
[2017-04-23 08:40] LABS: Allen Test Modified; Base Excess 8.1 mmol/L (-2.0-2.0); Blood 02Sat 87.7 % (96-100); Blood COHb 0.5 % (0.5-1.5); Blood MetHb 0.1 % (0.0-1.5); HCO3 32.3 mmol/L (22-26.0); HHb 12.2 % (0.0-5.0); MODE VENT - PCV; O2Hb 87.2 % (94.0-97.0); PO2 54.3 mmHg (80.0-100.0); PO2(T) 54.3 mmHg (80.0-100.0); Sample Type Arterial; pH 7.494 (7.350-7.450)
[2017-04-23] MEDS: INSULIN DETEMIR(LEVEMIR) 1unit/0.01ml Soln (100units/ml) SC SCH ×2 (10:00→22:17)
[2017-04-23] MEDS: PANTOPRAZOLE SODIUM 40 MG/10 ML VIAL IV SCH (10:20)
[2017-04-23] MEDS: SODIUM CHLOR 0.9% PF (SALINE LOCK) 10ML VIAL IV SCH ×2 (10:21→22:15)
[2017-04-23] MEDS: ENOXAPARIN SOD 120 MG/0.8 ML SYRINGE SC SCH ×2 (10:21→22:15)
[2017-04-23] MEDS ORDERED: HYDROcodone-ACET 5/325MG TAB PO PRN (14:00)
[2017-04-23] MEDS ORDERED: MORPHINE SULF INJ 2 MG/ML SYRINGE 1ML IV PRN (14:00)
[2017-04-23] MEDS ORDERED: HYDROmorphone HCL 2 MG/ML VL IV PRN (14:00)
[2017-04-23] MEDS ORDERED: fentaNYL Drip 2500mCg/250mlNS 250 ML IV ONE (14:37)
[2017-04-23] MEDS: FUROSEMIDE INJECTION 250 MG in SODIUM CHL 0.9% 225 ML IV SCH (14:51)
[2017-04-23] MEDS: MAGNESIUM SULFATE 1GM/100ML 100 ML IV SCH ×2 (15:04→16:16)
[2017-04-23] MEDS: MIDAZOLAM DRIP 100 mg/100mL NS 100 ML IV SCH (16:16)
[2017-04-23] MEDS: NOREPINEPHRINE BITARTRATE 250 ML IV SCH (18:15)
[2017-04-24] VITALS (101 sets, daily range): BP systolic 87–142; BP diastolic 52–91
[2017-04-24] MEDS: PIPERACILLIN-TAZOB 3.375GM 100 ML IV SCH ×5 (00:02→23:59)
[2017-04-24] MEDS: PROPOFOL 100 ML IV SCH ×2 (01:50→21:55)
[2017-04-24 03:09] LABS: Basophils # (auto) 0 uL; Basophils % (auto) 0.4 % (0.0-2.0); Eosinophils # (auto) 0.2 uL; Eosinophils % (auto) 2.8 % (0.0-7.0); Hematocrit 43.7 % (41.0-53.0); Hemoglobin 14.4 g/dL (13.5-17.5); Lymphocytes # (auto) 1.1 uL; Lymphocytes % (auto) 17.2 % (10.0-50.0); Mean Corpuscular Hemoglobin 31.9 pg (28.0-32.0); Mean Corpuscular Volume 96.5 fL (80.0-100.0); Monocytes # (auto) 0.7 uL; Monocytes % (auto) 10.3 % (0.0-12.0); Neutrophils # (auto) 4.5 uL; Neutrophils % (auto) 69.3 % (37.0-80.0); Platelet Count (auto) 398 10^3/uL (140-450); Red Cell Distribution Width 15.9 % (11.6-16.0); White Blood Cell 6.5 10^3/uL (4.4-10.8)
[2017-04-24 03:24] LABS: Allen Test Modified; Base Excess 10.1 mmol/L (-2.0-2.0); Blood 02Sat 86.6 % (96-100); Blood COHb 0.7 % (0.5-1.5); Blood MetHb 0.3 % (0.0-1.5); HCO3 34.7 mmol/L (22-26.0); HHb 13.3 % (0.0-5.0); MODE VENT - PCV; O2Hb 85.7 % (94.0-97.0); PCO2 45.9 mmHg (35.0-45.0); PCO2(T) 45.9 mmHg (35.0-45.0); PIP 32; Sample Type Arterial; Spont Vt 721; pH 7.497 (7.350-7.450)
[2017-04-24 03:28] LABS: Albumin 2.9 g/dL (3.4-5.0); BUN/Creatinine Ratio 22.4; Magnesium 2.1 mg/dL (1.6-2.6); Potassium 3.3 mmol/L (3.5-5.1)
[2017-04-24 03:31] LABS: Bilirubin, Total 0.8 mg/dL (0.2-1.0); Total Protein 7.2 g/dL (6.4-8.2)
[2017-04-24] MEDS ORDERED: POTASSIUM CHL 20MEQ/100ML 100 ML IV ONE (04:15)
[2017-04-24] MEDS: MIDAZOLAM DRIP 100 mg/100mL NS 100 ML IV SCH (04:20)
[2017-04-24] MEDS: fentaNYL Drip 2500mCg/250mlNS 250 ML IV SCH ×2 (05:41→21:24)
[2017-04-24] MEDS: ACCU-CHEK COMFORT CURVE STRIP VI SCH ×4 (05:51→17:56)
[2017-04-24] MEDS: IPRATROPIUM BROM 0.5 MG/2.5ML INH SOL NEB SCH ×3 (05:57→18:11)
[2017-04-24] MEDS: ALBUTEROL SULF 2.5 MG/0.5ML(0.5%) NEB SOLN NEB SCH ×3 (05:57→18:11)
[2017-04-24] MEDS: LACTULOSE 20Gm/30ML SOLN PO SCH ×4 (06:00→17:01)
[2017-04-24] MEDS: PRO-STAT 64 30ML GT SCH ×3 (06:03→21:53)
[2017-04-24] MEDS: InsuLIN REG 1unit/0.01ml Soln (100units/ml) SC SCH ×4 (06:03→17:56)
[2017-04-24] MEDS: ALBUMIN 25% 50 ML IV SCH ×3 (06:40→21:52)
[2017-04-24] MEDS: ENOXAPARIN SOD 120 MG/0.8 ML SYRINGE SC SCH ×2 (10:03→22:50)
[2017-04-24] MEDS: LEVOTHYROXINE SODIUM 50 MCG TAB PO SCH (10:04)
[2017-04-24] MEDS: PANTOPRAZOLE SODIUM 40 MG/10 ML VIAL IV SCH (10:04)
[2017-04-24] MEDS: SODIUM CHLOR 0.9% PF (SALINE LOCK) 10ML VIAL IV SCH ×2 (10:04→21:52)
[2017-04-24] MEDS: INSULIN DETEMIR(LEVEMIR) 1unit/0.01ml Soln (100units/ml) SC SCH ×2 (10:05→21:59)
[2017-04-24] MEDS: FUROSEMIDE INJECTION 250 MG in SODIUM CHL 0.9% 225 ML IV SCH (13:58)
[2017-04-24] MEDS ORDERED: ACETAMINOPHEN 500 MG TAB PO PRN (15:15)
[2017-04-24] MEDS ORDERED: BUMETANIDE (0.25MG/ML) 4 ML VIAL IV ONE (15:15)
[2017-04-24] MEDS ORDERED: POTASSIUM CHL 10% (20 MEQ/15ML) ORAL SOLN GT ONE (15:15)
[2017-04-24] MEDS ORDERED: ENOXAPARIN SOD 120 MG/0.8 ML SYRINGE SC ONE (15:15)
[2017-04-24] MEDS: FREE WATER GT SCH (16:04)
[2017-04-24] MEDS: NOREPINEPHRINE BITARTRATE 250 ML IV SCH (18:15)
[2017-04-24 22:05] LABS: Allen Test Modified; Base Excess 7.5 mmol/L (-2.0-2.0); Blood 02Sat 84.7 % (96-100); Blood COHb 1.1 % (0.5-1.5); Blood MetHb 0.3 % (0.0-1.5); HCO3 32.2 mmol/L (22-26.0); HHb 15.1 % (0.0-5.0); MODE VENT - PCV; O2Hb 83.5 % (94.0-97.0); PCO2 44.5 mmHg (35.0-45.0); PCO2(T) 44.5 mmHg (35.0-45.0); PIP 32; PO2 51.6 mmHg (80.0-100.0); PO2(T) 51.6 mmHg (80.0-100.0); Sample Type Arterial; Spont Vt 664; pH 7.477 (7.350-7.450)
[2017-04-25] VITALS (105 sets, daily range): BP systolic 82–135; BP diastolic 44–82
[2017-04-25] MEDS: ACCU-CHEK COMFORT CURVE STRIP VI SCH ×4 (00:09→18:18)
[2017-04-25] MEDS: InsuLIN REG 1unit/0.01ml Soln (100units/ml) SC SCH ×4 (00:09→18:18)
[2017-04-25 00:23] LABS: Allen Test Modified; Base Excess 9.9 mmol/L (-2.0-2.0); Blood 02Sat 86.8 % (96-100); Blood COHb 0.9 % (0.5-1.5); Blood MetHb 0.2 % (0.0-1.5); HCO3 33.9 mmol/L (22-26.0); HHb 13.1 % (0.0-5.0); MODE VENT - PCV; O2Hb 85.8 % (94.0-97.0); PCO2 42.7 mmHg (35.0-45.0); PCO2(T) 42.7 mmHg (35.0-45.0); PIP 37; PO2 52.5 mmHg (80.0-100.0); PO2(T) 52.5 mmHg (80.0-100.0); Sample Type Arterial; Spont Vt 757; pH 7.518 (7.350-7.450)
[2017-04-25] MEDS: MIDAZOLAM DRIP 100 mg/100mL NS 100 ML IV SCH (04:20)
[2017-04-25 04:22] LABS: BUN/Creatinine Ratio 21.7; Calcium 9.9 mg/dL (8.5-10.1); Magnesium 2.3 mg/dL (1.6-2.6); Potassium 3.5 mmol/L (3.5-5.1)
[2017-04-25] MEDS: LACTULOSE 20Gm/30ML SOLN PO SCH ×4 (06:00→18:00)
[2017-04-25] MEDS: PIPERACILLIN-TAZOB 3.375GM 100 ML IV SCH (06:08)
[2017-04-25] MEDS: FREE WATER GT SCH ×4 (06:09→18:18)
[2017-04-25] MEDS: ALBUMIN 25% 50 ML IV SCH (06:09)
[2017-04-25] MEDS: PRO-STAT 64 30ML GT SCH ×3 (06:09→22:00)
[2017-04-25] MEDS: IPRATROPIUM BROM 0.5 MG/2.5ML INH SOL NEB SCH ×4 (06:11→18:42)
[2017-04-25] MEDS: ALBUTEROL SULF 2.5 MG/0.5ML(0.5%) NEB SOLN NEB SCH ×4 (06:12→18:42)
[2017-04-25] MEDS: LEVOTHYROXINE SODIUM 50 MCG TAB PO SCH (06:19)
[2017-04-25 07:49] LABS: Allen Test Modified; Blood 02Sat 86.3 % (96-100); Blood COHb 0.6 % (0.5-1.5); Blood MetHb 0.3 % (0.0-1.5); HCO3 26.1 mmol/L (22-26.0); HHb 13.6 % (0.0-5.0); MODE VENT - PCV; O2Hb 85.5 % (94.0-97.0); PCO2 26.5 mmHg (35.0-45.0); PCO2(T) 27.1 mmHg (35.0-45.0); PIP 38; PO2 49.7 mmHg (80.0-100.0); PO2(T) 51.5 mmHg (80.0-100.0); Sample Type Arterial; Spont Vt 864; pH 7.611 (7.350-7.450)
[2017-04-25] MEDS: PANTOPRAZOLE SODIUM 40 MG/10 ML VIAL IV SCH (09:23)
[2017-04-25] MEDS: SODIUM CHLOR 0.9% PF (SALINE LOCK) 10ML VIAL IV SCH ×2 (09:23→22:09)
[2017-04-25] MEDS: ENOXAPARIN SOD 120 MG/0.8 ML SYRINGE SC SCH ×2 (09:24→22:10)
[2017-04-25] MEDS: INSULIN DETEMIR(LEVEMIR) 1unit/0.01ml Soln (100units/ml) SC SCH ×2 (10:11→22:00)
[2017-04-25 10:47] LABS: Allen Test Modified; Base Excess 3.7 mmol/L (-2.0-2.0); Blood 02Sat 89.5 % (96-100); Blood COHb 0.7 % (0.5-1.5); Blood MetHb 0.2 % (0.0-1.5); HHb 10.4 % (0.0-5.0); MODE VENT - PCV; O2Hb 88.7 % (94.0-97.0); PCO2 32.7 mmHg (35.0-45.0); PCO2(T) 32.7 mmHg (35.0-45.0); PIP 38; PO2 57.3 mmHg (80.0-100.0); PO2(T) 57.3 mmHg (80.0-100.0); Sample Type Arterial; Spont Vt 838; pH 7.519 (7.350-7.450)
[2017-04-25] MEDS: SILDENAFIL CITRATE 20 MG TAB PO SCH ×2 (14:38→20:25)
[2017-04-25] MEDS: PROPOFOL 100 ML IV SCH (18:00)
[2017-04-25] MEDS: NOREPINEPHRINE BITARTRATE 250 ML IV SCH (18:15)
[2017-04-26] VITALS (104 sets, daily range): BP systolic 78–134; BP diastolic 55–93
[2017-04-26] MEDS: FREE WATER GT SCH ×4 (00:11→18:29)
[2017-04-26] MEDS: IPRATROPIUM BROM 0.5 MG/2.5ML INH SOL NEB SCH ×4 (00:15→19:06)
[2017-04-26] MEDS: ALBUTEROL SULF 2.5 MG/0.5ML(0.5%) NEB SOLN NEB SCH ×4 (00:15→19:06)
[2017-04-26] MEDS: InsuLIN REG 1unit/0.01ml Soln (100units/ml) SC SCH ×4 (00:28→18:30)
[2017-04-26] MEDS: ACCU-CHEK COMFORT CURVE STRIP VI SCH ×4 (00:28→18:30)
[2017-04-26 04:18] LABS: Basophils # (auto) 0 uL; Basophils % (auto) 0.5 % (0.0-2.0); CONDITION AutoValidated; Eosinophils # (auto) 0.2 uL; Eosinophils % (auto) 2.3 % (0.0-7.0); Hematocrit 45.3 % (41.0-53.0); Hemoglobin 14.8 g/dL (13.5-17.5); Lymphocytes # (auto) 1.1 uL; Lymphocytes % (auto) 11.9 % (10.0-50.0); Mean Corpuscular Hgb Conc. 32.7 g/dL (32.0-36.0); Mean Corpuscular Volume 97.8 fL (80.0-100.0); Mean Platelet Volume 9.7 fL (7.4-10.4); Monocytes % (auto) 11.4 % (0.0-12.0); Neutrophils # (auto) 6.7 uL; Neutrophils % (auto) 73.9 % (37.0-80.0); Platelet Count (auto) 385 10^3/uL (140-450); Red Cell Distribution Width 16.5 % (11.6-16.0); SUSPECT SEE PRINTOUT; White Blood Cell 9.1 10^3/uL (4.4-10.8)
[2017-04-26 04:32] LABS: Potassium 3.7 mmol/L (3.5-5.1)
[2017-04-26 04:39] LABS: Albumin 3.2 g/dL (3.4-5.0); BUN/Creatinine Ratio 32.4; Calcium 9.4 mg/dL (8.5-10.1)
[2017-04-26 04:41] LABS: Bilirubin, Total 0.7 mg/dL (0.2-1.0); Total Protein 6.8 g/dL (6.4-8.2)
[2017-04-26] MEDS: LACTULOSE 20Gm/30ML SOLN PO SCH ×3 (05:36→11:37)
[2017-04-26] MEDS: PRO-STAT 64 30ML GT SCH ×4 (06:00→22:00)
[2017-04-26] MEDS: LEVOTHYROXINE SODIUM 50 MCG TAB PO SCH (07:26)
[2017-04-26] MEDS: SILDENAFIL CITRATE 20 MG TAB PO SCH ×3 (10:06→20:05)
[2017-04-26] MEDS: LEVOFLOXACIN 500MG 100 ML IV SCH (10:06)
[2017-04-26] MEDS: ENOXAPARIN SOD 120 MG/0.8 ML SYRINGE SC SCH ×2 (10:06→21:57)
[2017-04-26] MEDS: SODIUM CHLOR 0.9% PF (SALINE LOCK) 10ML VIAL IV SCH ×2 (10:06→21:57)
[2017-04-26] MEDS: PANTOPRAZOLE SODIUM 40 MG/10 ML VIAL IV SCH (10:06)
[2017-04-26] MEDS: INSULIN DETEMIR(LEVEMIR) 1unit/0.01ml Soln (100units/ml) SC SCH ×2 (10:07→21:55)
[2017-04-26] MEDS: MIDAZOLAM DRIP 100 mg/100mL NS 100 ML IV SCH ×2 (12:18→21:45)
[2017-04-26] MEDS: PROPOFOL 100 ML IV SCH (15:43)
[2017-04-26] MEDS ORDERED: LEVOTHYROXINE SODIUM 100 MCG/5 ML INJ IV ONE (16:00)
[2017-04-26] MEDS ORDERED: DEXTROSE (50%) 50ML SYRG IV PRN (16:00)
[2017-04-26 16:03] LABS: Allen Test Modified; Base Excess 8.9 mmol/L (-2.0-2.0); Blood 02Sat 92.4 % (96-100); Blood MetHb 0.1 % (0.0-1.5); HCO3 32.6 mmol/L (22-26.0); HHb 7.5 % (0.0-5.0); MODE VENT - PCV; O2Hb 91.4 % (94.0-97.0); PCO2 40.7 mmHg (35.0-45.0); PCO2(T) 40.7 mmHg (35.0-45.0); Sample Type Arterial; pH 7.521 (7.350-7.450)
[2017-04-26] MEDS: fentaNYL Drip 2500mCg/250mlNS 250 ML IV SCH ×2 (19:15→19:50)
[2017-04-26] MEDS: NOREPINEPHRINE BITARTRATE 250 ML IV SCH (19:51)
[2017-04-27] VITALS (107 sets, daily range): BP systolic 89–132; BP diastolic 40–80
[2017-04-27] MEDS: IPRATROPIUM BROM 0.5 MG/2.5ML INH SOL NEB SCH ×4 (00:23→18:24)
[2017-04-27] MEDS: ALBUTEROL SULF 2.5 MG/0.5ML(0.5%) NEB SOLN NEB SCH ×4 (00:23→18:24)
[2017-04-27] MEDS: PRO-STAT 64 30ML GT SCH ×3 (06:00→22:15)
[2017-04-27] MEDS: InsuLIN REG 1unit/0.01ml Soln (100units/ml) SC SCH ×4 (06:00→18:33)
[2017-04-27] MEDS: FREE WATER GT SCH ×4 (06:22→17:34)
[2017-04-27] MEDS: ACCU-CHEK COMFORT CURVE STRIP VI SCH ×4 (06:22→17:34)
[2017-04-27] MEDS: LEVOTHYROXINE SODIUM 50 MCG TAB PO SCH (06:57)
[2017-04-27 08:51] LABS: Allen Test Yes; Blood 02Sat 86.4 % (96-100); Blood COHb 0.1 % (0.5-1.5); Blood MetHb 0.2 % (0.0-1.5); HCO3 33.4 mmol/L (22-26.0); HHb 13.6 % (0.0-5.0); MODE VENT - PCV; O2Hb 86.1 % (94.0-97.0); PCO2 40.1 mmHg (35.0-45.0); PCO2(T) 40.1 mmHg (35.0-45.0); PIP 22; Sample Type Arterial; pH 7.539 (7.350-7.450)
[2017-04-27] MEDS ORDERED: MIDAZOLAM DRIP 100 mg/100mL NS 100 ML IV SCH (08:52)
[2017-04-27] MEDS: MIDAZOLAM DRIP 100 mg/100mL NS 100 ML IV SCH ×3 (09:00→18:37)
[2017-04-27] MEDS: LEVOFLOXACIN 500MG 100 ML IV SCH (09:48)
[2017-04-27] MEDS: SODIUM CHLOR 0.9% PF (SALINE LOCK) 10ML VIAL IV SCH ×2 (09:49→22:16)
[2017-04-27] MEDS: ENOXAPARIN SOD 120 MG/0.8 ML SYRINGE SC SCH ×2 (09:49→22:15)
[2017-04-27] MEDS: PANTOPRAZOLE SODIUM 40 MG/10 ML VIAL IV SCH (09:49)
[2017-04-27] MEDS: INSULIN DETEMIR(LEVEMIR) 1unit/0.01ml Soln (100units/ml) SC SCH ×2 (09:58→22:00)
[2017-04-27] MEDS: SILDENAFIL CITRATE 20 MG TAB PO SCH ×3 (09:58→20:00)
[2017-04-27] MEDS: PROPOFOL 100 ML IV SCH (11:07)
[2017-04-27 13:18] LABS: Allen Test Yes; Base Excess 6.8 mmol/L (-2.0-2.0); HCO3 32.3 mmol/L (22-26.0); MODE VENT - PCV; PCO2 48.8 mmHg (35.0-45.0); PCO2(T) 48.8 mmHg (35.0-45.0); PIP 20; PO2 56.9 mmHg (80.0-100.0); PO2(T) 56.9 mmHg (80.0-100.0); Sample Type Arterial; pH 7.438 (7.350-7.450)
[2017-04-27] MEDS: NOREPINEPHRINE BITARTRATE 250 ML IV SCH (18:15)
[2017-04-28] VITALS (89 sets, daily range): BP systolic 91–139; BP diastolic 49–80
[2017-04-28] MEDS: IPRATROPIUM BROM 0.5 MG/2.5ML INH SOL NEB SCH ×4 (00:05→18:18)
[2017-04-28] MEDS: ALBUTEROL SULF 2.5 MG/0.5ML(0.5%) NEB SOLN NEB SCH ×4 (00:05→18:18)
[2017-04-28 04:40] LABS: Basophils # (auto) 0 uL; Basophils % (auto) 0.5 % (0.0-2.0); CONDITION AutoValidated; Eosinophils # (auto) 0.3 uL; Eosinophils % (auto) 3.9 % (0.0-7.0); Hematocrit 42.6 % (41.0-53.0); Hemoglobin 13.9 g/dL (13.5-17.5); Lymphocytes # (auto) 1.4 uL; Lymphocytes % (auto) 18.4 % (10.0-50.0); Mean Corpuscular Hgb Conc. 32.6 g/dL (32.0-36.0); Mean Corpuscular Volume 97.9 fL (80.0-100.0); Monocytes # (auto) 0.9 uL; Monocytes % (auto) 12.1 % (0.0-12.0); Neutrophils # (auto) 4.9 uL; Neutrophils % (auto) 65.1 % (37.0-80.0); Platelet Count (auto) 326 10^3/uL (140-450); Red Cell Distribution Width 16.5 % (11.6-16.0); White Blood Cell 7.5 10^3/uL (4.4-10.8)
[2017-04-28 05:00] LABS: Albumin 2.8 g/dL (3.4-5.0); Calcium 9.4 mg/dL (8.5-10.1); Potassium 3.3 mmol/L (3.5-5.1)
[2017-04-28 05:06] LABS: Bilirubin, Total 0.9 mg/dL (0.2-1.0); Total Protein 7.3 g/dL (6.4-8.2)
[2017-04-28] MEDS: InsuLIN REG 1unit/0.01ml Soln (100units/ml) SC SCH ×4 (06:00→17:46)
[2017-04-28] MEDS: PROPOFOL 100 ML IV SCH (06:15)
[2017-04-28] MEDS: PRO-STAT 64 30ML GT SCH ×3 (06:21→21:15)
[2017-04-28] MEDS: FREE WATER GT SCH ×4 (06:21→17:46)
[2017-04-28] MEDS: ACCU-CHEK COMFORT CURVE STRIP VI SCH ×4 (06:22→17:46)
[2017-04-28 06:42] LABS: Allen Test Yes; Base Excess 9.6 mmol/L (-2.0-2.0); Blood 02Sat 91.8 % (96-100); Blood COHb 0.6 % (0.5-1.5); HCO3 35.1 mmol/L (22-26.0); HHb 8.2 % (0.0-5.0); MODE VENT - PCV; O2Hb 91.2 % (94.0-97.0); PCO2 50.3 mmHg (35.0-45.0); PCO2(T) 50.3 mmHg (35.0-45.0); PIP 20; PO2 67.5 mmHg (80.0-100.0); PO2(T) 67.5 mmHg (80.0-100.0); Sample Type Arterial; pH 7.462 (7.350-7.450)
[2017-04-28] MEDS: LEVOTHYROXINE SODIUM 50 MCG TAB PO SCH (07:24)
[2017-04-28] MEDS: SILDENAFIL CITRATE 20 MG TAB PO SCH ×3 (08:05→21:14)
[2017-04-28] MEDS: MIDAZOLAM DRIP 100 mg/100mL NS 100 ML IV SCH (09:07)
[2017-04-28] MEDS: SODIUM CHLOR 0.9% PF (SALINE LOCK) 10ML VIAL IV SCH ×2 (09:52→21:15)
[2017-04-28] MEDS: PANTOPRAZOLE SODIUM 40 MG/10 ML VIAL IV SCH (09:52)
[2017-04-28] MEDS: LEVOFLOXACIN 500MG 100 ML IV SCH (09:52)
[2017-04-28] MEDS: INSULIN DETEMIR(LEVEMIR) 1unit/0.01ml Soln (100units/ml) SC SCH ×2 (09:53→21:52)
[2017-04-28] MEDS: ENOXAPARIN SOD 120 MG/0.8 ML SYRINGE SC SCH ×2 (10:00→21:15)
[2017-04-28] MEDS: fentaNYL Drip 2500mCg/250mlNS 250 ML IV SCH (11:25)
[2017-04-28] MEDS ORDERED: POTASSIUM CHL 10% (20 MEQ/15ML) ORAL SOLN PO ONE (12:45)
[2017-04-29] VITALS (79 sets, daily range): BP systolic 92–192; BP diastolic 51–111
[2017-04-29] MEDS: IPRATROPIUM BROM 0.5 MG/2.5ML INH SOL NEB SCH ×4 (00:21→18:15)
[2017-04-29] MEDS: ALBUTEROL SULF 2.5 MG/0.5ML(0.5%) NEB SOLN NEB SCH ×4 (00:21→18:15)
[2017-04-29] MEDS: ACCU-CHEK COMFORT CURVE STRIP VI SCH ×5 (02:07→23:05)
[2017-04-29] MEDS: InsuLIN REG 1unit/0.01ml Soln (100units/ml) SC SCH ×5 (02:07→23:06)
[2017-04-29 04:16] LABS: Basophils # (auto) 0.2 uL; Basophils % (auto) 2.9 % (0.0-2.0); CONDITION AutoValidated; Eosinophils # (auto) 0.3 uL; Eosinophils % (auto) 4.1 % (0.0-7.0); Hematocrit 43.5 % (41.0-53.0); Hemoglobin 14.1 g/dL (13.5-17.5); Lymphocytes # (auto) 1.3 uL; Lymphocytes % (auto) 17.9 % (10.0-50.0); Mean Corpuscular Hemoglobin 31.5 pg (28.0-32.0); Mean Corpuscular Hgb Conc. 32.3 g/dL (32.0-36.0); Mean Corpuscular Volume 97.5 fL (80.0-100.0); Mean Platelet Volume 9.6 fL (7.4-10.4); Monocytes # (auto) 0.9 uL; Monocytes % (auto) 12.1 % (0.0-12.0); Neutrophils # (auto) 4.6 uL; Platelet Count (auto) 316 10^3/uL (140-450); Red Cell Distribution Width 16.6 % (11.6-16.0); White Blood Cell 7.3 10^3/uL (4.4-10.8)
[2017-04-29 04:33] LABS: BUN/Creatinine Ratio 32.7; Calcium 9.5 mg/dL (8.5-10.1); Potassium 3.8 mmol/L (3.5-5.1)
[2017-04-29] MEDS: LEVOTHYROXINE SODIUM 50 MCG TAB PO SCH (06:07)
[2017-04-29] MEDS: PRO-STAT 64 30ML GT SCH ×3 (06:07→22:00)
[2017-04-29] MEDS: FREE WATER GT SCH ×5 (06:07→23:06)
[2017-04-29] MEDS: SILDENAFIL CITRATE 20 MG TAB PO SCH ×3 (08:00→20:00)
[2017-04-29 09:15] LABS: Allen Test Yes; Base Excess 6.2 mmol/L (-2.0-2.0); Blood 02Sat 92.5 % (96-100); Blood COHb 0.5 % (0.5-1.5); Blood MetHb 0.2 % (0.0-1.5); HCO3 31.6 mmol/L (22-26.0); HHb 7.4 % (0.0-5.0); IE RATIO 1.3.8; MODE VENT - PCV; O2Hb 91.9 % (94.0-97.0); PCO2 48.4 mmHg (35.0-45.0); PCO2(T) 48.4 mmHg (35.0-45.0); PIP 36; PO2 70.8 mmHg (80.0-100.0); PO2(T) 70.8 mmHg (80.0-100.0); Sample Type Arterial; Spont Vt 667; pH 7.433 (7.350-7.450)
[2017-04-29] MEDS: LEVOFLOXACIN 500MG 100 ML IV SCH (10:00)
[2017-04-29] MEDS: INSULIN DETEMIR(LEVEMIR) 1unit/0.01ml Soln (100units/ml) SC SCH ×2 (10:00→23:03)
[2017-04-29] MEDS: ENOXAPARIN SOD 120 MG/0.8 ML SYRINGE SC SCH ×2 (10:00→22:00)
[2017-04-29] MEDS: SODIUM CHLOR 0.9% PF (SALINE LOCK) 10ML VIAL IV SCH ×2 (10:00→22:00)
[2017-04-29] MEDS: PANTOPRAZOLE SODIUM 40 MG/10 ML VIAL IV SCH (10:00)
[2017-04-29] MEDS: fentaNYL Drip 2500mCg/250mlNS 250 ML IV SCH (11:25)
[2017-04-29] MEDS ORDERED: ONDANSETRON HCL 4 MG/2 ML VIAL IV PRN (14:30)
[2017-04-29] MEDS ORDERED: NITROGLYCERIN 0.4 MG SL TAB SL PRN (14:30)
[2017-04-29] MEDS: LACTULOSE 20Gm/30ML SOLN PO SCH ×2 (16:46→23:06)
[2017-04-29] MEDS: MIDAZOLAM DRIP 100 mg/100mL NS 100 ML IV SCH (16:46)
[2017-04-29] MEDS: PROPOFOL 100 ML IV SCH (17:00)
[2017-04-29 22:23] LABS: Allen Test Modified; Base Excess 6.7 mmol/L (-2.0-2.0); Blood 02Sat 87.4 % (96-100); Blood COHb 0.7 % (0.5-1.5); Blood MetHb 0.3 % (0.0-1.5); HCO3 34.8 mmol/L (22-26.0); HHb 12.5 % (0.0-5.0); MODE VENT - PCV; O2Hb 86.5 % (94.0-97.0); PCO2 64.2 mmHg (35.0-45.0); PCO2(T) 64.2 mmHg (35.0-45.0); PIP 20; PO2 60.8 mmHg (80.0-100.0); PO2(T) 60.8 mmHg (80.0-100.0); Sample Type Arterial; pH 7.352 (7.350-7.450)
[2017-04-30] VITALS (35 sets, daily range): BP systolic 87–167; BP diastolic 3–97
[2017-04-30] MEDS: IPRATROPIUM BROM 0.5 MG/2.5ML INH SOL NEB SCH ×4 (00:11→18:12)
[2017-04-30] MEDS: ALBUTEROL SULF 2.5 MG/0.5ML(0.5%) NEB SOLN NEB SCH ×4 (00:11→18:12)
[2017-04-30 03:57] LABS: Basophils # (auto) 0.1 uL; Basophils % (auto) 1.9 % (0.0-2.0); CONDITION Y; Eosinophils # (auto) 0.2 uL; Eosinophils % (auto) 2.5 % (0.0-7.0); Hemoglobin 13.4 g/dL (13.5-17.5); Lymphocytes # (auto) 1.4 uL; Lymphocytes % (auto) 18.7 % (10.0-50.0); Mean Corpuscular Hemoglobin 31.5 pg (28.0-32.0); Mean Corpuscular Volume 98.2 fL (80.0-100.0); Mean Platelet Volume 9.8 fL (7.4-10.4); Monocytes # (auto) 0.8 uL; Monocytes % (auto) 10.9 % (0.0-12.0); Platelet Count (auto) 297 10^3/uL (140-450); Red Cell Distribution Width 16.1 % (11.6-16.0); White Blood Cell 7.6 10^3/uL (4.4-10.8)
[2017-04-30 04:26] LABS: Albumin 2.6 g/dL (3.4-5.0); Calcium 9.1 mg/dL (8.5-10.1); Potassium 3.8 mmol/L (3.5-5.1)
[2017-04-30 04:29] LABS: BUN/Creatinine Ratio 29.8
[2017-04-30 04:31] LABS: B-Type Natriuretic Peptide 194.94 pg/mL (0-100); Bilirubin, Total 0.7 mg/dL (0.2-1.0)
[2017-04-30 04:38] LABS: Temperature: 21.9 C (20.0-25.0)
[2017-04-30] MEDS: PRO-STAT 64 30ML GT SCH ×3 (06:00→22:00)
[2017-04-30] MEDS: FREE WATER GT SCH ×3 (06:00→18:00)
[2017-04-30] MEDS: LACTULOSE 20Gm/30ML SOLN PO SCH ×3 (06:00→18:00)
[2017-04-30] MEDS: ACCU-CHEK COMFORT CURVE STRIP VI SCH ×3 (06:28→17:38)
[2017-04-30] MEDS: InsuLIN REG 1unit/0.01ml Soln (100units/ml) SC SCH ×3 (06:28→18:00)
[2017-04-30] MEDS: LEVOTHYROXINE SODIUM 50 MCG TAB PO SCH (06:55)
[2017-04-30 09:01] LABS: Allen Test Modified; Base Excess 6.4 mmol/L (-2.0-2.0); Blood 02Sat 89.9 % (96-100); Blood COHb 0.8 % (0.5-1.5); Blood MetHb 0.2 % (0.0-1.5); HCO3 33.1 mmol/L (22-26.0); MODE VENT - PCV; PCO2 55.4 mmHg (35.0-45.0); PCO2(T) 55.4 mmHg (35.0-45.0); PO2 64.8 mmHg (80.0-100.0); PO2(T) 64.8 mmHg (80.0-100.0); Sample Type Arterial; Spont Vt 650; pH 7.394 (7.350-7.450)
[2017-04-30] MEDS: ENOXAPARIN SOD 120 MG/0.8 ML SYRINGE SC SCH ×2 (10:17→22:00)
[2017-04-30] MEDS: PANTOPRAZOLE SODIUM 40 MG/10 ML VIAL IV SCH (10:17)
[2017-04-30] MEDS: SODIUM CHLOR 0.9% PF (SALINE LOCK) 10ML VIAL IV SCH ×2 (10:18→22:00)
[2017-04-30] MEDS: LEVOFLOXACIN 500MG 100 ML IV SCH (10:18)
[2017-04-30] MEDS: INSULIN DETEMIR(LEVEMIR) 1unit/0.01ml Soln (100units/ml) SC SCH ×2 (10:30→22:00)
[2017-04-30] MEDS: SILDENAFIL CITRATE 20 MG TAB PO SCH ×3 (11:13→20:00)
[2017-04-30] MEDS: fentaNYL Drip 2500mCg/250mlNS 250 ML IV SCH (11:25)
[2017-04-30] MEDS ORDERED: BUMETANIDE (0.25MG/ML) 4 ML VIAL IV ONE (15:00)
[2017-04-30] MEDS ORDERED: MAGNESIUM CITRATE SOLUTION 300 ML BTL PO ONE (15:00)
[2017-04-30] MEDS ORDERED: MORPHINE SULF INJ 2 MG/ML SYRINGE 1ML IV PRN (15:00)
[2017-04-30] MEDS ORDERED: POTASSIUM CHL 10% (20 MEQ/15ML) ORAL SOLN GT ONE (15:00)
[2017-04-30] MEDS ORDERED: HYDROcodone-ACET 5/325MG TAB PO PRN (15:00)
[2017-04-30] MEDS ORDERED: HYDROmorphone HCL 2 MG/ML VL IV PRN (15:00)
[2017-04-30] MEDS: MIDAZOLAM DRIP 100 mg/100mL NS 100 ML IV SCH (19:41)
[2017-05-01] VITALS (78 sets, daily range): BP systolic 94–179; BP diastolic 54–98
[2017-05-01] MEDS: ALBUTEROL SULF 2.5 MG/0.5ML(0.5%) NEB SOLN NEB SCH ×4 (00:06→18:23)
[2017-05-01] MEDS: IPRATROPIUM BROM 0.5 MG/2.5ML INH SOL NEB SCH ×4 (00:06→18:23)
[2017-05-01] MEDS: InsuLIN REG 1unit/0.01ml Soln (100units/ml) SC SCH ×4 (01:35→18:23)
[2017-05-01] MEDS: ACCU-CHEK COMFORT CURVE STRIP VI SCH ×4 (01:35→18:22)
[2017-05-01 01:55] LABS: Allen Test Modified; Base Excess 4.8 mmol/L (-2.0-2.0); Blood 02Sat 92.9 % (96-100); Blood COHb 0.9 % (0.5-1.5); Blood MetHb 0.3 % (0.0-1.5); HCO3 34.4 mmol/L (22-26.0); MODE VENT - PCV; O2Hb 91.8 % (94.0-97.0); PCO2 73.9 mmHg (35.0-45.0); PCO2(T) 74.5 mmHg (35.0-45.0); PIP 20; PO2 74.4 mmHg (80.0-100.0); PO2(T) 75.4 mmHg (80.0-100.0); Sample Type Arterial; pH 7.286 (7.350-7.450)
[2017-05-01 03:34] LABS: Allen Test Modified; Base Excess 3.9 mmol/L (-2.0-2.0); Blood 02Sat 94.5 % (96-100); Blood COHb 0.6 % (0.5-1.5); Blood MetHb 0.3 % (0.0-1.5); HCO3 30.9 mmol/L (22-26.0); HHb 5.5 % (0.0-5.0); MODE VENT - PCV; O2Hb 93.6 % (94.0-97.0); PCO2 55.9 mmHg (35.0-45.0); PCO2(T) 55.9 mmHg (35.0-45.0); PIP 26; PO2 77.6 mmHg (80.0-100.0); PO2(T) 77.6 mmHg (80.0-100.0); Sample Type Arterial; Spont Vt 640; pH 7.361 (7.350-7.450)
[2017-05-01 05:12] LABS: Basophils # (auto) 0 uL; Basophils % (auto) 0.3 % (0.0-2.0); CONDITION Y; Eosinophils # (auto) 0.1 uL; Eosinophils % (auto) 1.3 % (0.0-7.0); Hematocrit 43.3 % (41.0-53.0); Hemoglobin 13.9 g/dL (13.5-17.5); Lymphocytes # (auto) 0.9 uL; Lymphocytes % (auto) 9.6 % (10.0-50.0); Mean Corpuscular Hemoglobin 31.7 pg (28.0-32.0); Mean Corpuscular Hgb Conc. 32.1 g/dL (32.0-36.0); Mean Corpuscular Volume 98.7 fL (80.0-100.0); Mean Platelet Volume 9.6 fL (7.4-10.4); Monocytes # (auto) 0.8 uL; Neutrophils # (auto) 7.7 uL; Neutrophils % (auto) 80.8 % (37.0-80.0); Platelet Count (auto) 276 10^3/uL (140-450); Red Cell Distribution Width 16.2 % (11.6-16.0); White Blood Cell 9.5 10^3/uL (4.4-10.8)
[2017-05-01 05:26] LABS: INR 1.12 (0.9-1.15); Partial Thromboplastin Time 32.5 sec (22.64-33.71); Prothrombin Time 12.2 sec (9.37-12.3)
[2017-05-01 05:27] LABS: Albumin 2.7 g/dL (3.4-5.0); Calcium 9.3 mg/dL (8.5-10.1); Magnesium 2.2 mg/dL (1.6-2.6); Potassium 4.4 mmol/L (3.5-5.1)
[2017-05-01 05:30] LABS: BUN/Creatinine Ratio 27.1; Bilirubin, Total 0.6 mg/dL (0.2-1.0); Total Protein 7.2 g/dL (6.4-8.2)
[2017-05-01] MEDS: PRO-STAT 64 30ML GT SCH ×3 (06:00→22:00)
[2017-05-01] MEDS: LACTULOSE 20Gm/30ML SOLN PO SCH ×2 (06:00)
[2017-05-01] MEDS: FREE WATER GT SCH ×4 (06:00→18:22)
[2017-05-01] MEDS: LEVOTHYROXINE SODIUM 50 MCG TAB PO SCH (06:54)
[2017-05-01 08:39] LABS: Allen Test Yes; Base Excess 7.7 mmol/L (-2.0-2.0); Blood 02Sat 94.7 % (96-100); Blood COHb 1.1 % (0.5-1.5); Blood MetHb 0.2 % (0.0-1.5); HCO3 35.4 mmol/L (22-26.0); HHb 5.2 % (0.0-5.0); MODE VENT - PCV; O2Hb 93.5 % (94.0-97.0); PCO2 62.8 mmHg (35.0-45.0); PCO2(T) 62.8 mmHg (35.0-45.0); PO2 78.7 mmHg (80.0-100.0); PO2(T) 78.7 mmHg (80.0-100.0); Sample Type Arterial; pH 7.369 (7.350-7.450)
[2017-05-01] MEDS: ENOXAPARIN SOD 120 MG/0.8 ML SYRINGE SC SCH (10:26)
[2017-05-01] MEDS: SILDENAFIL CITRATE 20 MG TAB PO SCH ×3 (10:26→20:00)
[2017-05-01] MEDS: LEVOFLOXACIN 500MG 100 ML IV SCH (10:26)
[2017-05-01] MEDS: PANTOPRAZOLE SODIUM 40 MG/10 ML VIAL IV SCH (10:26)
[2017-05-01] MEDS: PROPOFOL 100 ML IV SCH (10:27)
[2017-05-01] MEDS: MIDAZOLAM DRIP 100 mg/100mL NS 100 ML IV SCH (10:28)
[2017-05-01] MEDS: SODIUM CHLOR 0.9% PF (SALINE LOCK) 10ML VIAL IV SCH ×2 (10:28→22:00)
[2017-05-01] MEDS: INSULIN DETEMIR(LEVEMIR) 1unit/0.01ml Soln (100units/ml) SC SCH ×2 (10:39→22:00)
[2017-05-01] MEDS ORDERED: fentaNYL Drip 2500mCg/250mlNS 250 ML IV ONE (13:56)
[2017-05-01] MEDS: fentaNYL Drip 2500mCg/250mlNS 250 ML IV SCH (14:00)
[2017-05-01] MEDS: PIPERACILLIN-TAZOB 3.375GM 100 ML IV SCH (18:22)
[2017-05-01] MEDS: ENOXAPARIN SOD 150 MG/1 ML SYRINGE SC SCH (22:00)
[2017-05-02] VITALS (86 sets, daily range): BP systolic 85–148; BP diastolic 47–84
[2017-05-02 05:38] LABS: Basophils # (auto) 0 uL; Basophils % (auto) 0.5 % (0.0-2.0); CONDITION Y; Eosinophils # (auto) 0.3 uL; Eosinophils % (auto) 3.2 % (0.0-7.0); Hematocrit 43.7 % (41.0-53.0); Lymphocytes # (auto) 1.2 uL; Mean Corpuscular Hemoglobin 31.7 pg (28.0-32.0); Mean Corpuscular Hgb Conc. 32.1 g/dL (32.0-36.0); Mean Corpuscular Volume 98.6 fL (80.0-100.0); Mean Platelet Volume 9.1 fL (7.4-10.4); Monocytes # (auto) 0.9 uL; Monocytes % (auto) 10.5 % (0.0-12.0); Neutrophils # (auto) 5.8 uL; Neutrophils % (auto) 70.8 % (37.0-80.0); Platelet Count (auto) 287 10^3/uL (140-450); Red Cell Distribution Width 16.1 % (11.6-16.0); White Blood Cell 8.2 10^3/uL (4.4-10.8)
[2017-05-02] MEDS: FREE WATER GT SCH ×4 (06:00→18:00)
[2017-05-02] MEDS: PIPERACILLIN-TAZOB 3.375GM 100 ML IV SCH ×4 (06:00→18:44)
[2017-05-02] MEDS: PRO-STAT 64 30ML GT SCH ×3 (06:00→22:00)
[2017-05-02 06:02] LABS: Temperature: 22.7 C (20.0-25.0)
[2017-05-02 06:08] LABS: Calcium 9.6 mg/dL (8.5-10.1); Potassium 4.1 mmol/L (3.5-5.1)
[2017-05-02 06:11] LABS: BUN/Creatinine Ratio 31.2
[2017-05-02] MEDS: ALBUTEROL SULF 2.5 MG/0.5ML(0.5%) NEB SOLN NEB SCH ×4 (06:15→18:21)
[2017-05-02] MEDS: IPRATROPIUM BROM 0.5 MG/2.5ML INH SOL NEB SCH ×4 (06:15→18:21)
[2017-05-02] MEDS: ACCU-CHEK COMFORT CURVE STRIP VI SCH ×4 (06:16→18:00)
[2017-05-02] MEDS: InsuLIN REG 1unit/0.01ml Soln (100units/ml) SC SCH ×4 (06:17→18:00)
[2017-05-02] MEDS: LEVOTHYROXINE SODIUM 50 MCG TAB PO SCH (06:44)
[2017-05-02 07:41] LABS: Allen Test Modified; Base Excess 8.8 mmol/L (-2.0-2.0); Blood 02Sat 93.8 % (96-100); Blood COHb 0.5 % (0.5-1.5); Blood MetHb 0.1 % (0.0-1.5); HCO3 33.4 mmol/L (22-26.0); HHb 6.2 % (0.0-5.0); MODE VENT - PCV; O2Hb 93.2 % (94.0-97.0); PCO2 45.3 mmHg (35.0-45.0); PCO2(T) 45.3 mmHg (35.0-45.0); PIP 26; PO2 67.9 mmHg (80.0-100.0); PO2(T) 67.9 mmHg (80.0-100.0); Pressure Support 40; Sample Type Arterial; pH 7.486 (7.350-7.450)
[2017-05-02] MEDS: SILDENAFIL CITRATE 20 MG TAB PO SCH ×2 (10:30→18:44)
[2017-05-02] MEDS: SODIUM CHLOR 0.9% PF (SALINE LOCK) 10ML VIAL IV SCH ×2 (10:30→22:00)
[2017-05-02] MEDS: PANTOPRAZOLE SODIUM 40 MG/10 ML VIAL IV SCH (10:30)
[2017-05-02] MEDS: ENOXAPARIN SOD 150 MG/1 ML SYRINGE SC SCH ×2 (10:30→22:00)
[2017-05-02] MEDS ORDERED: BUMETANIDE (0.25MG/ML) 4 ML VIAL IV ONE (10:45)
[2017-05-02] MEDS: INSULIN DETEMIR(LEVEMIR) 1unit/0.01ml Soln (100units/ml) SC SCH ×2 (11:08→21:59)
[2017-05-02] MEDS: fentaNYL Drip 2500mCg/250mlNS 250 ML IV SCH (11:57)
[2017-05-02] MEDS: PROPOFOL 100 ML IV SCH (12:57)
[2017-05-02] MEDS: MIDAZOLAM DRIP 100 mg/100mL NS 100 ML IV SCH ×2 (15:03→19:48)
[2017-05-03] VITALS (108 sets, daily range): BP systolic 85–160; BP diastolic 46–94
[2017-05-03] MEDS: IPRATROPIUM BROM 0.5 MG/2.5ML INH SOL NEB SCH ×4 (00:33→18:49)
[2017-05-03] MEDS: ALBUTEROL SULF 2.5 MG/0.5ML(0.5%) NEB SOLN NEB SCH ×4 (00:33→18:49)
[2017-05-03] MEDS: MIDAZOLAM DRIP 100 mg/100mL NS 100 ML IV SCH ×3 (02:00→19:30)
[2017-05-03] MEDS: InsuLIN REG 1unit/0.01ml Soln (100units/ml) SC SCH ×5 (06:00→23:48)
[2017-05-03] MEDS: ACCU-CHEK COMFORT CURVE STRIP VI SCH ×5 (06:18→23:48)
[2017-05-03] MEDS: LEVOTHYROXINE SODIUM 50 MCG TAB PO SCH (06:18)
[2017-05-03] MEDS: PIPERACILLIN-TAZOB 3.375GM 100 ML IV SCH ×5 (06:18→23:48)
[2017-05-03] MEDS: PRO-STAT 64 30ML GT SCH ×3 (06:18→22:17)
[2017-05-03] MEDS: FREE WATER GT SCH ×5 (06:18→23:48)
[2017-05-03 07:58] LABS: Allen Test Yes; Base Excess 6.7 mmol/L (-2.0-2.0); Blood 02Sat 91.5 % (96-100); Blood COHb 0.8 % (0.5-1.5); Blood MetHb 0.2 % (0.0-1.5); HCO3 31.8 mmol/L (22-26.0); HHb 8.4 % (0.0-5.0); MODE VENT - PCV; O2Hb 90.6 % (94.0-97.0); PCO2 46.8 mmHg (35.0-45.0); PCO2(T) 46.8 mmHg (35.0-45.0); PIP 39; PO2 64.4 mmHg (80.0-100.0); PO2(T) 64.4 mmHg (80.0-100.0); Sample Type Arterial; Spont Vt 710
[2017-05-03] MEDS: SILDENAFIL CITRATE 20 MG TAB PO SCH ×4 (08:29→20:30)
[2017-05-03] MEDS: ENOXAPARIN SOD 150 MG/1 ML SYRINGE SC SCH ×2 (09:04→22:17)
[2017-05-03] MEDS: SODIUM CHLOR 0.9% PF (SALINE LOCK) 10ML VIAL IV SCH ×2 (09:04→22:17)
[2017-05-03] MEDS: PANTOPRAZOLE SODIUM 40 MG/10 ML VIAL IV SCH (09:04)
[2017-05-03] MEDS: INSULIN DETEMIR(LEVEMIR) 1unit/0.01ml Soln (100units/ml) SC SCH ×2 (09:22→22:18)
[2017-05-03] MEDS: PROPOFOL 100 ML IV SCH (10:24)
[2017-05-03] MEDS ORDERED: BUMETANIDE (0.25MG/ML) 4 ML VIAL IV ONE (11:15)
[2017-05-03] MEDS ORDERED: POTASSIUM CHL 10% (20 MEQ/15ML) ORAL SOLN GT ONE (11:15)
[2017-05-03] MEDS: fentaNYL Drip 2500mCg/250mlNS 250 ML IV SCH ×2 (15:19)
[2017-05-03] MEDS: METOCLOPRAMIDE HCL 5MG/ml INJ 2ml VIAL IV PRN (22:00)
[2017-05-04] VITALS (108 sets, daily range): BP systolic 75–158; BP diastolic 38–112
[2017-05-04] MEDS: MIDAZOLAM DRIP 100 mg/100mL NS 100 ML IV SCH ×2 (03:15→19:30)
[2017-05-04 04:08] LABS: Basophils # (auto) 0.1 uL; CONDITION Y; Eosinophils # (auto) 0.2 uL; Eosinophils % (auto) 3.8 % (0.0-7.0); Hematocrit 38.3 % (41.0-53.0); Hemoglobin 12.5 g/dL (13.5-17.5); Lymphocytes # (auto) 1.3 uL; Lymphocytes % (auto) 20.8 % (10.0-50.0); Mean Corpuscular Hemoglobin 31.6 pg (28.0-32.0); Mean Corpuscular Hgb Conc. 32.7 g/dL (32.0-36.0); Mean Corpuscular Volume 96.7 fL (80.0-100.0); Mean Platelet Volume 10.1 fL (7.4-10.4); Monocytes # (auto) 0.6 uL; Monocytes % (auto) 10.4 % (0.0-12.0); Neutrophils # (auto) 3.9 uL; Platelet Count (auto) 221 10^3/uL (140-450); Red Cell Distribution Width 15.1 % (11.6-16.0); White Blood Cell 6.1 10^3/uL (4.4-10.8)
[2017-05-04 04:45] LABS: Albumin 2.3 g/dL (3.4-5.0); BUN/Creatinine Ratio 36.4; Bilirubin, Total 0.6 mg/dL (0.2-1.0); Calcium 8.7 mg/dL (8.5-10.1); Potassium 3.3 mmol/L (3.5-5.1); Total Protein 6.2 g/dL (6.4-8.2)
[2017-05-04] MEDS: InsuLIN REG 1unit/0.01ml Soln (100units/ml) SC SCH ×3 (06:00→18:00)
[2017-05-04] MEDS: PRO-STAT 64 30ML GT SCH ×3 (06:15→22:21)
[2017-05-04] MEDS: FREE WATER GT SCH ×3 (06:15→16:58)
[2017-05-04] MEDS: PIPERACILLIN-TAZOB 3.375GM 100 ML IV SCH ×3 (06:15→18:00)
[2017-05-04] MEDS: LEVOTHYROXINE SODIUM 50 MCG TAB PO SCH (06:15)
[2017-05-04] MEDS: ACCU-CHEK COMFORT CURVE STRIP VI SCH ×3 (06:15→18:00)
[2017-05-04] MEDS: fentaNYL Drip 2500mCg/250mlNS 250 ML IV SCH (06:21)
[2017-05-04] MEDS: IPRATROPIUM BROM 0.5 MG/2.5ML INH SOL NEB SCH ×4 (06:51→18:52)
[2017-05-04] MEDS: ALBUTEROL SULF 2.5 MG/0.5ML(0.5%) NEB SOLN NEB SCH ×4 (06:51→18:52)
[2017-05-04 07:09] LABS: Base Excess 8.7 mmol/L (-2.0-2.0); Blood 02Sat 88.8 % (96-100); Blood COHb 0.7 % (0.5-1.5); Blood MetHb 0.1 % (0.0-1.5); HCO3 33.4 mmol/L (22-26.0); HHb 11.1 % (0.0-5.0); MODE VENT - PCV; O2Hb 88.1 % (94.0-97.0); PO2 57.9 mmHg (80.0-100.0); PO2(T) 57.9 mmHg (80.0-100.0); Sample Type Arterial; pH 7.479 (7.350-7.450)
[2017-05-04] MEDS: PROPOFOL 100 ML IV SCH (08:45)
[2017-05-04] MEDS: ENOXAPARIN SOD 150 MG/1 ML SYRINGE SC SCH ×2 (09:58→22:23)
[2017-05-04] MEDS: SILDENAFIL CITRATE 20 MG TAB PO SCH ×3 (09:58→20:00)
[2017-05-04] MEDS: POTASSIUM CHL 10% (20 MEQ/15ML) ORAL SOLN GT SCH (09:58)
[2017-05-04] MEDS: PANTOPRAZOLE SODIUM 40 MG/10 ML VIAL IV SCH (09:59)
[2017-05-04] MEDS: SODIUM CHLOR 0.9% PF (SALINE LOCK) 10ML VIAL IV SCH ×2 (09:59→22:22)
[2017-05-04] MEDS: BUMETANIDE (0.25 MG/ML) INJ 10ML IV SCH (09:59)
[2017-05-04] MEDS: INSULIN DETEMIR(LEVEMIR) 1unit/0.01ml Soln (100units/ml) SC SCH ×2 (10:00→22:24)
[2017-05-05] VITALS (102 sets, daily range): BP systolic 79–174; BP diastolic 47–109
[2017-05-05] MEDS: ALBUTEROL SULF 2.5 MG/0.5ML(0.5%) NEB SOLN NEB SCH ×4 (00:04→18:18)
[2017-05-05] MEDS: IPRATROPIUM BROM 0.5 MG/2.5ML INH SOL NEB SCH ×4 (00:04→18:18)
[2017-05-05] MEDS: METOCLOPRAMIDE HCL 5MG/ml INJ 2ml VIAL IV PRN (00:10)
[2017-05-05] MEDS: PIPERACILLIN-TAZOB 3.375GM 100 ML IV SCH ×4 (00:30→17:20)
[2017-05-05] MEDS: fentaNYL Drip 2500mCg/250mlNS 250 ML IV SCH (00:30)
[2017-05-05 04:16] LABS: Basophils # (auto) 0.1 uL; Basophils % (auto) 0.9 % (0.0-2.0); CONDITION Y; Eosinophils # (auto) 0.3 uL; Hematocrit 41.3 % (41.0-53.0); Hemoglobin 13.6 g/dL (13.5-17.5); Lymphocytes # (auto) 1.2 uL; Lymphocytes % (auto) 20.8 % (10.0-50.0); Mean Corpuscular Hemoglobin 31.6 pg (28.0-32.0); Mean Corpuscular Hgb Conc. 32.8 g/dL (32.0-36.0); Mean Corpuscular Volume 96.3 fL (80.0-100.0); Monocytes # (auto) 0.7 uL; Monocytes % (auto) 12.6 % (0.0-12.0); Neutrophils # (auto) 3.5 uL; Neutrophils % (auto) 60.7 % (37.0-80.0); Platelet Count (auto) 203 10^3/uL (140-450); Red Cell Distribution Width 15.4 % (11.6-16.0); SUSPECT SEE PRINTOUT; White Blood Cell 5.7 10^3/uL (4.4-10.8)
[2017-05-05 04:47] LABS: BUN/Creatinine Ratio 31.3; Calcium 8.9 mg/dL (8.5-10.1); Magnesium 1.9 mg/dL (1.6-2.6); Phosphorus 3.1 mg/dL (2.5-4.90); Potassium 3.4 mmol/L (3.5-5.1)
[2017-05-05] MEDS: InsuLIN REG 1unit/0.01ml Soln (100units/ml) SC SCH ×4 (06:00→17:20)
[2017-05-05] MEDS: LEVOTHYROXINE SODIUM 50 MCG TAB PO SCH (06:15)
[2017-05-05] MEDS: PRO-STAT 64 30ML GT SCH ×3 (06:15→22:23)
[2017-05-05] MEDS: ACCU-CHEK COMFORT CURVE STRIP VI SCH ×4 (06:15→17:20)
[2017-05-05] MEDS: FREE WATER GT SCH ×4 (06:15→17:20)
[2017-05-05] MEDS: MIDAZOLAM DRIP 100 mg/100mL NS 100 ML IV SCH ×2 (06:16→23:43)
[2017-05-05] MEDS: PROPOFOL 100 ML IV SCH (07:06)
[2017-05-05 08:14] LABS: Allen Test Yes; Base Excess 7.2 mmol/L (-2.0-2.0); Blood 02Sat 92.7 % (96-100); Blood COHb 0.4 % (0.5-1.5); Blood MetHb 0.1 % (0.0-1.5); HCO3 34.1 mmol/L (22-26.0); HHb 7.3 % (0.0-5.0); IE RATIO 1.4.0; MODE VENT - PCV; O2Hb 92.2 % (94.0-97.0); PCO2 57.5 mmHg (35.0-45.0); PCO2(T) 57.5 mmHg (35.0-45.0); PIP 26; PO2 75.1 mmHg (80.0-100.0); PO2(T) 75.1 mmHg (80.0-100.0); Sample Type Arterial; Spont Vt 640; pH 7.391 (7.350-7.450)
[2017-05-05] MEDS: BUMETANIDE (0.25 MG/ML) INJ 10ML IV SCH (09:23)
[2017-05-05] MEDS: ENOXAPARIN SOD 150 MG/1 ML SYRINGE SC SCH ×2 (09:23→22:25)
[2017-05-05] MEDS: PANTOPRAZOLE SODIUM 40 MG/10 ML VIAL IV SCH (09:23)
[2017-05-05] MEDS: SILDENAFIL CITRATE 20 MG TAB PO SCH ×3 (09:23→21:15)
[2017-05-05] MEDS: POTASSIUM CHL 10% (20 MEQ/15ML) ORAL SOLN GT SCH (09:23)
[2017-05-05] MEDS: SODIUM CHLOR 0.9% PF (SALINE LOCK) 10ML VIAL IV SCH ×2 (09:23→22:23)
[2017-05-05] MEDS: INSULIN DETEMIR(LEVEMIR) 1unit/0.01ml Soln (100units/ml) SC SCH ×2 (10:00→22:30)
[2017-05-06] VITALS (105 sets, daily range): BP systolic 74–148; BP diastolic 35–94
[2017-05-06] MEDS: ALBUTEROL SULF 2.5 MG/0.5ML(0.5%) NEB SOLN NEB SCH ×4 (00:56→18:59)
[2017-05-06] MEDS: IPRATROPIUM BROM 0.5 MG/2.5ML INH SOL NEB SCH ×4 (00:57→18:59)
[2017-05-06] MEDS: PIPERACILLIN-TAZOB 3.375GM 100 ML IV SCH ×4 (01:06→18:52)
[2017-05-06 04:13] LABS: Basophils # (auto) 0 uL; Basophils % (auto) 0.6 % (0.0-2.0); CONDITION Y; Eosinophils # (auto) 0.2 uL; Eosinophils % (auto) 3.2 % (0.0-7.0); Hematocrit 39.4 % (41.0-53.0); Hemoglobin 12.9 g/dL (13.5-17.5); Lymphocytes # (auto) 1.3 uL; Mean Corpuscular Hemoglobin 31.9 pg (28.0-32.0); Mean Corpuscular Hgb Conc. 32.8 g/dL (32.0-36.0); Mean Corpuscular Volume 97.1 fL (80.0-100.0); Mean Platelet Volume 9.8 fL (7.4-10.4); Monocytes # (auto) 0.7 uL; Monocytes % (auto) 9.9 % (0.0-12.0); Neutrophils # (auto) 4.7 uL; Neutrophils % (auto) 67.3 % (37.0-80.0); Platelet Count (auto) 283 10^3/uL (140-450); Red Cell Distribution Width 15.4 % (11.6-16.0); White Blood Cell 6.9 10^3/uL (4.4-10.8)
[2017-05-06 04:29] LABS: Calcium 8.7 mg/dL (8.5-10.1); Magnesium 2.1 mg/dL (1.6-2.6); Phosphorus 3.2 mg/dL (2.5-4.90); Potassium 3.4 mmol/L (3.5-5.1)
[2017-05-06] MEDS: PRO-STAT 64 30ML GT SCH ×3 (05:49→21:47)
[2017-05-06] MEDS: FREE WATER GT SCH ×4 (05:56→18:52)
[2017-05-06] MEDS: InsuLIN REG 1unit/0.01ml Soln (100units/ml) SC SCH ×4 (06:00→18:52)
[2017-05-06] MEDS: ACCU-CHEK COMFORT CURVE STRIP VI SCH ×4 (06:23→18:53)
[2017-05-06] MEDS: LEVOTHYROXINE SODIUM 50 MCG TAB PO SCH (06:26)
[2017-05-06 08:04] LABS: Allen Test Modified; Base Excess 8.8 mmol/L (-2.0-2.0); Blood 02Sat 89.1 % (96-100); Blood COHb 0.3 % (0.5-1.5); Blood MetHb 0.2 % (0.0-1.5); HCO3 34.2 mmol/L (22-26.0); HHb 10.8 % (0.0-5.0); MODE VENT - PCV; O2Hb 88.7 % (94.0-97.0); PCO2 49.6 mmHg (35.0-45.0); PCO2(T) 50.3 mmHg (35.0-45.0); PO2 62.8 mmHg (80.0-100.0); PO2(T) 64.1 mmHg (80.0-100.0); Sample Type Arterial; Spont Vt 709; pH 7.457 (7.350-7.450)
[2017-05-06] MEDS: PROPOFOL 100 ML IV SCH (08:08)
[2017-05-06] MEDS: SILDENAFIL CITRATE 20 MG TAB PO SCH ×3 (08:08→20:12)
[2017-05-06] MEDS: SODIUM CHLOR 0.9% PF (SALINE LOCK) 10ML VIAL IV SCH ×2 (10:00→21:48)
[2017-05-06] MEDS: POTASSIUM CHL 10% (20 MEQ/15ML) ORAL SOLN GT SCH ×2 (10:17→21:47)
[2017-05-06] MEDS: BUMETANIDE (0.25 MG/ML) INJ 10ML IV SCH ×2 (10:18→22:43)
[2017-05-06] MEDS: PANTOPRAZOLE SODIUM 40 MG/10 ML VIAL IV SCH (10:18)
[2017-05-06] MEDS: ENOXAPARIN SOD 150 MG/1 ML SYRINGE SC SCH ×2 (10:19→21:48)
[2017-05-06] MEDS: INSULIN DETEMIR(LEVEMIR) 1unit/0.01ml Soln (100units/ml) SC SCH ×2 (10:35→22:41)
[2017-05-06] MEDS: fentaNYL Drip 2500mCg/250mlNS 250 ML IV SCH (16:04)
[2017-05-07] VITALS (107 sets, daily range): BP systolic 94–147; BP diastolic 48–98
[2017-05-07] MEDS: ACCU-CHEK COMFORT CURVE STRIP VI SCH ×5 (00:29→23:46)
[2017-05-07] MEDS: PIPERACILLIN-TAZOB 3.375GM 100 ML IV SCH ×5 (00:30→23:46)
[2017-05-07] MEDS: InsuLIN REG 1unit/0.01ml Soln (100units/ml) SC SCH ×4 (00:30→19:00)
[2017-05-07] MEDS: FREE WATER GT SCH ×5 (00:31→23:46)
[2017-05-07] MEDS: MIDAZOLAM DRIP 100 mg/100mL NS 100 ML IV SCH ×2 (00:31→06:06)
[2017-05-07] MEDS: PROPOFOL 100 ML IV SCH (00:32)
[2017-05-07] MEDS: ALBUTEROL SULF 2.5 MG/0.5ML(0.5%) NEB SOLN NEB SCH ×4 (00:40→18:46)
[2017-05-07] MEDS: IPRATROPIUM BROM 0.5 MG/2.5ML INH SOL NEB SCH ×4 (00:40→18:46)
[2017-05-07] MEDS: PRO-STAT 64 30ML GT SCH ×3 (06:05→22:10)
[2017-05-07] MEDS: fentaNYL Drip 2500mCg/250mlNS 250 ML IV SCH ×2 (06:06→20:01)
[2017-05-07] MEDS: LEVOTHYROXINE SODIUM 50 MCG TAB PO SCH (06:39)
[2017-05-07 06:43] LABS: Allen Test Yes; Base Excess 5.6 mmol/L (-2.0-2.0); Blood 02Sat 91.6 % (96-100); Blood COHb 0.5 % (0.5-1.5); Blood MetHb 0.3 % (0.0-1.5); HCO3 27.8 mmol/L (22-26.0); HHb 8.3 % (0.0-5.0); MODE VENT - PCV; O2Hb 90.9 % (94.0-97.0); PCO2 33.2 mmHg (35.0-45.0); PCO2(T) 33.2 mmHg (35.0-45.0); PO2 61.2 mmHg (80.0-100.0); PO2(T) 61.2 mmHg (80.0-100.0); Sample Type Arterial; pH 7.541 (7.350-7.450)
[2017-05-07 06:50] LABS: Magnesium 2.2 mg/dL (1.6-2.6); Phosphorus 3.3 mg/dL (2.5-4.90)
[2017-05-07] MEDS: SILDENAFIL CITRATE 20 MG TAB PO SCH ×3 (07:44→20:02)
[2017-05-07] MEDS: SODIUM CHLOR 0.9% PF (SALINE LOCK) 10ML VIAL IV SCH ×2 (10:25→22:10)
[2017-05-07] MEDS: POTASSIUM CHL 10% (20 MEQ/15ML) ORAL SOLN GT SCH ×2 (10:25→22:09)
[2017-05-07] MEDS: PANTOPRAZOLE SODIUM 40 MG/10 ML VIAL IV SCH (10:25)
[2017-05-07] MEDS: ENOXAPARIN SOD 150 MG/1 ML SYRINGE SC SCH ×2 (10:26→22:00)
[2017-05-07] MEDS: BUMETANIDE (0.25 MG/ML) INJ 10ML IV SCH ×2 (10:26→22:22)
[2017-05-07] MEDS: INSULIN DETEMIR(LEVEMIR) 1unit/0.01ml Soln (100units/ml) SC SCH ×2 (10:35→22:30)
[2017-05-07] MEDS ORDERED: methylPREDNISolone SOD SUCC 40 MG/ML VL IV ONE (11:30)
[2017-05-07] MEDS ORDERED: ACETAMINOPHEN 500 MG TAB PO PRN (11:30)
[2017-05-07] MEDS: methylPREDNISolone SOD SUCC 40 MG/ML VL IV SCH (22:10)
[2017-05-08] VITALS (100 sets, daily range): BP systolic 93–159; BP diastolic 50–99
[2017-05-08] MEDS: ALBUTEROL SULF 2.5 MG/0.5ML(0.5%) NEB SOLN NEB SCH ×4 (00:32→18:17)
[2017-05-08] MEDS: IPRATROPIUM BROM 0.5 MG/2.5ML INH SOL NEB SCH ×4 (00:32→18:17)
[2017-05-08] MEDS: MIDAZOLAM DRIP 100 mg/100mL NS 100 ML IV SCH ×2 (01:00→07:37)
[2017-05-08] MEDS: PROPOFOL 100 ML IV SCH (02:09)
[2017-05-08 03:55] LABS: Basophils # (auto) 0 uL; CONDITION Y; Eosinophils # (auto) 0 uL; Hematocrit 43.7 % (41.0-53.0); Hemoglobin 14.3 g/dL (13.5-17.5); Lymphocytes # (auto) 0.6 uL; Lymphocytes % (auto) 5.4 % (10.0-50.0); Mean Corpuscular Hemoglobin 31.6 pg (28.0-32.0); Mean Corpuscular Hgb Conc. 32.7 g/dL (32.0-36.0); Mean Corpuscular Volume 96.6 fL (80.0-100.0); Monocytes # (auto) 0.3 uL; Monocytes % (auto) 2.4 % (0.0-12.0); Neutrophils # (auto) 9.9 uL; Neutrophils % (auto) 92.2 % (37.0-80.0); Platelet Count (auto) 296 10^3/uL (140-450); Red Cell Distribution Width 15.6 % (11.6-16.0); SUSPECT SEE PRINTOUT; White Blood Cell 10.8 10^3/uL (4.4-10.8)
[2017-05-08 04:15] LABS: Calcium 9.4 mg/dL (8.5-10.1); Potassium 4.1 mmol/L (3.5-5.1)
[2017-05-08 04:17] LABS: BUN/Creatinine Ratio 30.9
[2017-05-08] MEDS: FREE WATER GT SCH ×3 (06:00→16:57)
[2017-05-08] MEDS: PRO-STAT 64 30ML GT SCH ×3 (06:00→22:13)
[2017-05-08] MEDS: PIPERACILLIN-TAZOB 3.375GM 100 ML IV SCH ×3 (06:14→16:56)
[2017-05-08] MEDS: InsuLIN REG 1unit/0.01ml Soln (100units/ml) SC SCH ×4 (06:15→16:57)
[2017-05-08] MEDS: ACCU-CHEK COMFORT CURVE STRIP VI SCH ×3 (06:15→16:57)
[2017-05-08] MEDS: LEVOTHYROXINE SODIUM 50 MCG TAB PO SCH (06:15)
[2017-05-08] MEDS: SILDENAFIL CITRATE 20 MG TAB PO SCH ×3 (08:00→22:11)
[2017-05-08] MEDS ORDERED: LIDOCAINE HCL 2% TOP JELLY 5ML TOP ONE (08:19)
[2017-05-08] MEDS ORDERED: SODIUM CHLORIDE LOCK 30 ML ONE (08:19)
[2017-05-08] MEDS ORDERED: LIDOCAINE 2%HCL (LOCAL ANESTH.) INJ 20ML MDV ONE (08:19)
[2017-05-08] MEDS ORDERED: EPINEPHrine HCL 1 MG/1 ML AMP ONE (08:19)
[2017-05-08] MEDS ORDERED: fentaNYL CITRATE 100 MCG/2 ML VL ONE (08:19)
[2017-05-08] MEDS ORDERED: MIDAZOLAM HCL 5 MG/ML-1ML VIAL ONE (08:19)
[2017-05-08 09:11] LABS: Allen Test Modified; Base Excess 3.6 mmol/L (-2.0-2.0); Blood 02Sat 95.3 % (96-100); Blood COHb 0.5 % (0.5-1.5); Blood MetHb 0.2 % (0.0-1.5); HCO3 31.6 mmol/L (22-26.0); HHb 4.7 % (0.0-5.0); MODE VENT - PCV; O2Hb 94.6 % (94.0-97.0); PCO2 63.3 mmHg (35.0-45.0); PCO2(T) 63.3 mmHg (35.0-45.0); PIP 26; PO2 97.7 mmHg (80.0-100.0); PO2(T) 97.7 mmHg (80.0-100.0); Sample Type Arterial; pH 7.316 (7.350-7.450)
[2017-05-08] MEDS: POTASSIUM CHL 10% (20 MEQ/15ML) ORAL SOLN GT SCH ×2 (10:00→22:12)
[2017-05-08] MEDS ORDERED: MORPHINE SULF INJ 2 MG/ML SYRINGE 1ML IV PRN (12:30)
[2017-05-08] MEDS: SODIUM CHLOR 0.9% PF (SALINE LOCK) 10ML VIAL IV SCH ×2 (12:35→22:12)
[2017-05-08] MEDS: BUMETANIDE (0.25 MG/ML) INJ 10ML IV SCH ×2 (12:35→22:12)
[2017-05-08] MEDS: PANTOPRAZOLE SODIUM 40 MG/10 ML VIAL IV SCH (12:35)
[2017-05-08] MEDS: MIDAZOLAM DRIP 50 mg/50mL NS 50 ML IV SCH (12:36)
[2017-05-08] MEDS: methylPREDNISolone SOD SUCC 40 MG/ML VL IV SCH ×2 (12:36→22:12)
[2017-05-08] MEDS: ENOXAPARIN SOD 150 MG/1 ML SYRINGE SC SCH ×2 (12:36→22:12)
[2017-05-08] MEDS: INSULIN DETEMIR(LEVEMIR) 1unit/0.01ml Soln (100units/ml) SC SCH ×2 (13:22→22:24)
[2017-05-08] MEDS ORDERED: MORPHINE SULFATE 4 MG/ML SYRG IV PRN (14:08)
[2017-05-08] MEDS: fentaNYL Drip 2500mCg/250mlNS 250 ML IV SCH (14:22)
[2017-05-08 14:58] LABS: Allen Test Modified; Base Excess 5.7 mmol/L (-2.0-2.0); Blood 02Sat 93.2 % (96-100); Blood COHb 0.4 % (0.5-1.5); Blood MetHb 0.2 % (0.0-1.5); HCO3 31.9 mmol/L (22-26.0); HHb 6.8 % (0.0-5.0); MODE VENT - PCV; O2Hb 92.6 % (94.0-97.0); PCO2 52.5 mmHg (35.0-45.0); PCO2(T) 52.5 mmHg (35.0-45.0); PIP 26; PO2 73.6 mmHg (80.0-100.0); PO2(T) 73.6 mmHg (80.0-100.0); Sample Type Arterial; pH 7.402 (7.350-7.450)
[2017-05-09] VITALS (105 sets, daily range): BP systolic 96–191; BP diastolic 48–110
[2017-05-09] MEDS: PROPOFOL 100 ML IV SCH ×2 (00:30→22:51)
[2017-05-09] MEDS: ACCU-CHEK COMFORT CURVE STRIP VI SCH ×5 (06:00→23:29)
[2017-05-09] MEDS: InsuLIN REG 1unit/0.01ml Soln (100units/ml) SC SCH ×5 (06:00→23:29)
[2017-05-09] MEDS: FREE WATER GT SCH ×5 (06:23→23:29)
[2017-05-09] MEDS: PRO-STAT 64 30ML GT SCH ×3 (06:23→21:30)
[2017-05-09] MEDS: PIPERACILLIN-TAZOB 3.375GM 100 ML IV SCH ×5 (06:23→18:06)
[2017-05-09] MEDS: IPRATROPIUM BROM 0.5 MG/2.5ML INH SOL NEB SCH ×3 (06:55→19:00)
[2017-05-09] MEDS: ALBUTEROL SULF 2.5 MG/0.5ML(0.5%) NEB SOLN NEB SCH ×3 (06:55→19:00)
[2017-05-09] MEDS: SILDENAFIL CITRATE 20 MG TAB PO SCH ×3 (08:13→19:48)
[2017-05-09] MEDS: LEVOTHYROXINE SODIUM 50 MCG TAB PO SCH (08:13)
[2017-05-09 08:30] LABS: Allen Test Modified; Base Excess 4.4 mmol/L (-2.0-2.0); Blood 02Sat 94.3 % (96-100); Blood COHb 0.6 % (0.5-1.5); HCO3 28.1 mmol/L (22-26.0); HHb 5.7 % (0.0-5.0); MODE VENT - PCV; O2Hb 93.7 % (94.0-97.0); PCO2 38.8 mmHg (35.0-45.0); PCO2(T) 38.8 mmHg (35.0-45.0); PIP 26; PO2 73.5 mmHg (80.0-100.0); PO2(T) 73.5 mmHg (80.0-100.0); Sample Type Arterial; pH 7.478 (7.350-7.450)
[2017-05-09] MEDS: POTASSIUM CHL 10% (20 MEQ/15ML) ORAL SOLN GT SCH ×2 (10:11→21:28)
[2017-05-09] MEDS: PANTOPRAZOLE SODIUM 40 MG/10 ML VIAL IV SCH (10:11)
[2017-05-09] MEDS: methylPREDNISolone SOD SUCC 40 MG/ML VL IV SCH ×2 (10:11→21:28)
[2017-05-09] MEDS: ENOXAPARIN SOD 150 MG/1 ML SYRINGE SC SCH (10:12)
[2017-05-09] MEDS: INSULIN DETEMIR(LEVEMIR) 1unit/0.01ml Soln (100units/ml) SC SCH ×2 (10:13→21:26)
[2017-05-09] MEDS: SODIUM CHLOR 0.9% PF (SALINE LOCK) 10ML VIAL IV SCH ×2 (10:14→21:28)
[2017-05-09] MEDS: BUMETANIDE (0.25 MG/ML) INJ 10ML IV SCH ×2 (10:28→21:28)
[2017-05-09] MEDS: MIDAZOLAM DRIP 50 mg/50mL NS 50 ML IV SCH ×4 (12:18→23:32)
[2017-05-09] MEDS ORDERED: DEXTROSE (50%) 50ML SYRG IV PRN (13:00)
[2017-05-09] MEDS ORDERED: AMIKACIN 0 ML IV SCH (13:00)
[2017-05-09] MEDS: D5W 5% IV SCH (15:23)
[2017-05-09] MEDS: fentaNYL Drip 2500mCg/250mlNS 250 ML IV SCH (15:23)
[2017-05-09] MEDS: AMIKACIN IV SCH (15:23)
[2017-05-09] MEDS ORDERED: ENOXAPARIN SOD 150 MG/1 ML SYRINGE SC SCH (22:00)
[2017-05-10] VITALS (97 sets, daily range): BP systolic 83–186; BP diastolic 55–113
[2017-05-10] MEDS: IPRATROPIUM BROM 0.5 MG/2.5ML INH SOL NEB SCH ×4 (00:30→19:16)
[2017-05-10] MEDS: ALBUTEROL SULF 2.5 MG/0.5ML(0.5%) NEB SOLN NEB SCH ×4 (00:30→19:16)
[2017-05-10] MEDS: MIDAZOLAM DRIP 50 mg/50mL NS 50 ML IV SCH ×4 (00:32→17:13)
[2017-05-10] MEDS: fentaNYL Drip 2500mCg/250mlNS 250 ML IV SCH (01:53)
[2017-05-10 02:36] LABS: Basophils # (auto) 0.1 uL; Basophils % (auto) 0.5 % (0.0-2.0); CONDITION Y; Eosinophils # (auto) 0 uL; Eosinophils % (auto) 0.2 % (0.0-7.0); Hematocrit 42.6 % (41.0-53.0); Hemoglobin 13.8 g/dL (13.5-17.5); Lymphocytes # (auto) 1.9 uL; Lymphocytes % (auto) 15.8 % (10.0-50.0); Mean Corpuscular Hemoglobin 31.6 pg (28.0-32.0); Mean Corpuscular Hgb Conc. 32.4 g/dL (32.0-36.0); Mean Corpuscular Volume 97.4 fL (80.0-100.0); Mean Platelet Volume 9.7 fL (7.4-10.4); Monocytes # (auto) 1.1 uL; Monocytes % (auto) 9.7 % (0.0-12.0); Neutrophils # (auto) 8.6 uL; Neutrophils % (auto) 73.8 % (37.0-80.0); Platelet Count (auto) 265 10^3/uL (140-450); Red Cell Distribution Width 15.7 % (11.6-16.0); White Blood Cell 11.7 10^3/uL (4.4-10.8)
[2017-05-10 02:55] LABS: Albumin 2.7 g/dL (3.4-5.0); Potassium 3.9 mmol/L (3.5-5.1)
[2017-05-10 02:57] LABS: Bilirubin, Total 0.4 mg/dL (0.2-1.0)
[2017-05-10] MEDS: PIPERACILLIN-TAZOB 3.375GM 100 ML IV SCH ×3 (05:48→18:00)
[2017-05-10] MEDS: InsuLIN REG 1unit/0.01ml Soln (100units/ml) SC SCH ×3 (05:49→18:00)
[2017-05-10] MEDS: ACCU-CHEK COMFORT CURVE STRIP VI SCH ×3 (05:49→18:00)
[2017-05-10] MEDS: FREE WATER GT SCH ×3 (05:49→18:00)
[2017-05-10] MEDS: PRO-STAT 64 30ML GT SCH ×3 (05:49→22:03)
[2017-05-10] MEDS: LEVOTHYROXINE SODIUM 50 MCG TAB PO SCH (05:51)
[2017-05-10 08:03] LABS: Allen Test Modified; Base Excess 6.4 mmol/L (-2.0-2.0); Blood 02Sat 88.3 % (96-100); Blood COHb 0.8 % (0.5-1.5); Blood MetHb 0.2 % (0.0-1.5); HCO3 31.1 mmol/L (22-26.0); HHb 11.6 % (0.0-5.0); MODE VENT - PCV; O2Hb 87.4 % (94.0-97.0); PCO2 44.4 mmHg (35.0-45.0); PCO2(T) 44.4 mmHg (35.0-45.0); PIP 26; PO2 56.4 mmHg (80.0-100.0); PO2(T) 56.4 mmHg (80.0-100.0); Sample Type Arterial; pH 7.463 (7.350-7.450)
[2017-05-10] MEDS: SILDENAFIL CITRATE 20 MG TAB PO SCH ×3 (08:33→20:49)
[2017-05-10 08:50] LABS: INR 1.09 (0.9-1.15); Prothrombin Time 11.9 sec (9.37-12.3)
[2017-05-10 09:38] LABS: Urine Bilirubin Negative (Negative); Urine Blood Negative /uL (Negative); Urine Color Yellow (Yellow); Urine Glucose Normal (Normal); Urine Ketone Negative (Negative); Urine Nitrite Negative (Negative); Urine RBC <1 /hpf (0 - 3); Urine pH 7.5 (5.0-8.0)
[2017-05-10] MEDS: POTASSIUM CHL 10% (20 MEQ/15ML) ORAL SOLN GT SCH ×2 (10:00→22:19)
[2017-05-10] MEDS: methylPREDNISolone SOD SUCC 40 MG/ML VL IV SCH ×2 (10:00→22:04)
[2017-05-10] MEDS: SODIUM CHLOR 0.9% PF (SALINE LOCK) 10ML VIAL IV SCH ×2 (10:00→22:04)
[2017-05-10] MEDS: BUMETANIDE (0.25 MG/ML) INJ 10ML IV SCH ×2 (10:00→22:04)
[2017-05-10] MEDS: INSULIN DETEMIR(LEVEMIR) 1unit/0.01ml Soln (100units/ml) SC SCH ×2 (10:00→22:15)
[2017-05-10] MEDS: PANTOPRAZOLE SODIUM 40 MG/10 ML VIAL IV SCH (10:00)
[2017-05-10] MEDS ORDERED: fentaNYL CITRATE 5 ML ONE ×2 (11:47→13:26)
[2017-05-10] MEDS ORDERED: HYDROmorphone HCL 2 MG/ML VL ONE ×3 (11:47→13:47)
[2017-05-10] MEDS ORDERED: MIDAZOLAM HCL 1MG/1ML-2 ML VIAL ONE (11:47)
[2017-05-10] MEDS ORDERED: ROCURONIUM 10MG/ML 10ML VIAL IV ONE ×2 (11:47)
[2017-05-10] MEDS ORDERED: SODIUM CHLORIDE LOCK 30 ML ONE (11:48)
[2017-05-10] MEDS ORDERED: HYDROCORTISONE SOD SUCC 100 MG/2ML INJ VIAL ONE (11:48)
[2017-05-10] MEDS ORDERED: LORazepam 2MG/ML-1ML VIAL ONE (12:02)
[2017-05-10] MEDS ORDERED: ceFAZolin 1GM VL ONE ×2 (12:11→13:38)
[2017-05-10] MEDS ORDERED: BUPIVACAINE 0.75% INJ 10ML MPV SDV IJ ONE (13:54)
[2017-05-10] MEDS: AMIKACIN IV SCH (16:00)
[2017-05-10] MEDS: D5W 5% IV SCH (16:00)
[2017-05-10] MEDS: PROPOFOL 100 ML IV SCH (21:12)
[2017-05-11] VITALS (103 sets, daily range): BP systolic 35–272; BP diastolic 28–268
[2017-05-11] MEDS: FREE WATER GT SCH ×4 (00:23→17:29)
[2017-05-11] MEDS: PIPERACILLIN-TAZOB 3.375GM 100 ML IV SCH ×4 (00:23→17:29)
[2017-05-11] MEDS: ALBUTEROL SULF 2.5 MG/0.5ML(0.5%) NEB SOLN NEB SCH ×4 (00:24→18:14)
[2017-05-11] MEDS: IPRATROPIUM BROM 0.5 MG/2.5ML INH SOL NEB SCH ×4 (00:24→18:14)
[2017-05-11 04:13] LABS: Basophils # (auto) 0 uL; CONDITION Y; Eosinophils # (auto) 0.1 uL; Eosinophils % (auto) 0.6 % (0.0-7.0); Hematocrit 42.6 % (41.0-53.0); Lymphocytes # (auto) 0.4 uL; Lymphocytes % (auto) 3.6 % (10.0-50.0); Mean Corpuscular Hemoglobin 31.8 pg (28.0-32.0); Mean Corpuscular Hgb Conc. 32.9 g/dL (32.0-36.0); Mean Corpuscular Volume 96.6 fL (80.0-100.0); Monocytes # (auto) 0.9 uL; Monocytes % (auto) 7.3 % (0.0-12.0); Neutrophils # (auto) 11.1 uL; Neutrophils % (auto) 88.5 % (37.0-80.0); Platelet Count (auto) 312 10^3/uL (140-450); Red Cell Distribution Width 15.5 % (11.6-16.0); SUSPECT SEE PRINTOUT; White Blood Cell 12.5 10^3/uL (4.4-10.8)
[2017-05-11 04:45] LABS: BUN/Creatinine Ratio 32.9; Calcium 8.8 mg/dL (8.5-10.1)
[2017-05-11] MEDS: PRO-STAT 64 30ML GT SCH ×2 (06:11→13:20)
[2017-05-11] MEDS: InsuLIN REG 1unit/0.01ml Soln (100units/ml) SC SCH ×4 (06:18→17:30)
[2017-05-11] MEDS: ACCU-CHEK COMFORT CURVE STRIP VI SCH ×4 (06:18→17:29)
[2017-05-11] MEDS: LEVOTHYROXINE SODIUM 50 MCG TAB PO SCH (06:23)
[2017-05-11] MEDS: SILDENAFIL CITRATE 20 MG TAB PO SCH ×3 (07:55→19:53)
[2017-05-11] MEDS: PROPOFOL 100 ML IV SCH ×3 (07:56→22:20)
[2017-05-11] MEDS: MIDAZOLAM DRIP 50 mg/50mL NS 50 ML IV SCH ×4 (08:01→19:54)
[2017-05-11] MEDS: PANTOPRAZOLE SODIUM 40 MG/10 ML VIAL IV SCH (10:24)
[2017-05-11] MEDS: methylPREDNISolone SOD SUCC 40 MG/ML VL IV SCH ×2 (10:25→22:19)
[2017-05-11] MEDS: POTASSIUM CHL 10% (20 MEQ/15ML) ORAL SOLN GT SCH (10:25)
[2017-05-11] MEDS: INSULIN DETEMIR(LEVEMIR) 1unit/0.01ml Soln (100units/ml) SC SCH ×2 (10:25→22:18)
[2017-05-11] MEDS: SODIUM CHLOR 0.9% PF (SALINE LOCK) 10ML VIAL IV SCH ×2 (10:25→22:19)
[2017-05-11] MEDS: BUMETANIDE (0.25 MG/ML) INJ 10ML IV SCH (10:25)
[2017-05-11 11:15] LABS: Allen Test Yes; Base Excess 6.4 mmol/L (-2.0-2.0); Blood 02Sat 92.1 % (96-100); Blood COHb 0.9 % (0.5-1.5); Blood MetHb 0.3 % (0.0-1.5); HCO3 32.1 mmol/L (22-26.0); HHb 7.8 % (0.0-5.0); MODE VENT - PCV; PCO2 49.3 mmHg (35.0-45.0); PCO2(T) 49.3 mmHg (35.0-45.0); PIP 26; PO2 68.3 mmHg (80.0-100.0); PO2(T) 68.3 mmHg (80.0-100.0); Sample Type Arterial; Spont Vt 783; pH 7.431 (7.350-7.450)
[2017-05-11] MEDS: NOREPINEPHRINE BITARTRATE 250 ML IV SCH (11:16)
[2017-05-11] MEDS: fentaNYL Drip 2500mCg/250mlNS 250 ML IV SCH (14:29)
[2017-05-11] MEDS: D5W 5% IV SCH (15:33)
[2017-05-11] MEDS: AMIKACIN IV SCH (15:33)
[2017-05-12] VITALS (103 sets, daily range): BP systolic 71–178; BP diastolic 40–119
[2017-05-12] MEDS: IPRATROPIUM BROM 0.5 MG/2.5ML INH SOL NEB SCH ×4 (00:08→18:30)
[2017-05-12] MEDS: ALBUTEROL SULF 2.5 MG/0.5ML(0.5%) NEB SOLN NEB SCH ×4 (00:08→18:30)
[2017-05-12] MEDS: fentaNYL Drip 2500mCg/250mlNS 250 ML IV SCH (00:09)
[2017-05-12] MEDS: MIDAZOLAM DRIP 50 mg/50mL NS 50 ML IV SCH ×3 (00:09→10:15)
[2017-05-12] MEDS: PRO-STAT 64 30ML GT SCH ×4 (00:10→22:21)
[2017-05-12] MEDS: FREE WATER GT SCH ×4 (00:10→17:33)
[2017-05-12] MEDS: PIPERACILLIN-TAZOB 3.375GM 100 ML IV SCH ×4 (00:10→17:33)
[2017-05-12] MEDS: InsuLIN REG 1unit/0.01ml Soln (100units/ml) SC SCH ×4 (00:11→17:45)
[2017-05-12] MEDS: ACCU-CHEK COMFORT CURVE STRIP VI SCH ×4 (00:11→17:45)
[2017-05-12] MEDS: PROPOFOL 100 ML IV SCH ×5 (03:11→23:03)
[2017-05-12 04:06] LABS: Basophils # (auto) 0 uL; CONDITION Y; Eosinophils # (auto) 0 uL; Eosinophils % (auto) 0.2 % (0.0-7.0); Hematocrit 45.5 % (41.0-53.0); Hemoglobin 15.2 g/dL (13.5-17.5); Lymphocytes # (auto) 0.8 uL; Lymphocytes % (auto) 6.4 % (10.0-50.0); Mean Corpuscular Hemoglobin 31.9 pg (28.0-32.0); Mean Corpuscular Hgb Conc. 33.5 g/dL (32.0-36.0); Mean Corpuscular Volume 95.2 fL (80.0-100.0); Mean Platelet Volume 9.9 fL (7.4-10.4); Monocytes # (auto) 0.9 uL; Monocytes % (auto) 7.6 % (0.0-12.0); Neutrophils # (auto) 10.4 uL; Neutrophils % (auto) 85.8 % (37.0-80.0); Platelet Count (auto) 309 10^3/uL (140-450); Red Cell Distribution Width 15.4 % (11.6-16.0); SUSPECT SEE PRINTOUT; White Blood Cell 12.1 10^3/uL (4.4-10.8)
[2017-05-12 04:33] LABS: Potassium 3.9 mmol/L (3.5-5.1)
[2017-05-12 04:41] LABS: Albumin 2.8 g/dL (3.4-5.0); BUN/Creatinine Ratio 35.9; Bilirubin, Total 0.7 mg/dL (0.2-1.0); Calcium 9.2 mg/dL (8.5-10.1); Total Protein 7.5 g/dL (6.4-8.2)
[2017-05-12] MEDS: LEVOTHYROXINE SODIUM 50 MCG TAB PO SCH (06:46)
[2017-05-12 07:59] LABS: Allen Test Modified; Base Excess 5.8 mmol/L (-2.0-2.0); Blood 02Sat 91.7 % (96-100); Blood COHb 0.9 % (0.5-1.5); Blood MetHb 0.2 % (0.0-1.5); HCO3 28.8 mmol/L (22-26.0); HHb 8.2 % (0.0-5.0); MODE VENT - PCV; O2Hb 90.7 % (94.0-97.0); PCO2 36.8 mmHg (35.0-45.0); PCO2(T) 36.8 mmHg (35.0-45.0); PIP 26; PO2 65.4 mmHg (80.0-100.0); PO2(T) 65.4 mmHg (80.0-100.0); Sample Type Arterial; pH 7.512 (7.350-7.450)
[2017-05-12] MEDS: SILDENAFIL CITRATE 20 MG TAB PO SCH ×3 (08:39→19:58)
[2017-05-12] MEDS ORDERED: ENOXAPARIN SOD 40 MG/0.4 ML SYRINGE SC SCH (10:00)
[2017-05-12] MEDS: methylPREDNISolone SOD SUCC 40 MG/ML VL IV SCH ×2 (10:14→22:20)
[2017-05-12] MEDS: PANTOPRAZOLE SODIUM 40 MG/10 ML VIAL IV SCH (10:14)
[2017-05-12] MEDS: BUMETANIDE (0.25 MG/ML) INJ 10ML IV SCH (10:14)
[2017-05-12] MEDS: POTASSIUM CHL 10% (20 MEQ/15ML) ORAL SOLN GT SCH (10:16)
[2017-05-12] MEDS: SODIUM CHLOR 0.9% PF (SALINE LOCK) 10ML VIAL IV SCH ×2 (10:17→22:20)
[2017-05-12] MEDS: INSULIN DETEMIR(LEVEMIR) 1unit/0.01ml Soln (100units/ml) SC SCH ×2 (10:17→22:22)
[2017-05-12] MEDS ORDERED: ENOXAPARIN SOD 100 MG/1 ML SYRINGE SC ONE (10:30)
[2017-05-12] MEDS: NOREPINEPHRINE BITARTRATE 250 ML IV SCH (10:34)
[2017-05-12] MEDS ORDERED: NITROGLYCERIN 0.4 MG SL TAB SL PRN (16:45)
[2017-05-12] MEDS ORDERED: ONDANSETRON HCL 4 MG/2 ML VIAL IV PRN (16:45)
[2017-05-12] MEDS: ENOXAPARIN SOD 150 MG/1 ML SYRINGE SC SCH (22:20)
[2017-05-13] VITALS (100 sets, daily range): BP systolic 80–190; BP diastolic 34–110
[2017-05-13] MEDS: IPRATROPIUM BROM 0.5 MG/2.5ML INH SOL NEB SCH ×4 (00:06→18:14)
[2017-05-13] MEDS: ALBUTEROL SULF 2.5 MG/0.5ML(0.5%) NEB SOLN NEB SCH ×4 (00:06→18:15)
[2017-05-13] MEDS: PIPERACILLIN-TAZOB 3.375GM 100 ML IV SCH ×2 (00:13→06:06)
[2017-05-13] MEDS: MIDAZOLAM DRIP 50 mg/50mL NS 50 ML IV SCH ×7 (00:14→23:35)
[2017-05-13] MEDS: fentaNYL Drip 2500mCg/250mlNS 250 ML IV SCH ×2 (00:14→11:08)
[2017-05-13] MEDS: InsuLIN REG 1unit/0.01ml Soln (100units/ml) SC SCH ×5 (00:30→23:58)
[2017-05-13] MEDS: ACCU-CHEK COMFORT CURVE STRIP VI SCH ×5 (00:31→23:58)
[2017-05-13] MEDS: FREE WATER GT SCH ×5 (00:31→23:58)
[2017-05-13 03:42] LABS: Basophils # (auto) 0 uL; Basophils % (auto) 0.1 % (0.0-2.0); CONDITION Y; Eosinophils # (auto) 0.1 uL; Eosinophils % (auto) 0.6 % (0.0-7.0); Hematocrit 41.9 % (41.0-53.0); Hemoglobin 13.8 g/dL (13.5-17.5); Lymphocytes # (auto) 1.1 uL; Lymphocytes % (auto) 8.2 % (10.0-50.0); Mean Corpuscular Hemoglobin 31.8 pg (28.0-32.0); Mean Corpuscular Hgb Conc. 32.8 g/dL (32.0-36.0); Mean Corpuscular Volume 96.9 fL (80.0-100.0); Mean Platelet Volume 9.7 fL (7.4-10.4); Monocytes # (auto) 0.8 uL; Monocytes % (auto) 6.5 % (0.0-12.0); Neutrophils # (auto) 10.9 uL; Neutrophils % (auto) 84.6 % (37.0-80.0); Platelet Count (auto) 309 10^3/uL (140-450); Red Cell Distribution Width 15.4 % (11.6-16.0); SUSPECT SEE PRINTOUT; White Blood Cell 12.9 10^3/uL (4.4-10.8)
[2017-05-13 03:57] LABS: Calcium 7.9 mg/dL (8.5-10.1); Potassium 3.5 mmol/L (3.5-5.1)
[2017-05-13 04:00] LABS: Albumin 2.3 g/dL (3.4-5.0)
[2017-05-13 04:03] LABS: Bilirubin, Total 0.6 mg/dL (0.2-1.0); Total Protein 6.3 g/dL (6.4-8.2)
[2017-05-13] MEDS: D5W 5% IV SCH (04:04)
[2017-05-13] MEDS: PROPOFOL 100 ML IV SCH ×4 (04:04→18:56)
[2017-05-13] MEDS: AMIKACIN IV SCH (04:04)
[2017-05-13] MEDS: PRO-STAT 64 30ML GT SCH ×3 (06:04→21:33)
[2017-05-13] MEDS: LEVOTHYROXINE SODIUM 50 MCG TAB PO SCH (07:09)
[2017-05-13 07:13] LABS: Allen Test Modified; Base Excess -0.7 mmol/L (-2.0-2.0); Blood 02Sat 94.2 % (96-100); Blood COHb 0.9 % (0.5-1.5); Blood MetHb 0.2 % (0.0-1.5); HCO3 20.9 mmol/L (22-26.0); HHb 5.7 % (0.0-5.0); MODE VENT - PCV; O2Hb 93.2 % (94.0-97.0); PCO2 27.1 mmHg (35.0-45.0); PCO2(T) 27.1 mmHg (35.0-45.0); PIP 26; PO2 75.7 mmHg (80.0-100.0); PO2(T) 75.7 mmHg (80.0-100.0); Sample Type Arterial; Spont Vt 811; pH 7.505 (7.350-7.450)
[2017-05-13] MEDS: POTASSIUM CHL 10% (20 MEQ/15ML) ORAL SOLN GT SCH (10:00)
[2017-05-13] MEDS: NOREPINEPHRINE BITARTRATE 250 ML IV SCH (10:34)
[2017-05-13] MEDS: SILDENAFIL CITRATE 20 MG TAB PO SCH ×3 (10:57→19:47)
[2017-05-13] MEDS: BUMETANIDE (0.25 MG/ML) INJ 10ML IV SCH (10:58)
[2017-05-13] MEDS: PANTOPRAZOLE SODIUM 40 MG/10 ML VIAL IV SCH (10:58)
[2017-05-13] MEDS: methylPREDNISolone SOD SUCC 40 MG/ML VL IV SCH ×2 (10:58→21:32)
[2017-05-13] MEDS: ENOXAPARIN SOD 150 MG/1 ML SYRINGE SC SCH ×2 (10:59→21:32)
[2017-05-13] MEDS: SODIUM CHLOR 0.9% PF (SALINE LOCK) 10ML VIAL IV SCH ×2 (10:59→21:32)
[2017-05-13] MEDS: INSULIN DETEMIR(LEVEMIR) 1unit/0.01ml Soln (100units/ml) SC SCH ×2 (10:59→21:28)
[2017-05-13] MEDS: CeftoloZANE-TAZOB 1g/0.5g in D5W 5% 100 ML IV SCH ×2 (14:00→21:32)
[2017-05-13] MEDS ORDERED: CeftoloZANE-TAZOB 0.75 GM in D5W 5% 100 ML IV SCH (14:00)
[2017-05-13] MEDS ORDERED: CeftoloZANE-TAZOB 0.375 GM in D5W 5% 100 ML IV SCH (14:00)
[2017-05-14] VITALS (106 sets, daily range): BP systolic 0–195; BP diastolic 0–112
[2017-05-14] MEDS: ALBUTEROL SULF 2.5 MG/0.5ML(0.5%) NEB SOLN NEB SCH ×4 (00:05→18:26)
[2017-05-14] MEDS: IPRATROPIUM BROM 0.5 MG/2.5ML INH SOL NEB SCH ×4 (00:05→18:26)
[2017-05-14] MEDS: PROPOFOL 100 ML IV SCH ×3 (00:33→10:24)
[2017-05-14] MEDS: MIDAZOLAM DRIP 50 mg/50mL NS 50 ML IV SCH ×3 (03:24→10:22)
[2017-05-14 03:52] LABS: Basophils # (auto) 0 uL; Basophils % (auto) 0.1 % (0.0-2.0); CONDITION Y; Eosinophils # (auto) 0 uL; Eosinophils % (auto) 0.1 % (0.0-7.0); Hematocrit 44.2 % (41.0-53.0); Hemoglobin 14.4 g/dL (13.5-17.5); Lymphocytes # (auto) 1.2 uL; Lymphocytes % (auto) 8.5 % (10.0-50.0); Mean Corpuscular Hemoglobin 31.6 pg (28.0-32.0); Mean Corpuscular Hgb Conc. 32.6 g/dL (32.0-36.0); Mean Corpuscular Volume 96.8 fL (80.0-100.0); Mean Platelet Volume 9.8 fL (7.4-10.4); Monocytes # (auto) 0.8 uL; Monocytes % (auto) 5.4 % (0.0-12.0); Neutrophils % (auto) 85.9 % (37.0-80.0); Platelet Count (auto) 339 10^3/uL (140-450); Red Cell Distribution Width 15.5 % (11.6-16.0); SUSPECT SEE PRINTOUT; White Blood Cell 13.9 10^3/uL (4.4-10.8)
[2017-05-14 04:22] LABS: Albumin 2.6 g/dL (3.4-5.0); Bilirubin, Total 0.5 mg/dL (0.2-1.0); Potassium 3.8 mmol/L (3.5-5.1); Total Protein 6.4 g/dL (6.4-8.2)
[2017-05-14] MEDS: ACCU-CHEK COMFORT CURVE STRIP VI SCH ×3 (05:42→18:16)
[2017-05-14] MEDS: InsuLIN REG 1unit/0.01ml Soln (100units/ml) SC SCH ×3 (05:42→18:16)
[2017-05-14] MEDS: LEVOTHYROXINE SODIUM 50 MCG TAB PO SCH (06:03)
[2017-05-14] MEDS: FREE WATER GT SCH ×3 (06:04→18:16)
[2017-05-14] MEDS: PRO-STAT 64 30ML GT SCH ×3 (06:04→22:00)
[2017-05-14] MEDS: CeftoloZANE-TAZOB 1g/0.5g in D5W 5% 100 ML IV SCH ×3 (06:43→22:00)
[2017-05-14] MEDS: METOCLOPRAMIDE HCL 5MG/ml INJ 2ml VIAL IV PRN (06:55)
[2017-05-14 08:23] LABS: Allen Test Yes; Base Excess 5.1 mmol/L (-2.0-2.0); Blood 02Sat 90.5 % (96-100); Blood MetHb 0.2 % (0.0-1.5); HCO3 26.7 mmol/L (22-26.0); HHb 9.4 % (0.0-5.0); MODE VENT - PCV; O2Hb 89.4 % (94.0-97.0); PCO2 30.9 mmHg (35.0-45.0); PCO2(T) 30.9 mmHg (35.0-45.0); PO2 58.5 mmHg (80.0-100.0); PO2(T) 58.5 mmHg (80.0-100.0); Sample Type Arterial; pH 7.555 (7.350-7.450)
[2017-05-14] MEDS: fentaNYL Drip 2500mCg/250mlNS 250 ML IV SCH (10:22)
[2017-05-14] MEDS: BUMETANIDE (0.25 MG/ML) INJ 10ML IV SCH (10:22)
[2017-05-14] MEDS: SODIUM CHLOR 0.9% PF (SALINE LOCK) 10ML VIAL IV SCH ×2 (10:23→22:00)
[2017-05-14] MEDS: PANTOPRAZOLE SODIUM 40 MG/10 ML VIAL IV SCH (10:23)
[2017-05-14] MEDS: methylPREDNISolone SOD SUCC 40 MG/ML VL IV SCH ×2 (10:23→22:00)
[2017-05-14] MEDS: ENOXAPARIN SOD 150 MG/1 ML SYRINGE SC SCH ×2 (10:23→22:00)
[2017-05-14] MEDS: POTASSIUM CHL 10% (20 MEQ/15ML) ORAL SOLN GT SCH (10:23)
[2017-05-14] MEDS: SILDENAFIL CITRATE 20 MG TAB PO SCH ×3 (10:23→20:00)
[2017-05-14] MEDS: INSULIN DETEMIR(LEVEMIR) 1unit/0.01ml Soln (100units/ml) SC SCH ×2 (10:24→22:00)
[2017-05-14] MEDS: NOREPINEPHRINE BITARTRATE 250 ML IV SCH (10:34)
[2017-05-14] MEDS ORDERED: LACTULOSE 20Gm/30ML SOLN NG ONE (11:15)
[2017-05-14 13:14] LABS: Allen Test Yes; Base Excess 2.2 mmol/L (-2.0-2.0); Blood 02Sat 92.2 % (96-100); Blood COHb 0.9 % (0.5-1.5); Blood MetHb 0.4 % (0.0-1.5); HCO3 27.8 mmol/L (22-26.0); HHb 7.7 % (0.0-5.0); MODE VENT - PCV; PCO2 46.7 mmHg (35.0-45.0); PCO2(T) 46.7 mmHg (35.0-45.0); PIP 24; PO2 74.4 mmHg (80.0-100.0); PO2(T) 74.4 mmHg (80.0-100.0); Sample Type Arterial; pH 7.393 (7.350-7.450)
[2017-05-14] MEDS: D5W 5% IV SCH (16:00)
[2017-05-14] MEDS: AMIKACIN IV SCH (16:00)
[2017-05-14] MEDS: LACTULOSE 20Gm/30ML SOLN NG SCH (22:00)
[2017-05-15] VITALS (103 sets, daily range): BP systolic 70–236; BP diastolic 47–165
[2017-05-15] MEDS: FREE WATER GT SCH ×4 (00:17→17:47)
[2017-05-15] MEDS: ALBUTEROL SULF 2.5 MG/0.5ML(0.5%) NEB SOLN NEB SCH ×4 (00:27→18:54)
[2017-05-15] MEDS: IPRATROPIUM BROM 0.5 MG/2.5ML INH SOL NEB SCH ×4 (00:27→18:54)
[2017-05-15] MEDS: PRO-STAT 64 30ML GT SCH ×3 (06:00→21:49)
[2017-05-15] MEDS: ACCU-CHEK COMFORT CURVE STRIP VI SCH ×3 (06:00→18:02)
[2017-05-15] MEDS: CeftoloZANE-TAZOB 1g/0.5g in D5W 5% 100 ML IV SCH ×3 (06:00→22:00)
[2017-05-15] MEDS: InsuLIN REG 1unit/0.01ml Soln (100units/ml) SC SCH ×4 (06:00→18:02)
[2017-05-15] MEDS: LEVOTHYROXINE SODIUM 50 MCG TAB PO SCH (08:30)
[2017-05-15] MEDS: SILDENAFIL CITRATE 20 MG TAB PO SCH ×3 (08:30→19:36)
[2017-05-15 08:57] LABS: Albumin 2.7 g/dL (3.4-5.0); BUN/Creatinine Ratio 39.1; Bilirubin, Total 0.5 mg/dL (0.2-1.0); Calcium 9.2 mg/dL (8.5-10.1); Potassium 4.2 mmol/L (3.5-5.1); Total Protein 6.7 g/dL (6.4-8.2)
[2017-05-15 08:59] LABS: Allen Test Modified; Base Excess 0.7 mmol/L (-2.0-2.0); Blood 02Sat 88.1 % (96-100); Blood COHb 1.2 % (0.5-1.5); Blood MetHb 0.2 % (0.0-1.5); HCO3 25.6 mmol/L (22-26.0); HHb 11.7 % (0.0-5.0); MODE VENT - PCV; O2Hb 86.9 % (94.0-97.0); PCO2 41.8 mmHg (35.0-45.0); PCO2(T) 41.8 mmHg (35.0-45.0); PIP 31; PO2 60.2 mmHg (80.0-100.0); PO2(T) 60.2 mmHg (80.0-100.0); Sample Type Arterial; Spont Vt 797; pH 7.405 (7.350-7.450)
[2017-05-15] MEDS: PROPOFOL 100 ML IV SCH (10:00)
[2017-05-15] MEDS: INSULIN DETEMIR(LEVEMIR) 1unit/0.01ml Soln (100units/ml) SC SCH ×2 (10:00→22:00)
[2017-05-15] MEDS: POTASSIUM CHL 10% (20 MEQ/15ML) ORAL SOLN GT SCH (10:00)
[2017-05-15] MEDS: methylPREDNISolone SOD SUCC 40 MG/ML VL IV SCH ×2 (10:00→22:00)
[2017-05-15] MEDS: BUMETANIDE (0.25 MG/ML) INJ 10ML IV SCH (10:00)
[2017-05-15] MEDS: SODIUM CHLOR 0.9% PF (SALINE LOCK) 10ML VIAL IV SCH ×2 (10:00→22:21)
[2017-05-15] MEDS: LACTULOSE 20Gm/30ML SOLN NG SCH (10:00)
[2017-05-15] MEDS: PANTOPRAZOLE SODIUM 40 MG/10 ML VIAL IV SCH (10:00)
[2017-05-15] MEDS: MIDAZOLAM DRIP 50 mg/50mL NS 50 ML IV SCH (10:00)
[2017-05-15] MEDS: ENOXAPARIN SOD 150 MG/1 ML SYRINGE SC SCH ×2 (10:00→22:00)
[2017-05-15] MEDS ORDERED: AMIKACIN 0 ML IV SCH (11:15)
[2017-05-15] MEDS ORDERED: METOCLOPRAMIDE HCL 5MG/ml INJ 2ml VIAL IV PRN (11:15)
[2017-05-15] MEDS: fentaNYL Drip 2500mCg/250mlNS 250 ML IV SCH (11:23)
[2017-05-15] MEDS ORDERED: MIDAZOLAM DRIP 50 mg/50mL NS 50 ML IV SCH (11:30)
[2017-05-15] MEDS ORDERED: InsuLIN REG 1unit/0.01ml Soln (100units/ml) ONE (12:09)
[2017-05-15] MEDS ORDERED: DEXTROSE (50%) 50ML SYRG IV PRN (12:15)
[2017-05-15] MEDS: CIPROFLOXACIN 0.3%OPTH(EYE) SOL 5ML RIGHTEYE SCH ×3 (14:00→22:00)
[2017-05-15 14:04] LABS: Allen Test Modified; Base Excess -1.8 mmol/L (-2.0-2.0); Blood 02Sat 88.2 % (96-100); Blood COHb 0.9 % (0.5-1.5); Blood MetHb 0.3 % (0.0-1.5); HCO3 22.9 mmol/L (22-26.0); HHb 11.7 % (0.0-5.0); MODE VENT - CPAP; O2Hb 87.1 % (94.0-97.0); PIP 14; PO2 60.1 mmHg (80.0-100.0); PO2(T) 60.1 mmHg (80.0-100.0); Pressure Support 8; Sample Type Arterial; Spont Vt 570; pH 7.387 (7.350-7.450)
[2017-05-15] MEDS: POTASSIUM CHL 20MEQ/100ML 100 ML IV SCH ×2 (15:15→17:15)
[2017-05-15] MEDS ORDERED: BUMETANIDE (0.25MG/ML) 4 ML VIAL IV ONE (15:15)
[2017-05-15] MEDS ORDERED: POTASSIUM CHL 20MEQ/100ML 100 ML IV ONE (15:50)
[2017-05-15] MEDS ORDERED: ENALAPRILAT 1.25 MG/ML-1ML VIAL IV ONE (17:55)
[2017-05-15] MEDS ORDERED: NITROGLYCERIN 2% OINT 1GM PKG TD ONE (18:00)
[2017-05-15] MEDS ORDERED: NITROGLYCERIN 2% OINT 1GM PKG TD PRN (19:15)
[2017-05-15] MEDS: ENALAPRILAT 1.25 MG/ML-1ML VIAL IV PRN (19:34)
[2017-05-15] MEDS: MORPHINE SULFATE 4 MG/ML SYRG IV PRN (19:50)
[2017-05-15] MEDS ORDERED: hydrALAZINE HCL 20 MG/ML VL ONE (20:20)
[2017-05-15] MEDS ORDERED: hydrALAZINE HCL 20 MG/ML VL IV PRN (20:30)
[2017-05-15] MEDS ORDERED: LORazepam 2MG/ML-1ML VIAL ONE (21:17)
[2017-05-15] MEDS: NICARDIPINE 25MG/250ML BAG KIT 250 ML IV SCH (21:53)
[2017-05-15] MEDS ORDERED: NICARDIPINE 25MG/250ML BAG KIT 250 ML IV ONE (22:07)
[2017-05-16] VITALS (97 sets, daily range): BP systolic 37–198; BP diastolic 19–127
[2017-05-16] MEDS: ACCU-CHEK COMFORT CURVE STRIP VI SCH ×4 (00:11→17:52)
[2017-05-16] MEDS: FREE WATER GT SCH ×2 (00:12→05:33)
[2017-05-16] MEDS: IPRATROPIUM BROM 0.5 MG/2.5ML INH SOL NEB SCH ×3 (00:12→19:02)
[2017-05-16] MEDS: ALBUTEROL SULF 2.5 MG/0.5ML(0.5%) NEB SOLN NEB SCH ×3 (00:12→19:02)
[2017-05-16] MEDS: LORazepam 2MG/ML-1ML VIAL IV PRN ×2 (01:39→10:07)
[2017-05-16] MEDS: CIPROFLOXACIN 0.3%OPTH(EYE) SOL 5ML RIGHTEYE SCH ×6 (02:21→22:00)
[2017-05-16] MEDS: NICARDIPINE 25MG/250ML BAG KIT 250 ML IV SCH ×5 (02:53→15:28)
[2017-05-16] MEDS: AMIKACIN IV SCH (04:00)
[2017-05-16] MEDS: D5W 5% IV SCH (04:00)
[2017-05-16 04:11] LABS: Basophils # (auto) 0 uL; CONDITION Y; Eosinophils # (auto) 0 uL; Eosinophils % (auto) 0.1 % (0.0-7.0); Hematocrit 48.3 % (41.0-53.0); Hemoglobin 15.8 g/dL (13.5-17.5); Lymphocytes # (auto) 0.6 uL; Lymphocytes % (auto) 3.1 % (10.0-50.0); Mean Corpuscular Hemoglobin 31.6 pg (28.0-32.0); Mean Corpuscular Hgb Conc. 32.7 g/dL (32.0-36.0); Mean Corpuscular Volume 96.7 fL (80.0-100.0); Mean Platelet Volume 10.1 fL (7.4-10.4); Monocytes # (auto) 1.3 uL; Monocytes % (auto) 6.5 % (0.0-12.0); Neutrophils # (auto) 17.5 uL; Neutrophils % (auto) 90.3 % (37.0-80.0); Platelet Count (auto) 382 10^3/uL (140-450); SUSPECT SEE PRINTOUT; White Blood Cell 19.4 10^3/uL (4.4-10.8)
[2017-05-16] MEDS: PRO-STAT 64 30ML GT SCH ×3 (05:33→22:00)
[2017-05-16] MEDS: InsuLIN REG 1unit/0.01ml Soln (100units/ml) SC SCH ×3 (06:00→17:52)
[2017-05-16] MEDS: CeftoloZANE-TAZOB 1g/0.5g in D5W 5% 100 ML IV SCH ×4 (06:10→22:00)
[2017-05-16 06:19] LABS: BUN/Creatinine Ratio 31.9; Calcium 9.4 mg/dL (8.5-10.1); Potassium 3.6 mmol/L (3.5-5.1)
[2017-05-16] MEDS: LEVOTHYROXINE SODIUM 50 MCG TAB PO SCH (06:47)
[2017-05-16] MEDS: SILDENAFIL CITRATE 20 MG TAB PO SCH ×3 (07:40→20:00)
[2017-05-16 07:41] LABS: Base Excess 5.4 mmol/L (-2.0-2.0); Blood 02Sat 92.3 % (96-100); Blood COHb 1.1 % (0.5-1.5); Blood MetHb 0.4 % (0.0-1.5); HCO3 28.8 mmol/L (22-26.0); HHb 7.6 % (0.0-5.0); MODE MASK - BIPAP; O2Hb 90.9 % (94.0-97.0); PIP 14; PO2 66.5 mmHg (80.0-100.0); PO2(T) 66.5 mmHg (80.0-100.0); Sample Type Arterial; Spont Vt 528; pH 7.497 (7.350-7.450)
[2017-05-16] MEDS: POTASSIUM CHL 10% (20 MEQ/15ML) ORAL SOLN GT SCH (09:35)
[2017-05-16] MEDS: SODIUM CHLOR 0.9% PF (SALINE LOCK) 10ML VIAL IV SCH ×2 (09:36→22:00)
[2017-05-16] MEDS: ENOXAPARIN SOD 150 MG/1 ML SYRINGE SC SCH ×2 (09:36→22:00)
[2017-05-16] MEDS: PANTOPRAZOLE SODIUM 40 MG/10 ML VIAL IV SCH (09:36)
[2017-05-16] MEDS: BUMETANIDE (0.25 MG/ML) INJ 10ML IV SCH (09:36)
[2017-05-16] MEDS: methylPREDNISolone SOD SUCC 40 MG/ML VL IV SCH ×2 (09:36→22:00)
[2017-05-16] MEDS: INSULIN DETEMIR(LEVEMIR) 1unit/0.01ml Soln (100units/ml) SC SCH ×2 (09:37→22:00)
[2017-05-16] MEDS ORDERED: HALOPERIDOL LACTATE 5 MG/ML INJ VIAL IM PRN (11:00)
[2017-05-16] MEDS ORDERED: HALOPERIDOL LACTATE 5 MG/ML INJ VIAL ONE (11:02)
[2017-05-16] MEDS: fentaNYL Drip 2500mCg/250mlNS 250 ML IV SCH ×2 (14:17→15:29)
[2017-05-17] VITALS (95 sets, daily range): BP systolic 97–192; BP diastolic 56–125
[2017-05-17] MEDS: CIPROFLOXACIN 0.3%OPTH(EYE) SOL 5ML RIGHTEYE SCH ×6 (02:00→21:58)
[2017-05-17 03:35] LABS: Basophils # (auto) 0 uL; Basophils % (auto) 0.1 % (0.0-2.0); CONDITION Y; Eosinophils # (auto) 0 uL; Hematocrit 48.2 % (41.0-53.0); Hemoglobin 15.7 g/dL (13.5-17.5); Lymphocytes # (auto) 0.5 uL; Lymphocytes % (auto) 2.9 % (10.0-50.0); Mean Corpuscular Hemoglobin 31.6 pg (28.0-32.0); Mean Corpuscular Hgb Conc. 32.6 g/dL (32.0-36.0); Mean Corpuscular Volume 97.1 fL (80.0-100.0); Mean Platelet Volume 9.6 fL (7.4-10.4); Monocytes # (auto) 0.4 uL; Monocytes % (auto) 2.4 % (0.0-12.0); Neutrophils # (auto) 17.4 uL; Neutrophils % (auto) 94.6 % (37.0-80.0); Platelet Count (auto) 368 10^3/uL (140-450); Red Cell Distribution Width 15.5 % (11.6-16.0); White Blood Cell 18.4 10^3/uL (4.4-10.8)
[2017-05-17 03:47] LABS: BUN/Creatinine Ratio 31.6; Calcium 9.5 mg/dL (8.5-10.1); Potassium 4.2 mmol/L (3.5-5.1)
[2017-05-17] MEDS: NICARDIPINE 25MG/250ML BAG KIT 250 ML IV SCH ×5 (03:53→23:53)
[2017-05-17] MEDS: AMIKACIN 1,500 MG in D5W 5% 250 ML IV SCH (04:00)
[2017-05-17] MEDS: InsuLIN REG 1unit/0.01ml Soln (100units/ml) SC SCH ×4 (05:59→18:03)
[2017-05-17] MEDS: PRO-STAT 64 30ML GT SCH ×3 (05:59→21:58)
[2017-05-17] MEDS: ACCU-CHEK COMFORT CURVE STRIP VI SCH ×4 (06:05→18:03)
[2017-05-17] MEDS: LEVOTHYROXINE SODIUM 50 MCG TAB PO SCH (06:08)
[2017-05-17] MEDS: CeftoloZANE-TAZOB 1g/0.5g in D5W 5% 100 ML IV SCH ×3 (06:09→21:58)
[2017-05-17] MEDS: IPRATROPIUM BROM 0.5 MG/2.5ML INH SOL NEB SCH ×4 (06:53→19:38)
[2017-05-17] MEDS: ALBUTEROL SULF 2.5 MG/0.5ML(0.5%) NEB SOLN NEB SCH ×4 (06:53→19:38)
[2017-05-17] MEDS: SILDENAFIL CITRATE 20 MG TAB PO SCH ×3 (07:33→19:41)
[2017-05-17 07:51] LABS: Allen Test Yes; Base Excess 5.3 mmol/L (-2.0-2.0); Blood 02Sat 93.3 % (96-100); Blood COHb 1.1 % (0.5-1.5); Blood MetHb 0.5 % (0.0-1.5); HCO3 29.5 mmol/L (22-26.0); HHb 6.6 % (0.0-5.0); MODE HIGH FLOW; O2Hb 91.8 % (94.0-97.0); PCO2 41.7 mmHg (35.0-45.0); PCO2(T) 41.7 mmHg (35.0-45.0); PO2 67.9 mmHg (80.0-100.0); PO2(T) 67.9 mmHg (80.0-100.0); Sample Type Arterial; pH 7.468 (7.350-7.450)
[2017-05-17] MEDS: PANTOPRAZOLE SODIUM 40 MG/10 ML VIAL IV SCH (09:32)
[2017-05-17] MEDS: BUMETANIDE (0.25 MG/ML) INJ 10ML IV SCH (09:32)
[2017-05-17] MEDS: POTASSIUM CHL 10% (20 MEQ/15ML) ORAL SOLN GT SCH (09:32)
[2017-05-17] MEDS: methylPREDNISolone SOD SUCC 40 MG/ML VL IV SCH ×2 (09:33→21:58)
[2017-05-17] MEDS: SODIUM CHLOR 0.9% PF (SALINE LOCK) 10ML VIAL IV SCH ×2 (09:33→21:58)
[2017-05-17] MEDS: ENOXAPARIN SOD 150 MG/1 ML SYRINGE SC SCH ×2 (09:33→22:26)
[2017-05-17] MEDS: INSULIN DETEMIR(LEVEMIR) 1unit/0.01ml Soln (100units/ml) SC SCH ×2 (09:34→22:26)
[2017-05-17] MEDS: METOPROLOL TARTRATE 25 MG TAB PO SCH ×2 (12:19→21:58)
[2017-05-17] MEDS: fentaNYL Drip 2500mCg/250mlNS 250 ML IV SCH (14:17)
[2017-05-17] MEDS: ENALAPRILAT 1.25 MG/ML-1ML VIAL IV PRN (19:44)
[2017-05-18] VITALS (84 sets, daily range): BP systolic 93–182; BP diastolic 49–115
[2017-05-18] MEDS: ACCU-CHEK COMFORT CURVE STRIP VI SCH ×5 (00:07→23:58)
[2017-05-18] MEDS: InsuLIN REG 1unit/0.01ml Soln (100units/ml) SC SCH ×5 (00:07→23:58)
[2017-05-18] MEDS: IPRATROPIUM BROM 0.5 MG/2.5ML INH SOL NEB SCH ×4 (01:20→19:07)
[2017-05-18] MEDS: ALBUTEROL SULF 2.5 MG/0.5ML(0.5%) NEB SOLN NEB SCH ×4 (01:20→19:07)
[2017-05-18] MEDS: CIPROFLOXACIN 0.3%OPTH(EYE) SOL 5ML RIGHTEYE SCH ×6 (01:54→21:22)
[2017-05-18] MEDS: AMIKACIN 1,500 MG in D5W 5% 250 ML IV SCH (04:03)
[2017-05-18 04:35] LABS: Basophils # (auto) 0 uL; CONDITION Y; Eosinophils # (auto) 0 uL; Hematocrit 47.5 % (41.0-53.0); Hemoglobin 15.8 g/dL (13.5-17.5); Lymphocytes # (auto) 0.8 uL; Lymphocytes % (auto) 4.7 % (10.0-50.0); Mean Corpuscular Hemoglobin 32.3 pg (28.0-32.0); Mean Corpuscular Hgb Conc. 33.3 g/dL (32.0-36.0); Mean Corpuscular Volume 96.8 fL (80.0-100.0); Mean Platelet Volume 9.4 fL (7.4-10.4); Monocytes # (auto) 0.8 uL; Monocytes % (auto) 4.8 % (0.0-12.0); Neutrophils # (auto) 15.6 uL; Neutrophils % (auto) 90.5 % (37.0-80.0); Platelet Count (auto) 362 10^3/uL (140-450); Red Cell Distribution Width 15.4 % (11.6-16.0); White Blood Cell 17.3 10^3/uL (4.4-10.8)
[2017-05-18] MEDS: NICARDIPINE 25MG/250ML BAG KIT 250 ML IV SCH ×3 (04:53→14:53)
[2017-05-18] MEDS: CeftoloZANE-TAZOB 1g/0.5g in D5W 5% 100 ML IV SCH ×3 (05:33→21:27)
[2017-05-18] MEDS: PRO-STAT 64 30ML GT SCH ×3 (05:33→21:20)
[2017-05-18] MEDS: LEVOTHYROXINE SODIUM 50 MCG TAB PO SCH (06:45)
[2017-05-18] MEDS: SILDENAFIL CITRATE 20 MG TAB PO SCH ×3 (08:00→20:00)
[2017-05-18] MEDS: POTASSIUM CHL 10% (20 MEQ/15ML) ORAL SOLN GT SCH (10:40)
[2017-05-18] MEDS: BUMETANIDE (0.25 MG/ML) INJ 10ML IV SCH (10:41)
[2017-05-18] MEDS: PANTOPRAZOLE SODIUM 40 MG/10 ML VIAL IV SCH (10:42)
[2017-05-18] MEDS: SODIUM CHLOR 0.9% PF (SALINE LOCK) 10ML VIAL IV SCH ×2 (10:42→21:20)
[2017-05-18] MEDS: ENOXAPARIN SOD 150 MG/1 ML SYRINGE SC SCH ×2 (10:45→21:28)
[2017-05-18] MEDS: methylPREDNISolone SOD SUCC 40 MG/ML VL IV SCH ×2 (10:45→21:21)
[2017-05-18] MEDS: METOPROLOL TARTRATE 25 MG TAB PO SCH ×2 (10:45→21:21)
[2017-05-18] MEDS: fentaNYL Drip 2500mCg/250mlNS 250 ML IV SCH (14:17)
[2017-05-18] MEDS: INSULIN DETEMIR(LEVEMIR) 1unit/0.01ml Soln (100units/ml) SC SCH ×2 (15:28→21:29)
[2017-05-19] VITALS (77 sets, daily range): BP systolic 113–179; BP diastolic 55–106
[2017-05-19] MEDS: IPRATROPIUM BROM 0.5 MG/2.5ML INH SOL NEB SCH ×4 (00:38→19:19)
[2017-05-19] MEDS: ALBUTEROL SULF 2.5 MG/0.5ML(0.5%) NEB SOLN NEB SCH ×4 (00:38→19:19)
[2017-05-19] MEDS: CIPROFLOXACIN 0.3%OPTH(EYE) SOL 5ML RIGHTEYE SCH ×6 (02:00→22:17)
[2017-05-19] MEDS: AMIKACIN 1,500 MG in D5W 5% 250 ML IV SCH (04:00)
[2017-05-19 04:11] LABS: Basophils # (auto) 0 uL; CONDITION Y; Eosinophils # (auto) 0 uL; Hematocrit 49.8 % (41.0-53.0); Hemoglobin 16.5 g/dL (13.5-17.5); Mean Corpuscular Hemoglobin 31.9 pg (28.0-32.0); Mean Corpuscular Hgb Conc. 33.1 g/dL (32.0-36.0); Mean Corpuscular Volume 96.4 fL (80.0-100.0); Mean Platelet Volume 9.3 fL (7.4-10.4); Monocytes # (auto) 0.7 uL; Monocytes % (auto) 4.4 % (0.0-12.0); Neutrophils # (auto) 14.3 uL; Neutrophils % (auto) 89.6 % (37.0-80.0); Platelet Count (auto) 340 10^3/uL (140-450); Red Cell Distribution Width 15.3 % (11.6-16.0); White Blood Cell 15.9 10^3/uL (4.4-10.8)
[2017-05-19 04:20] LABS: INR 1.16 (0.9-1.15)
[2017-05-19 04:26] LABS: BUN/Creatinine Ratio 48.3; Bilirubin, Total 0.8 mg/dL (0.2-1.0); Calcium 9.7 mg/dL (8.5-10.1); Potassium 4.1 mmol/L (3.5-5.1); Total Protein 7.1 g/dL (6.4-8.2)
[2017-05-19 04:33] LABS: Prothrombin Time 12.7 sec (9.37-12.3)
[2017-05-19] MEDS: PRO-STAT 64 30ML GT SCH ×3 (05:54→22:00)
[2017-05-19] MEDS: CeftoloZANE-TAZOB 1g/0.5g in D5W 5% 100 ML IV SCH ×3 (05:55→22:00)
[2017-05-19] MEDS: ACCU-CHEK COMFORT CURVE STRIP VI SCH ×3 (05:55→18:19)
[2017-05-19] MEDS: InsuLIN REG 1unit/0.01ml Soln (100units/ml) SC SCH ×3 (05:55→18:19)
[2017-05-19] MEDS: LEVOTHYROXINE SODIUM 50 MCG TAB PO SCH (06:33)
[2017-05-19] MEDS: NICARDIPINE 25MG/250ML BAG KIT 250 ML IV SCH ×4 (08:15→20:53)
[2017-05-19] MEDS: PANTOPRAZOLE SODIUM 40 MG/10 ML VIAL IV SCH (10:20)
[2017-05-19] MEDS: BUMETANIDE (0.25 MG/ML) INJ 10ML IV SCH (10:20)
[2017-05-19] MEDS: POTASSIUM CHL 10% (20 MEQ/15ML) ORAL SOLN GT SCH (10:20)
[2017-05-19] MEDS: SILDENAFIL CITRATE 20 MG TAB PO SCH ×3 (10:20→20:00)
[2017-05-19] MEDS: METOPROLOL TARTRATE 25 MG TAB PO SCH ×2 (10:21→22:16)
[2017-05-19] MEDS: methylPREDNISolone SOD SUCC 40 MG/ML VL IV SCH ×2 (10:21→22:16)
[2017-05-19] MEDS: ENOXAPARIN SOD 150 MG/1 ML SYRINGE SC SCH ×2 (10:21→22:16)
[2017-05-19] MEDS: SODIUM CHLOR 0.9% PF (SALINE LOCK) 10ML VIAL IV SCH ×2 (10:21→22:00)
[2017-05-19] MEDS: INSULIN DETEMIR(LEVEMIR) 1unit/0.01ml Soln (100units/ml) SC SCH ×2 (10:30→22:00)
[2017-05-19] MEDS ORDERED: ACETAMINOPHEN 500 MG TAB PO PRN (11:45)
[2017-05-19] MEDS: fentaNYL 50MCG/HR 50 MCG/HR PAT TD SCH (12:56)
[2017-05-20] VITALS (57 sets, daily range): BP systolic 104–147; BP diastolic 59–99
[2017-05-20] MEDS: ALBUTEROL SULF 2.5 MG/0.5ML(0.5%) NEB SOLN NEB SCH ×4 (00:30→19:12)
[2017-05-20] MEDS: IPRATROPIUM BROM 0.5 MG/2.5ML INH SOL NEB SCH ×4 (00:30→19:12)
[2017-05-20] MEDS: LORazepam 2MG/ML-1ML VIAL IV PRN (01:12)
[2017-05-20] MEDS: NICARDIPINE 25MG/250ML BAG KIT 250 ML IV SCH ×2 (01:53→06:53)
[2017-05-20] MEDS: CIPROFLOXACIN 0.3%OPTH(EYE) SOL 5ML RIGHTEYE SCH ×5 (02:00→18:00)
[2017-05-20 04:04] LABS: Basophils # (auto) 0 uL; Basophils % (auto) 0.1 % (0.0-2.0); CONDITION Y; Eosinophils # (auto) 0 uL; Eosinophils % (auto) 0.1 % (0.0-7.0); Hematocrit 50.9 % (41.0-53.0); Hemoglobin 16.6 g/dL (13.5-17.5); Lymphocytes # (auto) 0.9 uL; Lymphocytes % (auto) 5.2 % (10.0-50.0); Mean Corpuscular Hemoglobin 31.8 pg (28.0-32.0); Mean Corpuscular Hgb Conc. 32.7 g/dL (32.0-36.0); Mean Corpuscular Volume 97.2 fL (80.0-100.0); Monocytes # (auto) 0.9 uL; Monocytes % (auto) 5.3 % (0.0-12.0); Neutrophils # (auto) 15.7 uL; Neutrophils % (auto) 89.3 % (37.0-80.0); Platelet Count (auto) 303 10^3/uL (140-450); Red Cell Distribution Width 15.6 % (11.6-16.0); White Blood Cell 17.5 10^3/uL (4.4-10.8)
[2017-05-20] MEDS: AMIKACIN 1,500 MG in D5W 5% 250 ML IV SCH (04:12)
[2017-05-20 04:16] LABS: INR 1.22 (0.9-1.15); Prothrombin Time 13.3 sec (9.37-12.3)
[2017-05-20 04:31] LABS: Calcium 9.3 mg/dL (8.5-10.1)
[2017-05-20 04:35] LABS: Magnesium 1.9 mg/dL (1.6-2.6)
[2017-05-20 04:42] LABS: BUN/Creatinine Ratio 45.5
[2017-05-20 04:50] LABS: Bilirubin, Total 0.9 mg/dL (0.2-1.0); Total Protein 7.3 g/dL (6.4-8.2)
[2017-05-20 04:58] LABS: Potassium 3.9 mmol/L (3.5-5.1)
[2017-05-20] MEDS: LEVOTHYROXINE SODIUM 50 MCG TAB PO SCH (05:42)
[2017-05-20] MEDS: CeftoloZANE-TAZOB 1g/0.5g in D5W 5% 100 ML IV SCH ×3 (05:42→22:10)
[2017-05-20] MEDS: PRO-STAT 64 30ML GT SCH ×3 (05:43→22:09)
[2017-05-20] MEDS: ACCU-CHEK COMFORT CURVE STRIP VI SCH ×4 (05:43→18:13)
[2017-05-20] MEDS: InsuLIN REG 1unit/0.01ml Soln (100units/ml) SC SCH ×4 (05:56→18:23)
[2017-05-20 09:57] LABS: Base Excess 3.6 mmol/L (-2.0-2.0); Blood 02Sat 94.5 % (96-100); Blood COHb 0.9 % (0.5-1.5); Blood MetHb 0.4 % (0.0-1.5); HCO3 27.9 mmol/L (22-26.0); HHb 5.4 % (0.0-5.0); MODE OXYMIZER; O2Hb 93.3 % (94.0-97.0); PO2 75.6 mmHg (80.0-100.0); PO2(T) 75.6 mmHg (80.0-100.0); Sample Type Arterial; pH 7.451 (7.350-7.450)
[2017-05-20] MEDS: INSULIN DETEMIR(LEVEMIR) 1unit/0.01ml Soln (100units/ml) SC SCH (10:00)
[2017-05-20] MEDS: ENOXAPARIN SOD 150 MG/1 ML SYRINGE SC SCH ×2 (10:00→22:15)
[2017-05-20] MEDS: SILDENAFIL CITRATE 20 MG TAB PO SCH ×3 (10:41→20:45)
[2017-05-20] MEDS: POTASSIUM CHL 10% (20 MEQ/15ML) ORAL SOLN GT SCH (10:41)
[2017-05-20] MEDS: PANTOPRAZOLE SODIUM 40 MG/10 ML VIAL IV SCH (10:42)
[2017-05-20] MEDS: BUMETANIDE (0.25 MG/ML) INJ 10ML IV SCH (10:42)
[2017-05-20] MEDS: methylPREDNISolone SOD SUCC 40 MG/ML VL IV SCH ×2 (10:43→22:10)
[2017-05-20] MEDS: SODIUM CHLOR 0.9% PF (SALINE LOCK) 10ML VIAL IV SCH ×2 (10:43→22:09)
[2017-05-20] MEDS: METOPROLOL TARTRATE 25 MG TAB PO SCH ×2 (10:43→22:14)
[2017-05-20] MEDS: metroNIDAZOLE 500 MG TAB PO SCH ×2 (14:41→22:14)
[2017-05-20] MEDS ORDERED: WARFARIN SODIUM 2.5 MG TAB PO ONE (17:00)
[2017-05-20] MEDS ORDERED: INSULIN DETEMIR(LEVEMIR) 1unit/0.01ml Soln (100units/ml) SC SCH (22:00)
[2017-05-20] MEDS: FLORASTOR (S. BOULARDII) 250 MG CAP PO SCH (22:12)
[2017-05-20] MEDS: MORPHINE SULFATE 4 MG/ML SYRG IV PRN (22:16)
[2017-05-21] VITALS (20 sets, daily range): BP systolic 102–159; BP diastolic 57–99
[2017-05-21] MEDS ORDERED: HALOPERIDOL LACTATE 5 MG/ML INJ VIAL IM ONE (00:30)
[2017-05-21] MEDS: MORPHINE SULFATE 4 MG/ML SYRG IV PRN (01:00)
[2017-05-21] MEDS: LORazepam 2MG/ML-1ML VIAL IV PRN ×2 (02:16→22:00)
[2017-05-21 03:54] LABS: Basophils # (auto) 0 uL; CONDITION Y; Eosinophils # (auto) 0 uL; Eosinophils % (auto) 0.1 % (0.0-7.0); Hematocrit 49.6 % (41.0-53.0); Hemoglobin 16.2 g/dL (13.5-17.5); Lymphocytes # (auto) 0.6 uL; Lymphocytes % (auto) 3.3 % (10.0-50.0); Mean Corpuscular Hemoglobin 31.2 pg (28.0-32.0); Mean Corpuscular Hgb Conc. 32.6 g/dL (32.0-36.0); Mean Corpuscular Volume 95.6 fL (80.0-100.0); Mean Platelet Volume 9.9 fL (7.4-10.4); Monocytes % (auto) 5.8 % (0.0-12.0); Neutrophils # (auto) 15.3 uL; Neutrophils % (auto) 90.8 % (37.0-80.0); Platelet Count (auto) 235 10^3/uL (140-450); Red Cell Distribution Width 15.3 % (11.6-16.0); SUSPECT SEE PRINTOUT; White Blood Cell 16.9 10^3/uL (4.4-10.8)
[2017-05-21 04:06] LABS: INR 1.24 (0.9-1.15); Partial Thromboplastin Time 33.9 sec (22.64-33.71)
[2017-05-21 04:15] LABS: Prothrombin Time 13.6 sec (9.37-12.3)
[2017-05-21] MEDS: AMIKACIN 1,500 MG in D5W 5% 250 ML IV SCH (04:19)
[2017-05-21] MEDS: InsuLIN REG 1unit/0.01ml Soln (100units/ml) SC SCH ×4 (06:00→18:07)
[2017-05-21] MEDS: metroNIDAZOLE 500 MG TAB PO SCH ×3 (06:00→21:55)
[2017-05-21] MEDS: PRO-STAT 64 30ML GT SCH ×3 (06:00→21:54)
[2017-05-21] MEDS: ACCU-CHEK COMFORT CURVE STRIP VI SCH ×4 (06:00→18:06)
[2017-05-21] MEDS: ALBUTEROL SULF 2.5 MG/0.5ML(0.5%) NEB SOLN NEB SCH ×4 (06:12→18:51)
[2017-05-21] MEDS: IPRATROPIUM BROM 0.5 MG/2.5ML INH SOL NEB SCH ×4 (06:12→18:51)
[2017-05-21] MEDS: LEVOTHYROXINE SODIUM 50 MCG TAB PO SCH (07:00)
[2017-05-21] MEDS: CeftoloZANE-TAZOB 1g/0.5g in D5W 5% 100 ML IV SCH ×3 (08:26→21:55)
[2017-05-21] MEDS: POTASSIUM CHL 10% (20 MEQ/15ML) ORAL SOLN GT SCH (10:00)
[2017-05-21] MEDS: METOPROLOL TARTRATE 25 MG TAB PO SCH ×2 (10:51→21:56)
[2017-05-21] MEDS: FLORASTOR (S. BOULARDII) 250 MG CAP PO SCH ×2 (10:52→21:55)
[2017-05-21] MEDS: SILDENAFIL CITRATE 20 MG TAB PO SCH ×3 (10:52→20:00)
[2017-05-21] MEDS: ENOXAPARIN SOD 150 MG/1 ML SYRINGE SC SCH ×2 (10:52→22:00)
[2017-05-21] MEDS: SODIUM CHLOR 0.9% PF (SALINE LOCK) 10ML VIAL IV SCH ×2 (10:53→21:54)
[2017-05-21] MEDS: BUMETANIDE (0.25 MG/ML) INJ 10ML IV SCH (10:53)
[2017-05-21] MEDS: methylPREDNISolone SOD SUCC 40 MG/ML VL IV SCH ×2 (10:53→21:54)
[2017-05-21] MEDS ORDERED: HALOPERIDOL LACTATE 5 MG/ML INJ VIAL IM PRN (11:15)
[2017-05-21] MEDS ORDERED: AMIKACIN 0 ML IV SCH (11:15)
[2017-05-21] MEDS ORDERED: WARFARIN SODIUM 2.5 MG TAB PO ONE (17:00)
[2017-05-21] MEDS: INSULIN DETEMIR(LEVEMIR) 1unit/0.01ml Soln (100units/ml) SC SCH (21:56)
[2017-05-22] VITALS (8 sets, daily range): BP systolic 130–138; BP diastolic 51–93
[2017-05-22] MEDS: ALBUTEROL SULF 2.5 MG/0.5ML(0.5%) NEB SOLN NEB SCH ×4 (00:15→18:28)
[2017-05-22] MEDS: IPRATROPIUM BROM 0.5 MG/2.5ML INH SOL NEB SCH ×4 (00:15→18:28)
[2017-05-22] MEDS: AMIKACIN 1,500 MG in D5W 5% 250 ML IV SCH (04:00)
[2017-05-22] MEDS: metroNIDAZOLE 500 MG TAB PO SCH ×3 (05:17→22:07)
[2017-05-22] MEDS: PRO-STAT 64 30ML GT SCH ×3 (05:17→22:00)
[2017-05-22] MEDS: ACCU-CHEK COMFORT CURVE STRIP VI SCH ×4 (05:17→18:08)
[2017-05-22] MEDS: CeftoloZANE-TAZOB 1g/0.5g in D5W 5% 100 ML IV SCH ×3 (05:17→22:05)
[2017-05-22] MEDS: LORazepam 2MG/ML-1ML VIAL IV PRN (05:20)
[2017-05-22 06:26] LABS: Basophils # (auto) 0 uL; CONDITION Y; Eosinophils # (auto) 0 uL; Hematocrit 49.4 % (41.0-53.0); Hemoglobin 16.1 g/dL (13.5-17.5); Lymphocytes # (auto) 0.9 uL; Lymphocytes % (auto) 5.8 % (10.0-50.0); Mean Corpuscular Hemoglobin 31.7 pg (28.0-32.0); Mean Corpuscular Hgb Conc. 32.6 g/dL (32.0-36.0); Mean Corpuscular Volume 97.1 fL (80.0-100.0); Mean Platelet Volume 9.7 fL (7.4-10.4); Monocytes # (auto) 0.9 uL; Monocytes % (auto) 5.6 % (0.0-12.0); Neutrophils # (auto) 14.1 uL; Neutrophils % (auto) 88.6 % (37.0-80.0); Platelet Count (auto) 311 10^3/uL (140-450); Red Cell Distribution Width 15.6 % (11.6-16.0); SUSPECT SEE PRINTOUT; White Blood Cell 15.9 10^3/uL (4.4-10.8)
[2017-05-22 06:43] LABS: Potassium 3.8 mmol/L (3.5-5.1)
[2017-05-22 06:45] LABS: INR 1.63 (0.9-1.15); Partial Thromboplastin Time 34.5 sec (22.64-33.71)
[2017-05-22 06:48] LABS: Prothrombin Time 17.8 sec (9.37-12.3)
[2017-05-22 06:50] LABS: Calcium 9.4 mg/dL (8.5-10.1)
[2017-05-22] MEDS: LEVOTHYROXINE SODIUM 50 MCG TAB PO SCH (07:00)
[2017-05-22] MEDS: InsuLIN REG 1unit/0.01ml Soln (100units/ml) SC SCH ×4 (07:30→18:08)
[2017-05-22] MEDS: SILDENAFIL CITRATE 20 MG TAB PO SCH ×2 (08:56→22:08)
[2017-05-22] MEDS: FLORASTOR (S. BOULARDII) 250 MG CAP PO SCH ×2 (10:00→22:00)
[2017-05-22] MEDS ORDERED: BUMETANIDE 1 MG TAB PO SCH (10:00)
[2017-05-22] MEDS: INSULIN DETEMIR(LEVEMIR) 1unit/0.01ml Soln (100units/ml) SC SCH ×2 (10:00→22:10)
[2017-05-22] MEDS: methylPREDNISolone SOD SUCC 40 MG/ML VL IV SCH (10:03)
[2017-05-22] MEDS: POTASSIUM CHL 10% (20 MEQ/15ML) ORAL SOLN GT SCH (10:03)
[2017-05-22] MEDS: SODIUM CHLOR 0.9% PF (SALINE LOCK) 10ML VIAL IV SCH ×2 (10:03→22:06)
[2017-05-22] MEDS: METOPROLOL TARTRATE 25 MG TAB PO SCH ×2 (10:04→22:08)
[2017-05-22] MEDS: ENOXAPARIN SOD 150 MG/1 ML SYRINGE SC SCH ×2 (10:05→22:07)
[2017-05-22] MEDS: fentaNYL 50MCG/HR 50 MCG/HR PAT TD SCH (11:52)
[2017-05-22] MEDS ORDERED: WARFARIN SODIUM 5 MG TAB PO ONE (17:00)
[2017-05-23] VITALS (8 sets, daily range): BP systolic 118–139; BP diastolic 70–93
[2017-05-23] MEDS: InsuLIN REG 1unit/0.01ml Soln (100units/ml) SC SCH ×4 (00:08→18:05)
[2017-05-23] MEDS: ACCU-CHEK COMFORT CURVE STRIP VI SCH ×4 (00:08→17:49)
[2017-05-23] MEDS: IPRATROPIUM BROM 0.5 MG/2.5ML INH SOL NEB SCH ×4 (00:15→18:27)
[2017-05-23] MEDS: ALBUTEROL SULF 2.5 MG/0.5ML(0.5%) NEB SOLN NEB SCH ×4 (00:15→18:27)
[2017-05-23] MEDS: AMIKACIN 1,500 MG in D5W 5% 250 ML IV SCH (03:41)
[2017-05-23] MEDS: PRO-STAT 64 30ML GT SCH ×3 (05:08→22:00)
[2017-05-23] MEDS: LEVOTHYROXINE SODIUM 50 MCG TAB PO SCH (05:33)
[2017-05-23] MEDS: metroNIDAZOLE 500 MG TAB PO SCH ×3 (05:34→21:00)
[2017-05-23] MEDS: CeftoloZANE-TAZOB 1g/0.5g in D5W 5% 100 ML IV SCH ×3 (06:00→21:17)
[2017-05-23 06:08] LABS: INR 2.49 (0.9-1.15); Partial Thromboplastin Time 35.3 sec (22.64-33.71); Prothrombin Time 27.4 sec (9.37-12.3)
[2017-05-23] MEDS: SODIUM CHLOR 0.9% PF (SALINE LOCK) 10ML VIAL IV SCH ×2 (09:35→21:00)
[2017-05-23] MEDS: INSULIN DETEMIR(LEVEMIR) 1unit/0.01ml Soln (100units/ml) SC SCH ×2 (09:54→22:00)
[2017-05-23] MEDS: METOPROLOL TARTRATE 25 MG TAB PO SCH ×2 (09:55→21:06)
[2017-05-23] MEDS: SILDENAFIL CITRATE 20 MG TAB PO SCH ×2 (09:55→20:59)
[2017-05-23] MEDS: predniSONE 20 MG TAB PO SCH (09:55)
[2017-05-23] MEDS: ENOXAPARIN SOD 150 MG/1 ML SYRINGE SC SCH (09:55)
[2017-05-23] MEDS ORDERED: MORPHINE SULFATE 4 MG/ML SYRG IV PRN (10:15)
[2017-05-23] MEDS: FLORASTOR (S. BOULARDII) 250 MG CAP PO SCH ×2 (10:36→20:59)
[2017-05-23] MEDS ORDERED: methylPREDNISolone SOD SUCC 125 MG/2 ML VL IV ONE (15:45)
[2017-05-23 15:57] LABS: Allen Test Yes; Base Excess 4.2 mmol/L (-2.0-2.0); Blood COHb 0.6 % (0.5-1.5); Blood MetHb 0.4 % (0.0-1.5); HCO3 28.4 mmol/L (22-26.0); HHb 5.9 % (0.0-5.0); MODE OXYMIZER; O2Hb 93.1 % (94.0-97.0); PCO2 41.1 mmHg (35.0-45.0); PCO2(T) 41.1 mmHg (35.0-45.0); PO2 72.5 mmHg (80.0-100.0); PO2(T) 72.5 mmHg (80.0-100.0); Room 0261D; Sample Type Arterial; pH 7.458 (7.350-7.450)
[2017-05-23] MEDS ORDERED: ENOXAPARIN SOD 150 MG/1 ML SYRINGE SC ONE (16:30)
[2017-05-23] MEDS ORDERED: WARFARIN SODIUM 2 MG TAB PO ONE (17:00)
[2017-05-24] VITALS: BP 123/62
[2017-05-24] MEDS: ALBUTEROL SULF 2.5 MG/0.5ML(0.5%) NEB SOLN NEB SCH ×4 (00:05→19:39)
[2017-05-24] MEDS: IPRATROPIUM BROM 0.5 MG/2.5ML INH SOL NEB SCH ×4 (00:05→19:39)
[2017-05-24] MEDS: AMIKACIN 1,500 MG in D5W 5% 250 ML IV SCH (03:27)
[2017-05-24 04:00] VITALS: BP 103/63
[2017-05-24] MEDS: ACCU-CHEK COMFORT CURVE STRIP VI SCH ×5 (05:09→23:49)
[2017-05-24] MEDS: InsuLIN REG 1unit/0.01ml Soln (100units/ml) SC SCH ×5 (05:09→23:49)
[2017-05-24 05:50] LABS: Basophils # (auto) 0 uL; Basophils % (auto) 0.3 % (0.0-2.0); CONDITION Y; Eosinophils # (auto) 0 uL; Eosinophils % (auto) 0.2 % (0.0-7.0); Hematocrit 46.9 % (41.0-53.0); Hemoglobin 15.8 g/dL (13.5-17.5); Lymphocytes # (auto) 1.7 uL; Lymphocytes % (auto) 11.3 % (10.0-50.0); Mean Corpuscular Hemoglobin 32.5 pg (28.0-32.0); Mean Corpuscular Hgb Conc. 33.7 g/dL (32.0-36.0); Mean Corpuscular Volume 96.3 fL (80.0-100.0); Mean Platelet Volume 9.6 fL (7.4-10.4); Monocytes # (auto) 1.2 uL; Monocytes % (auto) 8.3 % (0.0-12.0); Neutrophils % (auto) 79.9 % (37.0-80.0); Platelet Count (auto) 296 10^3/uL (140-450); Red Cell Distribution Width 15.4 % (11.6-16.0)
[2017-05-24] MEDS: LEVOTHYROXINE SODIUM 50 MCG TAB PO SCH (05:52)
[2017-05-24] MEDS: metroNIDAZOLE 500 MG TAB PO SCH ×3 (05:52→21:31)
[2017-05-24] MEDS: CeftoloZANE-TAZOB 1g/0.5g in D5W 5% 100 ML IV SCH ×2 (05:52→14:06)
[2017-05-24] MEDS: PRO-STAT 64 30ML GT SCH ×3 (06:00→22:00)
[2017-05-24 06:05] LABS: INR 2.37 (0.9-1.15); Partial Thromboplastin Time 38.4 sec (22.64-33.71)
[2017-05-24 06:14] LABS: BUN/Creatinine Ratio 42.4; Potassium 3.6 mmol/L (3.5-5.1)
[2017-05-24 06:16] LABS: Bilirubin, Total 0.8 mg/dL (0.2-1.0); Total Protein 6.7 g/dL (6.4-8.2)
[2017-05-24 06:28] LABS: Prothrombin Time 26.1 sec (9.37-12.3)
[2017-05-24 08:00] VITALS: BP 146/86
[2017-05-24] MEDS: SILDENAFIL CITRATE 20 MG TAB PO SCH ×3 (08:16→20:10)
[2017-05-24] MEDS: SODIUM CHLOR 0.9% PF (SALINE LOCK) 10ML VIAL IV SCH ×2 (09:31→21:30)
[2017-05-24] MEDS: INSULIN DETEMIR(LEVEMIR) 1unit/0.01ml Soln (100units/ml) SC SCH ×2 (09:38→22:09)
[2017-05-24] MEDS: predniSONE 20 MG TAB PO SCH (09:43)
[2017-05-24] MEDS: FLORASTOR (S. BOULARDII) 250 MG CAP PO SCH ×2 (09:44→22:02)
[2017-05-24] MEDS: METOPROLOL TARTRATE 25 MG TAB PO SCH ×2 (09:45→21:31)
[2017-05-24 12:00] VITALS: BP 114/63
[2017-05-24 15:51] VITALS: BP 119/71
[2017-05-24] MEDS ORDERED: WARFARIN SODIUM 1 MG TAB PO ONE (17:00)
[2017-05-24 20:00] VITALS: BP 119/66
[2017-05-24] MEDS: CeftoloZANE-TAZOB 1g/0.5g VL 1.5 GM in D5W 5% 100 ML IV SCH (21:30)
[2017-05-25] VITALS (7 sets, daily range): BP systolic 111–136; BP diastolic 64–81
[2017-05-25] MEDS: IPRATROPIUM BROM 0.5 MG/2.5ML INH SOL NEB SCH ×4 (00:48→18:39)
[2017-05-25] MEDS: ALBUTEROL SULF 2.5 MG/0.5ML(0.5%) NEB SOLN NEB SCH ×4 (00:48→18:39)
[2017-05-25] MEDS: AMIKACIN 1,500 MG in D5W 5% 250 ML IV SCH (03:30)
[2017-05-25 05:36] LABS: Basophils # (auto) 0 uL; Basophils % (auto) 0.2 % (0.0-2.0); CONDITION Y; Eosinophils # (auto) 0.1 uL; Eosinophils % (auto) 0.9 % (0.0-7.0); Hematocrit 44.9 % (41.0-53.0); Hemoglobin 14.9 g/dL (13.5-17.5); Lymphocytes # (auto) 2.5 uL; Lymphocytes % (auto) 21.7 % (10.0-50.0); Mean Corpuscular Hemoglobin 31.8 pg (28.0-32.0); Mean Corpuscular Hgb Conc. 33.2 g/dL (32.0-36.0); Mean Corpuscular Volume 95.6 fL (80.0-100.0); Mean Platelet Volume 9.4 fL (7.4-10.4); Monocytes % (auto) 8.4 % (0.0-12.0); Neutrophils # (auto) 7.8 uL; Neutrophils % (auto) 68.8 % (37.0-80.0); Platelet Count (auto) 264 10^3/uL (140-450); Red Cell Distribution Width 15.8 % (11.6-16.0); White Blood Cell 11.4 10^3/uL (4.4-10.8)
[2017-05-25 05:50] LABS: INR 2.09 (0.9-1.15); Partial Thromboplastin Time 32.6 sec (22.64-33.71)
[2017-05-25 05:56] LABS: Prothrombin Time 22.9 sec (9.37-12.3)
[2017-05-25 05:57] LABS: Calcium 8.7 mg/dL (8.5-10.1); Potassium 3.3 mmol/L (3.5-5.1)
[2017-05-25 05:59] LABS: BUN/Creatinine Ratio 38.7
[2017-05-25] MEDS: InsuLIN REG 1unit/0.01ml Soln (100units/ml) SC SCH ×4 (06:00→23:41)
[2017-05-25] MEDS: PRO-STAT 64 30ML GT SCH ×2 (06:00→22:00)
[2017-05-25] MEDS: ACCU-CHEK COMFORT CURVE STRIP VI SCH ×4 (06:03→23:41)
[2017-05-25] MEDS: CeftoloZANE-TAZOB 1g/0.5g VL 1.5 GM in D5W 5% 100 ML IV SCH ×3 (06:06→22:11)
[2017-05-25] MEDS: metroNIDAZOLE 500 MG TAB PO SCH ×3 (06:07→22:11)
[2017-05-25] MEDS: LEVOTHYROXINE SODIUM 50 MCG TAB PO SCH (06:07)
[2017-05-25 07:05] LABS: Allen Test No; Blood 02Sat 96.5 % (96-100); Blood COHb 0.2 % (0.5-1.5); Blood MetHb 0.4 % (0.0-1.5); HCO3 30.5 mmol/L (22-26.0); HHb 3.5 % (0.0-5.0); MODE VAPOTHERM; O2Hb 95.9 % (94.0-97.0); PCO2 47.6 mmHg (35.0-45.0); PCO2(T) 47.6 mmHg (35.0-45.0); PO2 92.9 mmHg (80.0-100.0); PO2(T) 92.9 mmHg (80.0-100.0); Room 0261D; Sample Type Arterial; pH 7.424 (7.350-7.450)
[2017-05-25] MEDS: SILDENAFIL CITRATE 20 MG TAB PO SCH ×3 (08:50→19:38)
[2017-05-25] MEDS: FLORASTOR (S. BOULARDII) 250 MG CAP PO SCH ×2 (10:02→22:11)
[2017-05-25] MEDS: SODIUM CHLOR 0.9% PF (SALINE LOCK) 10ML VIAL IV SCH ×2 (10:04→22:10)
[2017-05-25] MEDS: METOPROLOL TARTRATE 25 MG TAB PO SCH ×2 (10:04→22:11)
[2017-05-25] MEDS: INSULIN DETEMIR(LEVEMIR) 1unit/0.01ml Soln (100units/ml) SC SCH ×2 (10:05→22:15)
[2017-05-25] MEDS: fentaNYL 50MCG/HR 50 MCG/HR PAT TD SCH (13:02)
[2017-05-25] MEDS ORDERED: NITROGLYCERIN 0.4 MG SL TAB SL PRN (14:45)
[2017-05-25] MEDS ORDERED: POTASSIUM CHL 20 Meq TABLET PO ONE (14:45)
[2017-05-25] MEDS ORDERED: ONDANSETRON HCL 4 MG/2 ML VIAL IV PRN (14:45)
[2017-05-25] MEDS ORDERED: WARFARIN SODIUM 2 MG TAB PO ONE (17:00)
[2017-05-25] MEDS: LORazepam 2MG/ML-1ML VIAL IV PRN ×2 (17:32→23:42)
[2017-05-26] VITALS: BP 126/82
[2017-05-26] MEDS: IPRATROPIUM BROM 0.5 MG/2.5ML INH SOL NEB SCH ×4 (00:10→18:49)
[2017-05-26] MEDS: ALBUTEROL SULF 2.5 MG/0.5ML(0.5%) NEB SOLN NEB SCH ×4 (00:10→18:50)
[2017-05-26 04:00] VITALS: BP 117/77
[2017-05-26] MEDS: AMIKACIN 1,500 MG in D5W 5% 250 ML IV SCH (04:05)
[2017-05-26 04:36] LABS: Basophils # (auto) 0 uL; Basophils % (auto) 0.5 % (0.0-2.0); CONDITION Y; Eosinophils # (auto) 0.2 uL; Eosinophils % (auto) 1.9 % (0.0-7.0); Hematocrit 43.9 % (41.0-53.0); Hemoglobin 14.6 g/dL (13.5-17.5); Lymphocytes # (auto) 1.9 uL; Lymphocytes % (auto) 21.7 % (10.0-50.0); Mean Corpuscular Hgb Conc. 33.3 g/dL (32.0-36.0); Mean Platelet Volume 9.4 fL (7.4-10.4); Monocytes # (auto) 0.9 uL; Monocytes % (auto) 10.1 % (0.0-12.0); Neutrophils # (auto) 5.8 uL; Neutrophils % (auto) 65.8 % (37.0-80.0); Platelet Count (auto) 267 10^3/uL (140-450); Red Cell Distribution Width 15.5 % (11.6-16.0); White Blood Cell 8.9 10^3/uL (4.4-10.8)
[2017-05-26 04:51] LABS: INR 1.89 (0.9-1.15)
[2017-05-26 04:54] LABS: Prothrombin Time 20.7 sec (9.37-12.3)
[2017-05-26 04:57] LABS: Albumin 2.7 g/dL (3.4-5.0); BUN/Creatinine Ratio 33.9; Bilirubin, Total 0.8 mg/dL (0.2-1.0); Calcium 8.8 mg/dL (8.5-10.1); Potassium 3.5 mmol/L (3.5-5.1); Total Protein 6.2 g/dL (6.4-8.2)
[2017-05-26] MEDS: PRO-STAT 64 30ML GT SCH ×3 (06:00→21:43)
[2017-05-26] MEDS: InsuLIN REG 1unit/0.01ml Soln (100units/ml) SC SCH ×4 (06:00→23:44)
[2017-05-26] MEDS: LEVOTHYROXINE SODIUM 50 MCG TAB PO SCH (06:17)
[2017-05-26] MEDS: ACCU-CHEK COMFORT CURVE STRIP VI SCH ×4 (06:17→23:44)
[2017-05-26] MEDS: metroNIDAZOLE 500 MG TAB PO SCH ×3 (06:17→21:42)
[2017-05-26] MEDS: CeftoloZANE-TAZOB 1g/0.5g VL 1.5 GM in D5W 5% 100 ML IV SCH ×3 (06:17→21:43)
[2017-05-26] MEDS: SILDENAFIL CITRATE 20 MG TAB PO SCH ×3 (08:58→19:29)
[2017-05-26] MEDS: INSULIN DETEMIR(LEVEMIR) 1unit/0.01ml Soln (100units/ml) SC SCH ×2 (10:00→21:43)
[2017-05-26] MEDS: FLORASTOR (S. BOULARDII) 250 MG CAP PO SCH ×2 (10:21→21:42)
[2017-05-26] MEDS: METOPROLOL TARTRATE 25 MG TAB PO SCH ×2 (10:23→21:42)
[2017-05-26] MEDS: SODIUM CHLOR 0.9% PF (SALINE LOCK) 10ML VIAL IV SCH ×2 (10:27→21:43)
[2017-05-26 12:00] VITALS: BP 108/73
[2017-05-26 15:52] VITALS: BP 121/67
[2017-05-26] MEDS ORDERED: WARFARIN SODIUM 2 MG TAB PO ONE (17:00)
[2017-05-26] MEDS: Boost Glucose Control 8 Ounces PO SCH (18:00)
[2017-05-26 20:00] VITALS: BP 113/74
[2017-05-26] MEDS: TEMAZEPAM 15 MG CAP PO PRN (21:42)
[2017-05-27] VITALS (7 sets, daily range): BP systolic 101–128; BP diastolic 52–80
[2017-05-27] MEDS: ALBUTEROL SULF 2.5 MG/0.5ML(0.5%) NEB SOLN NEB SCH ×4 (00:32→18:35)
[2017-05-27] MEDS: IPRATROPIUM BROM 0.5 MG/2.5ML INH SOL NEB SCH ×4 (00:32→18:35)
[2017-05-27] MEDS: AMIKACIN 1,500 MG in D5W 5% 250 ML IV SCH (03:38)
[2017-05-27 05:40] LABS: Basophils # (auto) 0 uL; Basophils % (auto) 0.6 % (0.0-2.0); CONDITION Y; Eosinophils # (auto) 0.2 uL; Eosinophils % (auto) 2.9 % (0.0-7.0); Hematocrit 44.1 % (41.0-53.0); Hemoglobin 14.5 g/dL (13.5-17.5); Lymphocytes # (auto) 1.5 uL; Lymphocytes % (auto) 19.3 % (10.0-50.0); Mean Corpuscular Hemoglobin 31.7 pg (28.0-32.0); Mean Corpuscular Hgb Conc. 32.9 g/dL (32.0-36.0); Mean Corpuscular Volume 96.2 fL (80.0-100.0); Mean Platelet Volume 9.6 fL (7.4-10.4); Monocytes # (auto) 0.8 uL; Neutrophils # (auto) 5.2 uL; Neutrophils % (auto) 67.2 % (37.0-80.0); Platelet Count (auto) 231 10^3/uL (140-450); Red Cell Distribution Width 15.4 % (11.6-16.0); White Blood Cell 7.8 10^3/uL (4.4-10.8)
[2017-05-27] MEDS: metroNIDAZOLE 500 MG TAB PO SCH ×3 (05:45→21:18)
[2017-05-27] MEDS: PRO-STAT 64 30ML GT SCH ×3 (05:45→22:00)
[2017-05-27] MEDS: ACCU-CHEK COMFORT CURVE STRIP VI SCH ×3 (05:46→18:00)
[2017-05-27] MEDS: InsuLIN REG 1unit/0.01ml Soln (100units/ml) SC SCH ×3 (05:46→18:00)
[2017-05-27] MEDS: LEVOTHYROXINE SODIUM 50 MCG TAB PO SCH (05:46)
[2017-05-27 05:56] LABS: INR 1.91 (0.9-1.15); Partial Thromboplastin Time 30.3 sec (22.64-33.71)
[2017-05-27] MEDS: CeftoloZANE-TAZOB 1g/0.5g VL 1.5 GM in D5W 5% 100 ML IV SCH ×3 (06:08→21:21)
[2017-05-27 06:20] LABS: Albumin 2.7 g/dL (3.4-5.0); Bilirubin, Total 0.6 mg/dL (0.2-1.0); Calcium 9.1 mg/dL (8.5-10.1); Potassium 3.2 mmol/L (3.5-5.1); Total Protein 6.1 g/dL (6.4-8.2)
[2017-05-27] MEDS: Boost Glucose Control 8 Ounces PO SCH ×2 (08:37→18:00)
[2017-05-27] MEDS: SILDENAFIL CITRATE 20 MG TAB PO SCH ×3 (08:37→21:19)
[2017-05-27] MEDS: INSULIN DETEMIR(LEVEMIR) 1unit/0.01ml Soln (100units/ml) SC SCH ×2 (11:00→21:21)
[2017-05-27] MEDS: SODIUM CHLOR 0.9% PF (SALINE LOCK) 10ML VIAL IV SCH ×2 (11:00→22:51)
[2017-05-27] MEDS: FLORASTOR (S. BOULARDII) 250 MG CAP PO SCH ×2 (11:00→21:19)
[2017-05-27] MEDS: METOPROLOL TARTRATE 25 MG TAB PO SCH ×2 (11:00→21:20)
[2017-05-27] MEDS ORDERED: fentaNYL 25MCG/HR 25 MCG/HR PAT TD SCH (11:30)
[2017-05-27] MEDS ORDERED: MORPHINE SULF INJ 2 MG/ML SYRINGE 1ML IV PRN (11:30)
[2017-05-27] MEDS ORDERED: POTASSIUM CHL 20 Meq TABLET PO ONE (11:30)
[2017-05-27] MEDS ORDERED: AMIKACIN 0 ML IV SCH (11:30)
[2017-05-27] MEDS: HYDROcodone-ACET 5/325MG TAB PO PRN ×2 (11:42→21:19)
[2017-05-27] MEDS ORDERED: WARFARIN SODIUM 2 MG TAB PO ONE (17:00)
[2017-05-27] MEDS: TEMAZEPAM 15 MG CAP PO PRN (21:18)
[2017-05-28] MEDS: IPRATROPIUM BROM 0.5 MG/2.5ML INH SOL NEB SCH ×4 (00:10→19:15)
[2017-05-28] MEDS: ALBUTEROL SULF 2.5 MG/0.5ML(0.5%) NEB SOLN NEB SCH ×4 (00:10→19:15)
[2017-05-28 03:54] VITALS: BP 137/77
[2017-05-28] MEDS: AMIKACIN 1,500 MG in D5W 5% 250 ML IV SCH (04:12)
[2017-05-28 04:48] LABS: INR 1.98 (0.9-1.15); Partial Thromboplastin Time 30.9 sec (22.64-33.71)
[2017-05-28 04:49] LABS: Prothrombin Time 21.7 sec (9.37-12.3)
[2017-05-28] MEDS: HYDROcodone-ACET 5/325MG TAB PO PRN ×2 (04:49→18:40)
[2017-05-28] MEDS: InsuLIN REG 1unit/0.01ml Soln (100units/ml) SC SCH ×4 (06:00→17:52)
[2017-05-28] MEDS: PRO-STAT 64 30ML GT SCH ×3 (06:22→21:28)
[2017-05-28] MEDS: CeftoloZANE-TAZOB 1g/0.5g VL 1.5 GM in D5W 5% 100 ML IV SCH ×3 (06:23→21:24)
[2017-05-28] MEDS: LEVOTHYROXINE SODIUM 50 MCG TAB PO SCH (06:24)
[2017-05-28] MEDS: metroNIDAZOLE 500 MG TAB PO SCH ×3 (06:24→21:25)
[2017-05-28] MEDS: ACCU-CHEK COMFORT CURVE STRIP VI SCH ×4 (06:24→17:52)
[2017-05-28 08:00] VITALS: BP 133/82
[2017-05-28] MEDS: Boost Glucose Control 8 Ounces PO SCH ×2 (09:38→18:49)
[2017-05-28] MEDS: SILDENAFIL CITRATE 20 MG TAB PO SCH ×3 (09:42→19:43)
[2017-05-28] MEDS: FLORASTOR (S. BOULARDII) 250 MG CAP PO SCH ×2 (09:42→21:25)
[2017-05-28] MEDS: METOPROLOL TARTRATE 25 MG TAB PO SCH ×2 (09:45→21:26)
[2017-05-28] MEDS: SODIUM CHLOR 0.9% PF (SALINE LOCK) 10ML VIAL IV SCH ×2 (09:45→21:24)
[2017-05-28] MEDS: INSULIN DETEMIR(LEVEMIR) 1unit/0.01ml Soln (100units/ml) SC SCH ×2 (09:46→21:29)
[2017-05-28] MEDS ORDERED: fentaNYL 50MCG/HR 50 MCG/HR PAT TD SCH (11:45)
[2017-05-28 11:56] VITALS: BP 113/67
[2017-05-28 15:55] VITALS: BP 115/63
[2017-05-28] MEDS ORDERED: WARFARIN SODIUM 2 MG TAB PO ONE (17:00)
[2017-05-28 19:49] VITALS: BP 115/61
[2017-05-28] MEDS: TEMAZEPAM 15 MG CAP PO PRN (21:39)
[2017-05-29] VITALS (7 sets, daily range): BP systolic 100–149; BP diastolic 47–92
[2017-05-29] MEDS: ACCU-CHEK COMFORT CURVE STRIP VI SCH ×4 (00:14→17:31)
[2017-05-29] MEDS: InsuLIN REG 1unit/0.01ml Soln (100units/ml) SC SCH ×4 (00:15→17:46)
[2017-05-29] MEDS: IPRATROPIUM BROM 0.5 MG/2.5ML INH SOL NEB SCH ×4 (00:20→18:15)
[2017-05-29] MEDS: ALBUTEROL SULF 2.5 MG/0.5ML(0.5%) NEB SOLN NEB SCH ×4 (00:20→18:15)
[2017-05-29] MEDS: HYDROcodone-ACET 5/325MG TAB PO PRN ×2 (01:22→09:47)
[2017-05-29] MEDS: AMIKACIN 1,500 MG in D5W 5% 250 ML IV SCH (03:51)
[2017-05-29] MEDS: CeftoloZANE-TAZOB 1g/0.5g VL 1.5 GM in D5W 5% 100 ML IV SCH ×2 (05:24→14:32)
[2017-05-29] MEDS: PRO-STAT 64 30ML GT SCH ×2 (05:24→13:25)
[2017-05-29] MEDS: metroNIDAZOLE 500 MG TAB PO SCH ×2 (05:26→14:32)
[2017-05-29] MEDS: LEVOTHYROXINE SODIUM 50 MCG TAB PO SCH (06:06)
[2017-05-29 06:10] LABS: INR 2.22 (0.9-1.15); Partial Thromboplastin Time 32.9 sec (22.64-33.71)
[2017-05-29 06:13] LABS: Prothrombin Time 24.4 sec (9.37-12.3)
[2017-05-29] MEDS: SILDENAFIL CITRATE 20 MG TAB PO SCH ×3 (09:46→20:29)
[2017-05-29] MEDS: FLORASTOR (S. BOULARDII) 250 MG CAP PO SCH (09:46)
[2017-05-29] MEDS: Boost Glucose Control 8 Ounces PO SCH ×2 (09:46→17:31)
[2017-05-29] MEDS: SODIUM CHLOR 0.9% PF (SALINE LOCK) 10ML VIAL IV SCH (09:47)
[2017-05-29] MEDS: METOPROLOL TARTRATE 25 MG TAB PO SCH (09:47)
[2017-05-29] MEDS: INSULIN DETEMIR(LEVEMIR) 1unit/0.01ml Soln (100units/ml) SC SCH (10:00)
[2017-05-29] MEDS ORDERED: CITALOPRAM HYDROBR 20 MG TAB PO ONE (11:30)
[2017-05-29] MEDS ORDERED: ENALAPRILAT 1.25 MG/ML-1ML VIAL IV PRN (11:30)
[2017-05-29] MEDS ORDERED: DEXTROSE (50%) 50ML SYRG IV PRN (11:30)
[2017-05-29] MEDS ORDERED: LORazepam 2MG/ML-1ML VIAL IV PRN (11:30)
[2017-05-29] MEDS ORDERED: WARFARIN SODIUM 2 MG TAB PO ONE (17:00)
[2017-05-30] MEDS ORDERED: LEVOTHYROXINE SODIUM 50 MCG TAB PO SCH (07:00)
[2017-05-30] MEDS ORDERED: CITALOPRAM HYDROBR 20 MG TAB PO SCH (10:00)
== END 2017-05-29 21:10 | disposition short-term general hospital (02) | DRG 313 ==
LOC: ER 08:42 → TELE 08:43 → DOU IN ICU 18:16 → ICU WEST 04-03 10:00 → DOU IN ICU 05-19 22:26 → ICU WEST 05-19 22:37 → DOU IN ICU 05-21 15:06
PROVIDERS: ADMIT Internal Medicine; ATTEND Internal Medicine
PROC: 5A1955Z Respiratory Ventilation, Greater than 96 Consecutive Hours (ICD-10-PCS; 2017-04-03)
PROC: 02HV33Z Insertion of Infusion Device into Superior Vena Cava, Percutaneous Approach (ICD-10-PCS; 2017-04-03)
PROC: 0BH17EZ Insertion of Endotracheal Airway into Trachea, Via Natural or Artificial Opening (ICD-10-PCS; 2017-04-03)
PROC: 02HQ32Z Insertion of Monitoring Device into Right Pulmonary Artery, Percutaneous Approach (ICD-10-PCS; 2017-04-17)
PROC: B246ZZ4 Ultrasonography of Right and Left Heart, Transesophageal (ICD-10-PCS; 2017-04-20)
PROC: 0B9D8ZX Drainage of Right Middle Lung Lobe, Via Natural or Artificial Opening Endoscopic, Diagnostic (ICD-10-PCS; 2017-05-08)
PROC: 0QSJ04Z Reposition Right Fibula with Internal Fixation Device, Open Approach (ICD-10-PCS; 2017-05-10)
PROC: 0HRMXK3 Replacement of Right Foot Skin with Nonautologous Tissue Substitute, Full Thickness, External Approach (ICD-10-PCS; 2017-05-10)
PROC: 2W3QX1Z Immobilization of Right Lower Leg using Splint (ICD-10-PCS; 2017-05-10)
PROC: 0QSG04Z Reposition Right Tibia with Internal Fixation Device, Open Approach (ICD-10-PCS; principal; 2017-05-10 12:24)
PROC: 5A09357 Assistance with Respiratory Ventilation, Less than 24 Consecutive Hours, Continuous Positive Airway Pressure (ICD-10-PCS; 2017-05-15)
DX: S82.841A Displaced bimalleolar fracture of right lower leg, initial encounter for closed fracture (principal); J96.21 Acute and chronic respiratory failure with hypoxia; I26.99 Other pulmonary embolism without acute cor pulmonale; J44.0 Chronic obstructive pulmonary disease with (acute) lower respiratory infection; N17.0 Acute kidney failure with tubular necrosis; R65.21 Severe sepsis with septic shock; J15.1 Pneumonia due to Pseudomonas; A41.9 Sepsis, unspecified organism; E43 Unspecified severe protein-calorie malnutrition; I27.2 Other secondary pulmonary hypertension; E66.2 Morbid (severe) obesity with alveolar hypoventilation; I50.43 Acute on chronic combined systolic (congestive) and diastolic (congestive) heart failure; I11.0 Hypertensive heart disease with heart failure; J18.9 Pneumonia, unspecified organism; I27.81 Cor pulmonale (chronic); E87.0 Hyperosmolality and hypernatremia; E11.65 Type 2 diabetes mellitus with hyperglycemia; J44.9 Chronic obstructive pulmonary disease, unspecified; S82.891A Other fracture of right lower leg, initial encounter for closed fracture; E03.9 Hypothyroidism, unspecified; F12.90 Cannabis use, unspecified, uncomplicated; Z99.11 Dependence on respirator [ventilator] status; E87.1 Hypo-osmolality and hyponatremia; E87.3 Alkalosis; E87.4 Mixed disorder of acid-base balance; E87.6 Hypokalemia; H57.02 Anisocoria; I08.1 Rheumatic disorders of both mitral and tricuspid valves; I34.0 Nonrheumatic mitral (valve) insufficiency; J96.22 Acute and chronic respiratory failure with hypercapnia; J98.11 Atelectasis; L03.115 Cellulitis of right lower limb; M13.10 Monoarthritis, not elsewhere classified, unspecified site; M19.90 Unspecified osteoarthritis, unspecified site; Z16.24 Resistance to multiple antibiotics; W06.XXXA Fall from bed, initial encounter; Z68.37 Body mass index [BMI] 37.0-37.9, adult; Z86.711 Personal history of pulmonary embolism; E86.0 Dehydration; Z80.9 Family history of malignant neoplasm, unspecified
CPT/HCPCS: 36415; 36569; 36600; 70450; 71010; 71275; 72125; 73590; 73610; 73630; 74000; 76000; 78582; 80048; 80053; 80150; 80202; 81001; 82805; 82962; 83036; 83615; 83735; 83880; 83930; 83935; 84100; 84132; 84443; 84484; 84550; 85025; 85379; 85610; 85730; 87040; 87070; 87077; 87081; 87186; 87205; 87493; 88312; 92610; 93005; 93306; 93312; 93970; 93971; 94002; 94003; 94640; 94660; 96361; 96365; 96366; 96375; 97110; 97163; 97530; A4565; C1713; C1751; C9113; J0171; J0330; J0690; J0696; J1450; J1815; J1956; J2250; J2405; J2543; J2704; J3010; J3480; J3490; J7060